=== PATIENT | male | born 1960 | race Caucasian/White ===

== ENCOUNTER → 2020-04-25 17:32 | Outpatient (CLI) | payer BC, SELFPAY | PROVIDERS: Referring Provider Nurse Practitioner Family; Visit Provider Nurse Practitioner Family | DX: Z20.828 Contact with and (suspected) exposure to other viral communicable diseases (principal); R50.9 Fever, unspecified; R09.89 Other specified symptoms and signs involving the circulatory and respiratory systems | CPT/HCPCS: 87635; C9803; U0003 ==

== ENCOUNTER → 2020-10-02 10:42 | Outpatient (CLI) | payer BC, SELFPAY ==
--- NOTE | 2020-10-02 10:47 | RAD_ITS ---
STUDY: X-RAY - THORACIC SPINE REASON FOR EXAM: Male, 60 years old. CHRONIC LOW BACK PAIN TECHNIQUE: 2 view(s) of the thoracic spine were obtained. COMPARISON: None. FINDINGS: Normal kyphosis of the thoracic spine. There is no substantial scoliosis. There is demineralization of the thoracic spine with endplate spondylosis. There is multilevel disc space narrowing of the thoracic spine. The soft tissue structures are unremarkable. RAD/Thoracic Spine 2 Views IMPRESSION: Multilevel disc space narrowing and spondylosis. Electronically Signed: Samy Workman MD at 18:14 EST , Service support ,
--- NOTE | 2020-10-02 10:47 | RAD_ITS ---
STUDY: X-RAY - LUMBAR SPINE REASON FOR EXAM: Male, 60 years old. CHRONIC LOW BACK PAIN TECHNIQUE: 3 view(s) of the lumbar spine were obtained. COMPARISON: None FINDINGS: There is an exaggerated lumbar lordosis. There is no substantial scoliosis. There is a normal alignment of the vertebrae. There is multilevel endplate spondylosis of the lumbar vertebrae. Mild degree of disc space narrowing at the L3-L4, L4-L5 and L5-S1 levels. The soft tissue structures are unremarkable. RAD/Lumbar Spine 2 or 3 Views IMPRESSION: Degenerative changes of the spine, as detailed above. Loss of the normal lumbar lordosis. Electronically Signed: Samy Workman MD at 18:22 EST , Service support ,
== END ==
PROVIDERS: PCP Nurse Practitioner Family; Referring Provider Nurse Practitioner Family; Visit Provider Nurse Practitioner Family
DX: M54.5 Low back pain (principal)
CPT/HCPCS: 72070; 72100

== ENCOUNTER → 2020-11-07 12:32 | Outpatient (CLI) | payer BC, SELFPAY ==
--- NOTE | 2020-11-07 12:49 | RAD_ITS ---
STUDY: X-RAY CHEST REASON FOR EXAM: Male, 60 years old. Chest pain, tachycardia TECHNIQUE: PA and 2 lateral views of the chest. COMPARISON: None. FINDINGS: The lungs are clear and expanded. There is no demonstrated pleural abnormality. Normal size heart. Normal mediastinum and yasir. Normal visualized pulmonary arteries. Normal visualized aortic arch and descending thoracic aorta. Normal visualized thoracic spine. Normal visualized ribs, clavicles, and shoulders. There is no demonstrated abnormality of the visualized soft tissue structures of the upper abdomen. RAD/Chest PA and Lateral IMPRESSION: Normal x-ray examination of the chest. Electronically Signed: Gutierrez Moreira MD at 13:04 EDT , Service support ,
[2020-11-07 14:02] LABS: Erythrocyte Sedimentation Rate 4 mm/hr (0-20)
[2020-11-07 14:04] LABS: Hematocrit 43.5 % (40-54); Hemoglobin 14.7 g/dL (13.0-16.5); Mean Corp Hgb Conc 33.8 g/dL (32-36); Mean Corpuscular Hgb 30.6 pg (27.0-32.0); Mean Corpuscular Volume 90.4 fL (80-94); Mean Platelet Vol. 9.6 fl (6.2-12.0); Platelet Count 267 K/mm3 (150-450); RBC Distribution Width CV 12.3 % (11.6-14.6); RBC Distribution Width SD 40.6 fl (35.1-43.9); Red Blood Count 4.81 M/mm3 (4.6-6.2); White Blood Count 5.7 K/mm3 (4.4-11.0)
[2020-11-07 14:39] LABS: ALB/GLOB Ratio 1.1 RATIO (0.9-2.4); AST(SGOT) 23 U/L (15-37); Alanine Aminotransfer ALT/SGPT 34 U/L (16-61); Albumin, Serum 3.8 g/dL (3.2-5.0); Alkaline Phosphatase 67 U/L (45-117); Anion Gap 5 (5-15); BUN 11 mg/dL (7-18); BUN/Creat Ratio 10.8 RATIO (10-20); CPK Total, Creatine Kinase 106 U/L (39-308); CRP < 2.90 mg/L (0.0-3.0); Calcium,Total 8.9 mg/dL (8.5-10.1); Chloride 103 mmol/L (98-107); Cholesterol 234 mg/dL (200); Creatinine, Serum 1.02 mg/dL (0.70-1.30); EST Glomerular Filtration Rate 79 mL/min (>60); Est Glom Filt Rate - Afr Amer 96 mL/min (>60); Globulin 3.5 g/dL (2.2-4.2); Glucose 95 mg/dL (74-106); High Density Lipoprotein 56 mg/dL; Potassium 3.9 mmol/L (3.5-5.1); Protein, Total 7.3 g/dL (6.4-8.2); Sodium Level 139 mmol/L (136-145); T4 Free Direct 1.16 ng/dL (0.76-1.46); Thyroid Stim Hormone (TSH) 1.61 uIU/mL (0.358-3.74); Triglycerides 147 mg/dL; Very Low Density Lipoprotein 29 mg/dL (5-40)
== END ==
PROVIDERS: PCP Nurse Practitioner Family; Referring Provider Nurse Practitioner Family; Visit Provider Nurse Practitioner Family
DX: Z13.220 Encounter for screening for lipoid disorders (principal); R07.9 Chest pain, unspecified; R94.31 Abnormal electrocardiogram [ECG] [EKG]; R00.2 Palpitations; R00.0 Tachycardia, unspecified
CPT/HCPCS: 36415; 71046; 80053; 80061; 82550; 84439; 84443; 84484; 85027; 85652; 86140

== ENCOUNTER → 2020-11-15 11:42 | Outpatient (CLI) | payer BC, SELFPAY ==
--- NOTE | 2020-11-15 11:49 | ECHOD_ITS ---
Reason For Study: CHEST PAIN Procedure This was a 2D Doppler, Color Flow transthoracic echocardiogram. Exam performed in department. Left Ventricle Normal LV size. Left ventricular systolic function is normal. The estimated ejection fraction is 55 %. No regional wall motion abnormalities noted. Right Ventricle Normal RV size. Normal systolic function. Atria Normal left atrium. Normal right atrium. Mitral Valve Normal mitral valve. Mild (1+) eccentric mitral valve insufficiency. Aortic Valve Normal aortic valve. Trisinus/trileaflet aortic valve. Trivial eccentric aortic valve insufficiency. Pulmonic Valve Normal pulmonic valve. Great Vessels Mild to moderately dilated aortic root. The pulmonary artery is normal size. Normal inferior vena cava. Pericardium/Pleural No pericardial effusion. MMode/2D Measurements & Calculations LVIDd: 5.0 cm IVSd: 1.0 cm Ao root diam: 4.7 cm LVIDs: 3.2 cm LVPWd: 0.90 cm RVDd: 3.3 cm FS: 35.8 % LAV(MOD-bp): 54.6 ml LA A4 area: 17.2 cm2 RA A4 area: 14.2 cm2 LAV(MOD-bp) Indexed: 25.1 ml/m2 LAV(MOD-sp2): 59.4 ml LAV(MOD-sp4): 45.1 ml Time Measurements MV dec time: 0.27 sec Doppler Measurements & Calculations MV E max jos: 46.1 cm/sec Lat Peak E' Jos: 8.0 cm/sec Med Peak E' Jos: 4.8 cm/sec MV A max jos: 53.3 cm/sec E/E' lat: 5.8 E/E' med: 9.5 MV E/A: 0.87 Ao V2 max: 113.3 cm/sec LV V1 max: 98.5 cm/sec PA V2 max: 107.9 cm/sec Ao max P.1 mmHg LV V1 max P.9 mmHg TR max jos: 264.6 cm/sec TR max P.2 mmHg ECHO/Echo Complete Interpretation Summary Normal LV size. Left ventricular systolic function is normal. The estimated ejection fraction is 55 %. Mild (1+) eccentric mitral valve insufficiency. Mild to moderately dilated aortic root. Trivial eccentric aortic valve insufficiency. Ordering Physician: Jorge Alberto Gar Referring Physician: Jorge Alberto Gar Performed By: Olivia Waterman, RODY, RVT
--- NOTE | 2020-11-15 13:00 | STRESSREP ---
Stress Test Report Exercise stress test. 60-year-old man with a history of chest pain. Resting KG demonstrates normal sinus rhythm with a rate of 61 bpm normal intervals are noted resting blood pressure is 1 and 32 over 80 mmHg. The patient exercised according to regular Maikol protocol for a total duration of 9 minutes. Patient completed stage III of the Maikol protocol. The maximum heart rate attained was 157 bpm which was 98% of max impacted heart rate the maximum workload was 10.4 metabolic equivalents. The patient did not experience any chest discomfort the test was terminated due to high blood pressure. The peak blood pressure was 210/70 mmHg. No arrhythmias were noted no chest pain was noted the rate-pressure/32,900. Exercise stress test with no EKG criteria for ischemia at a high workload. Excellent functional capacity. No ischemia noted.
== END ==
PROVIDERS: PCP Nurse Practitioner Family; Referring Provider Nurse Practitioner Family; Visit Provider Nurse Practitioner Family
DX: R00.2 Palpitations (principal); R00.0 Tachycardia, unspecified; R94.31 Abnormal electrocardiogram [ECG] [EKG]; R07.9 Chest pain, unspecified
CPT/HCPCS: 93017; 93225; 93226; 93306

== ENCOUNTER → 2020-12-11 08:30 | Outpatient (CLI) | payer BC, SELFPAY ==
--- NOTE | 2020-12-11 08:36 | CDU_ITS ---
Reason For Study: Syncope, Palpitations Rt. Velocities/BP Lt. Velocities/BP Prox CCA 102/21 cm/sec. Prox CCA 127/32 cm/sec. Mid CCA 111/32 cm/sec. Mid CCA 118/32 cm/sec. Dist CCA 98/28 cm/sec. Dist CCA 91/30 cm/sec. Prox ICA 64/13 cm/sec. Prox ICA 91/27 cm/sec. Mid ICA 71/25 cm/sec. Mid ICA 67/24 cm/sec. Dist ICA 72/30 cm/sec. Dist ICA 96/44 cm/sec. Rt. ICA/CCA = 0.7. Lt. ICA/CCA = 0.8. Prox ECA 114/19 cm/sec. Prox ECA 71/14 cm/sec. Rt. Vert. 46/10 cm/sec. Lt. Vert. 48/15 cm/sec. Right Extracranial There is intimal thickening but no significant atherosclerotic plaque noted in the right common carotid artery. There is intimal thickening but no significant atherosclerotic plaque noted in the right internal carotid artery. There is no significant atherosclerotic plaque noted in the right external carotid artery. Antegrade flow is noted in the right vertebral artery. Left Extracranial There is intimal thickening but no significant atherosclerotic plaque noted in the left common carotid artery. There is no significant atherosclerotic plaque noted in the left internal carotid artery. There is intimal thickening but no significant atherosclerotic plaque noted in the left external carotid artery. Antegrade flow is noted in the left vertebral artery. Procedure Carotid Duplex 29987. This is a Carotid Duplex examination using B-mode, color flow and specral Doppler. Exam performed in department. VL/Carotid Duplex Ultrasound Interpretation Summary Mild (<50%) stenosis right extracranial internal carotid. Mild (<50%) stenosis left extracranial internal carotid. Flow within the vertebral arteries is antegrade bilaterally. Ordering Physician: Jorge Alberto Gar Referring Physician: Jorge Alberto Gar Performed By: Marie Weber, RODY, RVT
== END ==
PROVIDERS: PCP Nurse Practitioner Family; Referring Provider Nurse Practitioner Family; Visit Provider Nurse Practitioner Family
DX: R00.2 Palpitations (principal); R55 Syncope and collapse
CPT/HCPCS: 93880

== ENCOUNTER → 2021-12-05 | Outpatient (CLI) | payer BC, SELFPAY ==
[2021-12-05 17:04] LABS: Hematocrit 42.4 % (40-54); Hemoglobin 14.4 g/dL (13.0-16.5); Mean Corpuscular Hgb 29.3 pg (27.0-32.0); Mean Corpuscular Volume 86.4 fL (80-94); Mean Platelet Vol. 9.2 fl (6.2-12.0); Platelet Count 272 K/mm3 (150-450); RBC Distribution Width CV 12.2 % (11.6-14.6); RBC Distribution Width SD 38.5 fl (35.1-43.9); Red Blood Count 4.91 M/mm3 (4.6-6.2); White Blood Count 5.7 K/mm3 (4.4-11.0)
[2021-12-05 17:54] LABS: AST(SGOT) 17 U/L (15-37); Alanine Aminotransfer ALT/SGPT 32 U/L (16-61); Albumin, Serum 3.6 g/dL (3.2-5.0); Alkaline Phosphatase 56 U/L (45-117); Anion Gap 5 (5-15); BUN 19 mg/dL (7-18); BUN/Creat Ratio 16.7 RATIO (10-20); Calcium,Total 8.7 mg/dL (8.5-10.1); Chloride 106 mmol/L (98-107); Cholesterol 224 mg/dL (200); Creatinine, Serum 1.14 mg/dL (0.70-1.30); EST Glomerular Filtration Rate 69 mL/min (>60); Est Glom Filt Rate - Afr Amer 84 mL/min (>60); Globulin 3.6 g/dL (2.2-4.2); Glucose 106 mg/dL (74-106); High Density Lipoprotein 40 mg/dL; PSA,Total - Annual Screen 1.46 ng/mL (0.00-4.00); Potassium 3.7 mmol/L (3.5-5.1); Protein, Total 7.2 g/dL (6.4-8.2); Sodium Level 140 mmol/L (136-145); Thyroid Stim Hormone (TSH) 2.97 uIU/mL (0.358-3.74); Triglycerides 226 mg/dL; Very Low Density Lipoprotein 45 mg/dL (5-40)
== END | disposition home or self-care (01) ==
LOC: LAB 16:35
PROVIDERS: PCP Nurse Practitioner Family; Referring Provider Nurse Practitioner Family; Visit Provider Nurse Practitioner Family
DX: R53.83 Other fatigue (principal); Z13.1 Encounter for screening for diabetes mellitus; Z13.6 Encounter for screening for cardiovascular disorders; Z12.5 Encounter for screening for malignant neoplasm of prostate
CPT/HCPCS: 36415; 80053; 80061; 84153; 84443; 85027; G0103

== ENCOUNTER → 2022-01-10 | Outpatient (CLI) | payer SELFPAY ==
[2022-01-09 06:00] VITALS: BP 144/85; PULSE 52; RESP 16; O2SAT 97
--- NOTE | 2022-01-10 13:35 | CT_ITS ---
STUDY: CT Chest W/O Contrast Injection 01/10/2022 5:41 PM REASON FOR EXAM: Male, 61 years old. HTN, palpitations, chest pain. Limited Chest OVER READ ONLY. Individualized dose optimization techniques were used for this CT. TECHNIQUE: Transaxial imaging was performed withoutIV contrast material. COMPARISON: None. FINDINGS: There is no pneumothorax. There is no demonstrated pleural abnormality. There are calcifications of the coronary arteries. Normal mediastinum. Normal hilar regions. Normal pulmonary arteries. There is atherosclerotic calcification of the aortic arch with tortuosity and elongation of the aortic arch and descending thoracic aorta. There is aneurysmal dilatation of the ascending aorta. The transverse diameter of the ascending aorta measures (in mm): 44. There are multi-level degenerative changes of the thoracic spine. Partially visualized hepatic hypodensities. ACR White Paper guidelines (C[place], et al. JACR 2017; 14(11):0318-1417.) suggest the following. For patients with low risk of malignancy, no further follow-up is necessary. For patients with high risk of malignancy (known malignancy with a propensity to metastasize to the liver, cirrhosis, and/or other hepatic risk factors), recommend follow-up abdominal CT or MR in [address]/Lim[address] Chest CT Cardiac Only IMPRESSION: There is aneurysmal dilatation of the ascending aorta. The transverse diameter of the ascending aorta measures (in mm): 44. Partially visualized hepatic hypodensities. ACR White Paper guidelines (Cumberland, et al. JACR 2017; 14(11):8696-3482.) suggest the following. For patients with low risk of malignancy, no further follow-up is necessary. For patients with high risk of malignancy (known malignancy with a propensity to metastasize to the liver, cirrhosis, and/or other hepatic risk factors), recommend follow-up abdominal CT or MR in 6 months. Electronically Signed: Stanislaw Garrido MD at 17:44 EDT ,
[2022-01-10 13:53] VITALS: BP 145/94; PULSE 50; RESP 16; O2SAT 100; BMI 25.0
[2022-01-10 14:15] VITALS: PULSE 50
[2022-01-10] MEDS: Nitroglycerin SL (ED/IMG/CATH) 0.4 MG TABLET SL (14:15)
[2022-01-10 14:16] LABS: CREATININE FINGERSTICK < 0.9 mg/dL (0.70-1.30); EGFR FINGERSTICK > 60.0000 mL/min (>60)
[2022-01-10 14:21] VITALS: BP 158/90; PULSE 55; RESP 16; O2SAT 97
--- NOTE | 2022-01-14 09:24 | CCTA.WCONT ---
CCTA w/Cont Coronary Arteries Date of Study:: 01/10/22 Chest pain The patient was brought to the radiology suite in the postabsorptive nonsedated state. Informed consent was obtained. The patient was hooked up to the panel monitor and good EKG assessment was made. The patient was then administered 100 cc of intravenous contrast agent after ascertaining the heart rate was in the appropriate zone. Patient had been on metoprolol. Images were reconstructed and displayed as appropriate. LEFT MAIN CORONARY ARTERY: Arises from the left coronary cusp and noted to be normal bifurcating to left anterior descending artery and left circumflex artery [] LEFT ANTERIOR DESCENDING CORONARY ARTERY: No significant stenosis noted in this vessel: Diagonal vessel was noted with no significant stenosis [] LEFT CIRCUMFLEX CORONARY ARTERY: Gave off a first obtuse marginal branch with no significant stenosis [] RIGHT CORONARY ARTERY: Large dominant vessel with no significant stenosis noted. [] THORACIC AORTA: Normal in size [] PULMONARY ARTERY: Normal in size [] LEFT ATRIUM/APPENDAGE: [] MITRAL VALVE: [] AORTIC VALVE: Trileaflet [] LEFT VENTRICLE: Normal in size [] CORONARY CALCIUM SCORE: Less than 1 [] Conclusion: Coronary calcium score of less than 1 and coronary anatomy defined with no significant atherosclerotic plaquing.
== END | disposition home or self-care (01) ==
LOC: CT 13:32
PROVIDERS: PCP Nurse Practitioner Family; Referring Provider Nurse Practitioner Family; Visit Provider Nurse Practitioner Family
DX: I10 Essential (primary) hypertension (principal); R00.2 Palpitations; R07.9 Chest pain, unspecified
CPT/HCPCS: 75571; 75574; 76380; Q9967

== ENCOUNTER → 2023-09-03 | Outpatient (CLI) | payer OTHER, SELFPAY ==
[2023-09-03 15:10] LABS: Hematocrit 42.8 % (40-54); Hemoglobin 14.4 g/dL (13.0-16.5); Mean Corp Hgb Conc 33.6 g/dL (32-36); Mean Corpuscular Hgb 29.6 pg (27.0-32.0); Mean Corpuscular Volume 88.1 fL (80-94); Mean Platelet Vol. 9.2 fl (6.2-12.0); Platelet Count 236 K/mm3 (150-450); RBC Distribution Width CV 12.4 % (11.6-14.6); RBC Distribution Width SD 40.1 fl (35.1-43.9); Red Blood Count 4.86 M/mm3 (4.6-6.2); White Blood Count 5.9 K/mm3 (4.4-11.0)
[2023-09-03 15:41] LABS: AST(SGOT) 24 U/L (15-37); Alanine Aminotransfer ALT/SGPT 30 U/L (16-61); Albumin, Serum 3.6 g/dL (3.2-5.0); Alkaline Phosphatase 67 U/L (45-117); Anion Gap 2 (5-15); BUN 14 mg/dL (7-18); BUN/Creat Ratio 14.5 RATIO (10-20); Calcium,Total 8.6 mg/dL (8.5-10.1); Chloride 108 mmol/L (98-107); Cholesterol 225 mg/dL (200); Creatinine, Serum 0.97 mg/dL (0.70-1.30); EST Glomerular Filtration Rate 83 mL/min (>60); Est Glom Filt Rate - Afr Amer 101 mL/min (>60); Globulin 3.5 g/dL (2.2-4.2); Glucose 103 mg/dL (74-106); High Density Lipoprotein 51 mg/dL; PSA,Total - Annual Screen 1.06 ng/mL (0.00-4.00); Potassium 3.8 mmol/L (3.5-5.1); Protein, Total 7.1 g/dL (6.4-8.2); Sodium Level 137 mmol/L (136-145); Triglycerides 191 mg/dL; Very Low Density Lipoprotein 38 mg/dL (5-40)
[2023-09-03 15:49] LABS: Microalbumin,Random Urine 12.8 mg/L (NO RANGE EST.); Microalbumin:Creatinine Ratio 6.3 mg/g CRE (<30 mg/g CRE)
== END | disposition home or self-care (01) ==
PROVIDERS: PCP Nurse Practitioner Family; Referring Provider Nurse Practitioner Family; Visit Provider Nurse Practitioner Family
DX: I10 Essential (primary) hypertension (principal); Z13.1 Encounter for screening for diabetes mellitus; Z13.6 Encounter for screening for cardiovascular disorders; Z12.5 Encounter for screening for malignant neoplasm of prostate
CPT/HCPCS: 36415; 80053; 80061; 82043; 82570; 83036; 84153; 85027; G0103

== ENCOUNTER → 2024-04-23 | Outpatient (CLI) | payer OTHER, SELFPAY ==
[2024-04-23 14:39] LABS: Hematocrit 45.3 % (40-54); Hemoglobin 15.4 g/dL (13.0-16.5); Mean Corpuscular Hgb 29.3 pg (27.0-32.0); Mean Corpuscular Volume 86.1 fL (80-94); Mean Platelet Vol. 9.1 fl (6.2-12.0); Platelet Count 263 K/mm3 (150-450); RBC Distribution Width CV 12.1 % (11.6-14.6); RBC Distribution Width SD 38.2 fl (35.1-43.9); Red Blood Count 5.26 M/mm3 (4.6-6.2); White Blood Count 6.4 K/mm3 (4.4-11.0)
[2024-04-23 15:38] LABS: AST(SGOT) 16 U/L (15-37); Alanine Aminotransfer ALT/SGPT 25 U/L (16-61); Albumin, Serum 3.8 g/dL (3.2-5.0); Alkaline Phosphatase 60 U/L (45-117); Anion Gap 6 (5-15); BUN 8 mg/dL (7-18); BUN/Creat Ratio 7.5 RATIO (10-20); Calcium,Total 9.2 mg/dL (8.5-10.1); Chloride 108 mmol/L (98-107); Creatinine, Serum 1.07 mg/dL (0.70-1.30); EST Glomerular Filtration Rate 74 mL/min (>60); Est Glom Filt Rate - Afr Amer 90 mL/min (>60); Globulin 3.9 g/dL (2.2-4.2); Glucose 136 mg/dL (74-106); Potassium 3.6 mmol/L (3.5-5.1); Protein, Total 7.7 g/dL (6.4-8.2); Sodium Level 139 mmol/L (136-145)
[2024-04-26 14:08] LABS: Giardia Lamblia, Stool EIA Negative (Negative)
== END | disposition home or self-care (01) ==
PROVIDERS: PCP Nurse Practitioner Family; Referring Provider Nurse Practitioner Family; Visit Provider Nurse Practitioner Family
DX: K52.9 Noninfective gastroenteritis and colitis, unspecified (principal)
CPT/HCPCS: 36415; 80053; 83630; 85027; 87329

== ENCOUNTER → 2024-09-03 | Outpatient (CLI) | payer OTHER, SELFPAY | END | disposition home or self-care (01) | LOC: LABSPEC 15:17 | PROVIDERS: PCP Nurse Practitioner Family; Referring Provider Nurse Practitioner Family; Visit Provider Nurse Practitioner Family | DX: K52.9 Noninfective gastroenteritis and colitis, unspecified (principal) | CPT/HCPCS: 87493 ==

== ENCOUNTER → 2024-10-07 | Outpatient (CLI) | payer OTHER, SELFPAY ==
[2024-10-09 16:08] LABS: Immunoglobulin A < 5 mg/dL (61-437); t-Transglutaminase IgA <2 U/mL (0-3)
== END | disposition home or self-care (01) ==
LOC: LAB 14:55
PROVIDERS: PCP Nurse Practitioner Family; Referring Provider Nurse Practitioner Acute Care; Visit Provider Nurse Practitioner Acute Care
DX: K58.0 Irritable bowel syndrome with diarrhea (principal)
CPT/HCPCS: 36415; 82784; 83516

== ENCOUNTER → 2024-11-02 | Outpatient (CLI) | payer OTHER, SELFPAY | END | disposition home or self-care (01) | PROVIDERS: PCP Nurse Practitioner Family; Referring Provider Nurse Practitioner Acute Care; Visit Provider Nurse Practitioner Acute Care | DX: R15.2 Fecal urgency (principal); R19.7 Diarrhea, unspecified; R76.8 Other specified abnormal immunological findings in serum | CPT/HCPCS: 36415; 83516 ==

== ENCOUNTER → 2024-11-08 | Outpatient (CLI) | payer OTHER, SELFPAY ==
[2024-11-10 16:09] LABS: Calprotectin, Stool 6 ug/g (0-120)
== END | disposition home or self-care (01) ==
LOC: LABSPEC 14:59
PROVIDERS: PCP Nurse Practitioner Family; Referring Provider Nurse Practitioner Acute Care; Visit Provider Nurse Practitioner Acute Care
DX: K58.0 Irritable bowel syndrome with diarrhea (principal)
CPT/HCPCS: 83993

== ENCOUNTER 2024-12-07 05:11 | Day surgery (SDC) | payer OTHER, SELFPAY ==
--- NOTE | 2024-12-03 14:49 | PAT.ANE_ITS ---
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 When Was Last Pacemaker Check QUESTION #4 FULL TEXT: You/Your Family Experience fever (hyperthermia) with Anesthesia Last Oral Intake Last Oral intake: Last Oral Intake NPO since Meds taken in AM with sips of water? Meds patient instructed to take am of surgery PONV PONV - patent litigation associate: PONV - patent litigation associate Female No 12/03/24 13:58 HX of Motion Sickness No 12/03/24 13:58 HX of N/V After Surgery No 12/03/24 13:58 Non-Smoker Yes 12/03/24 13:58 Duration of Surgery greater No 12/03/24 13:58 than 60 minutes Number of Risk Factors 1 12/03/24 13:58 PONV Score Low Risk 12/03/24 13:58 Height & Weight Height & Weight: Anesthesia: Height & Weight Height 6 ft 2 in 10/07/24 14:09 Respiratory Assessment Respiratory Assessment - patent litigation associate: Respiratory Tract Infection Hx - patent litigation associate Hx Respiratory Tract Infection No 12/03/24 13:58 STOP Sleep Apnea STOP Sleep Apnea - patent litigation associate: STOP Sleep Apnea - patent litigation associate Hx Hypertension Yes 12/03/24 13:58 Hx Sleep Apnea No 12/03/24 13:58 CPAP BIPAP Do you snore loudly (louder No 12/03/24 13:58 than talking or can be heard Do you often feel tired/ No 12/03/24 13:58 fatigued/ sleepy during daytime? Has anyone observed you stop No 12/03/24 13:58 breathing during sleep? STOP Results Negative 12/03/24 13:58 QUESTION #5 FULL TEXT : Do you snore loudly (louder than talking or can be heard through closed doors)? 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 Specify any problems Hx of Preganancy in last 3 N/A 12/03/24 13:58 Months Nurse Filling Out Transfusion VLEHMAN 12/03/24 13:58 & Questions: Date: 12/03/24 12/03/24 13:58 Time: 13:58 12/03/24 13:58 Patient unable to answer at this time (ie. confused, unrespo /Reproduction History /Reproductive History - patent litigation associate: /Reproductive Hx- patent litigation associate Hx Now No 12/03/24 13:58 Gestational Age (in weeks): EDC: Hx Hx Para Hx Section SAB PFSH Medical History Wears glasses Anxiety Marijuana use Alcohol use Arthritis Dietary restriction Gastric reflux Non-smoker History of irregular heartbeat History of echocardiogram History of stress test Cardiology follow-up encounter Dizziness Epigastric pain Osteoarthritis IBS (irritable bowel syndrome) HTN (hypertension) Sciatica Essential (primary) hypertension Insomnia Chronic low back pain Anxiety and depression Hyperlipidemia Dilated aortic root Non-sustained ventricular tachycardia Home Medications ?Medication ?Instructions ?Recorded ?Last Taken ?Type escitalopram oxalate 20 mg tablet 20 mg PO DAILY 12/09 Unknown History multivitamin 1 tab PO DAILY 12/09/20 Unkn own History alprazolam 0.25 mg tablet 0.25 mg PO BID PRN anxiety 0 12/13/20 Unknown History fluticasone propionate 50 1 spray intranasal DAILY PRN 12/13/20 Unknown History mcg/actuation nasal allergy symptoms spray,suspension (Flonase Allergy Relief) colesevelam 625 mg tablet 1,875 mg PO BID 10/07/24 Unk nown History diltiazem HCl 120 mg 60 mg PO BID 10/07/24 Unknow n History capsule,extended release 24 hr meloxicam 15 mg tablet 15 mg PO QDAY 10/07/24 Unkno wn History pantoprazole 20 mg tablet,delayed 20 mg PO QDAY Unknown History release tadalafil 5 mg tablet 5 mg PO QDAY 10/07/24 Unknow n History zolpidem 10 mg tablet 10 mg PO QHS 10/07/24 Unknow n History Allergy/AdvReac Type Severity Reaction Status Date / Time Sulfa (Sulfonamide Allergy hives Verified 12/03/24 13:54 Antibiotics) clarithromycin (From Biaxin) AdvReac diarrhea Verified 12/03/24 13:54 Family History Father Cancer throat Mother Hypertension Arthritis Grandfather Alcoholism Myocardial infarction Surgical History History of discectomy History of vasectomy Social History Smoking Status: Never smoker alcohol intake: current alcohol intake frequency: 3 or more drinks per day Alcohol type: hard liquor substance use type: marijuana Audit: Pertinent Findings Pertinent Findings Stress test pertinent findings: 11/15/2020. 10.4 METS. Negative. Echo (EF%) pertinent findings: 11/15/2020. EF 55% mild to moderate dilated aortic root. Consult pertinent findings: Cardiology 12/13/2020. Hypertension. Continue medication. Dilated aortic root chronic. 4.7 cm per echo 11/15/2020. Stable Recommendation Anesthesia Recommendation Anesthesia recommendation: OPTIMIZED for anesthesia
[2024-12-07] VITALS (8 sets, daily range): BP systolic 123–156; BP diastolic 73–91; PULSE 60–69; RESP 16–18; TEMP 36.5–36.7; O2SAT 95–98; BMI 25.5
--- NOTE | 2024-12-07 03:30 | COLBX_PTH ---
PATIENT: STEFFANIE PACK LOC: EN U#:[id number] AGE/SX: 64/M ROOM: RE12/07/[address]: Dr. Tae Gerber DO : 1960 BED: DIS: 12/07/2024 SPEC #: [id number] RECD: 12/07/24 08:08 STATUS: DYAN RASHIDA #: [id number] TIFFANY: 12/07/24 03:[address]: Tae Gerber DEPT: SURGICAL PATHOLOGY RECD BY: Shen Marquez ENTERED: 12/07/24 09:44 SP TYPE: COLON BX GIOVANNA DR: Jorge Alberto Gar, [employer]-C Tissues: A - Sigmoid colon biopsy Procedures: Surgery Specimen Level IV HEADER OPERATION: Flexible sigmoidoscopy with biopsy PRE-OP DIAGNOSIS: Diarrhea, irritable bowel syndrome with diarrhea, fecal urgency TISSUE SUBMITTED: A- Sigmoid colon biopsy MICROSCOPIC DIAGNOSIS A. Sigmoid colon, biopsy: * Superficial epithelial damage with slightly increased intraepithelial lymphocytes - see note. * Negative for acute inflammation, granulomas, and crypt distortion. * Note: The histologic findings raise consideration of early/evolving lymphocytic (microscopic) colitis vs medication injury or infection. There is no appreciable thickening of the subepithelial collagen table. Recommend correlation with clinical and endoscopic findings. MICROSCOPIC DESCRIPTION Slides are reviewed. GROSS DESCRIPTION A. Received in formalin in a container labeled with the patient's name, date of , and sigmoid colon biopsy are multiple sawant-pink fragments of mucosal tissue measuring 1.0 x 0.6 x 0.3 cm in aggregate. Submitted in toto in A1. [facility] 12-07-2024 CPT:99795
[2024-12-07] MEDS: Lactated Ringers 1,000 ML 15 ML IV (06:02)
--- NOTE | 2024-12-07 06:35 | PRE.ANES_ITS ---
ASA Classification* ASA Classification ASA Classification: 2 Assessment & Plan Anesthesia* Anesthesia Assessment Anesthesia Assessment: Discussed sedation and/or anesthesia options, risks, benefits, and alternatives with patient/parents/legal guardian/POA. Questions invited. The patient/parents/legal guardian/POA seems to understand and agrees to proceed with anesthesia plan. Reviewed the physical assessment, medical history, allergy history and patient home medications list prior to surgery/procedure/anesthetic and documented any changes. Performed airway and anesthesia risk assessments. Anesthesia Type Anesthesia Type: MAC History Source History Obtained from:: Patient and Chart Anesthesia Focused Assessment* Temperature: 98.1 F Pulse Rate: 64 Blood Pressure: 156/78 Respiratory Rate: 16 Pulse Ox: 98 Oxygen Delivery Method: Room Air Airway Assessment Mouth opens: >3 cm Mallampati Score: I Teeth Condition: Caps/Crowns (Patient has a couple of crowns. They are tight.) Neck Range of motion (ROM): Full ROM Focused Labs Anesthesia Preop lab: CBC WBC 6.4 K/mm3 (4.4-11.0) 04/23/24 14:18 04/23/24 RBC 5.26 M/mm3 (4.6-6.2) 04/23/24 14:18 04/23/24 Hgb 15.4 g/dL (13.0-16.5) 04/23/24 14:18 04/23/24 Hct 45.3 % (40-54) 04/23/24 14:18 04/23/24 Plt Count 263 K/mm3 (150-450) 04/23/24 14:18 04/23/24 CHEMISTRY Potassium 3.6 mmol/L (3.5-5.1) 04/23/24 14:18 04/23/24 Sodium 139 mmol/L (136-145) 04/23/24 14:18 04/23/24 BUN 8 mg/dL (7-18) 04/23/24 14:18 04/23/24 Creatinine 1.07 mg/dL (0.70-1.30) 04/23/24 14:18 04/23/24 Glucose 136 mg/dL (74-106) H 04/23/24 14:18 04/23/24 TSH 2.97 uIU/mL (0.358-3.74) 12/05/21 16:37 COAG Pre-Assessment Diagnosis/Proposed Procedure Planned Operative Procedure(s): FLEX SIGMOID Anesthesia History 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 When Was Last Pacemaker Check QUESTION #4 FULL TEXT: You/Your Family Experience fever (hyperthermia) with Anesthesia Last Oral Intake Last Oral intake: Last Oral Intake NPO since 17:00 12/07/24 05:52 Meds taken in AM with sips of No 12/07/24 05:52 water? 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 Female No 12/03/24 13:58 HX of Motion Sickness No 12/03/24 13:58 HX of N/V After Surgery No 12/03/24 13:58 Non-Smoker Yes 12/03/24 13:58 Duration of Surgery greater No 12/03/24 13:58 than 60 minutes Number of Risk Factors 1 12/03/24 13:58 PONV Score Low Risk 12/03/24 13:58 Height & Weight Height & Weight: Anesthesia: Height & Weight Height 6 ft 2 in 12/07/24 05:52 Weight: 90.265 kg 12/07/24 05:52 Body Mass Index (BMI) 25.5 12/07/24 05:52 Respiratory Assessment Respiratory Assessment - 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 Has anyone observed you stop No 12/03/24 13:58 breathing during sleep? STOP Results Negative 12/03/24 13:58 QUESTION #5 FULL TEXT : Do you snore loudly (louder than talking or can be heard through closed doors)? 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 Specify any problems Hx of Preganancy in last 3 N/A 12/03/24 13:58 Months Nurse Filling Out Transfusion [facility] 12/03/24 13:58 & Questions: Date: 12/03/24 12/03/24 13:58 Time: 13:58 12/03/24 13:58 Patient unable to answer at this time (ie. 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: /Reproductive Hx- pottery machine operator Hx Now No 12/03/24 13:58 Gestational Age (in weeks): EDC: Hx Hx Para Hx Section SAB Active Medications Active Medications: Current Medications Generic Name Dose Route Start Last Admin Trade Name Freq PRN Reason Stop Dose Admin Lactated Ringer's 1,000 mls @ 15 mls/hr 12/07/24 05:45 12/07/24 06:02 IV 15 mls/hr .Q48H YOUSUF Administration PFSH Medical History Wears glasses Anxiety Marijuana use Alcohol use Arthritis Dietary restriction Gastric reflux Non-smoker History of irregular heartbeat History of echocardiogram History of stress test Cardiology follow-up encounter Dizziness Epigastric pain Osteoarthritis IBS (irritable bowel syndrome) HTN (hypertension) Sciatica Essential (primary) hypertension Insomnia Chronic low back pain Anxiety and depression Hyperlipidemia Dilated aortic root Non-sustained ventricular tachycardia Home Medications ?Medication ?Instructions ?Recorded ?Last Taken ?Type escitalopram oxalate 20 mg tablet 20 mg PO DAILY 12/0912/06/24 07:00 History multivitamin 1 tab PO DAILY 12/09/20 05/11/26 History alprazolam 0.25 mg tablet 0.25 mg PO BID PRN anxiety 0 12/13/20 Unknown History fluticasone propionate 50 1 spray intranasal DAILY PRN 12/13/20 Unknown History mcg/actuation nasal allergy symptoms spray,suspension (Flonase Allergy Relief) colesevelam 625 mg tablet 1,875 mg PO BID 10/07/2412/26 07:00 History diltiazem HCl 120 mg 60 mg PO BID 10/07/24 07:00 History capsule,extended release 24 hr meloxicam 15 mg tablet 15 mg PO QDAY 10/07/24 Unkno wn History pantoprazole 20 mg tablet,delayed 20 mg PO QDAY 12/05/24 History release tadalafil 5 mg tablet 5 mg PO QDAY 10/07/24 Unknow n History zolpidem 10 mg tablet 10 mg PO QHS 10/07/24 History Allergy/AdvReac Type Severity Reaction Status Date / Time Sulfa (Sulfonamide Allergy hives Verified 12/07/24 05:48 Antibiotics) clarithromycin (From Biaxin) AdvReac diarrhea Verified 12/07/24 05:48 Family History Father Cancer throat Mother Hypertension Arthritis Grandfather Alcoholism Myocardial infarction Surgical History History of discectomy History of vasectomy Social History Smoking Status: Never smoker alcohol intake: current alcohol intake frequency: 3 or more drinks per day Alcohol type: hard liquor substance use type: marijuana Review of Systems (Anesthesia) ROS Narrative System reviewed and no additional complaints, except as documented.
--- NOTE | 2024-12-07 06:49 | PCM.HP.STD ---
HPI - General General Date of Admission: 12/07/24 Date of Service: 12/07/24 Chief Complaint: fecal incontence HPI Narrative STEFFANIE PACK, is a 64 M who - reports symptoms began February 2024 after eating out at night - fecal continence - ever since then he has had diarrhea - he typically has 3 BM every morning and then 20 minutes after every meal, snack or even a drink he has to have a BM - first BM of day is usually half baked then followed by loose/watery stools - denies any bleeding - denies any pain - denies any fevers or night sweats - reports he lost 25lbs towards the end of 2023 but has regained this weight - Colesevelam 3 tabs BID - 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 20mg daily - without Colesevelam - total blow out and explosive - denies any family h/o colon CA, crohns or colitis - denies any family h/o celiac disease - Meloxicam 15mg QD PRN PFSH Medical History Wears glasses Anxiety Marijuana use Alcohol use Arthritis Dietary restriction Gastric reflux Non-smoker History of irregular heartbeat History of echocardiogram History of stress test Cardiology follow-up encounter Dizziness Epigastric pain Osteoarthritis IBS (irritable bowel syndrome) HTN (hypertension) Sciatica Essential (primary) hypertension Insomnia Chronic low back pain Anxiety and depression Hyperlipidemia Dilated aortic root Non-sustained ventricular tachycardia Home Medications ?Medication ?Instructions ?Recorded ?Last Taken ?Type escitalopram oxalate 20 mg tablet 20 mg PO DAILY 12/09/20 12/06/24 07:00 History multivitamin 1 tab PO DAILY 12/09/20 12/05/24 History alprazolam 0.25 mg tablet 0.25 mg PO BID PRN anxiety 12/13/20 Unknown History fluticasone propionate 50 1 spray intranasal DAILY PRN 12/13/20 Unknown History mcg/actuation nasal allergy symptoms spray,suspension (Flonase Allergy Relief) colesevelam 625 mg tablet 1,875 mg PO BID 10/07/24 12/06/24 07:00 History diltiazem HCl 120 mg 60 mg PO BID 10/07/24 12/06/24 07:00 History capsule,extended release 24 hr meloxicam 15 mg tablet 15 mg PO QDAY 10/07/24 Unknown History pantoprazole 20 mg tablet,delayed 20 mg PO QDAY 10/07/24 12/05/24 History release tadalafil 5 mg tablet 5 mg PO QDAY 10/07/24 Unknown History zolpidem 10 mg tablet 10 mg PO QHS 10/07/24 12/06/24 History Allergy/AdvReac Type Severity Reaction Status Date / Time Sulfa (Sulfonamide Allergy hives Verified 12/07/24 05:48 Antibiotics) clarithromycin (From Biaxin) AdvReac diarrhea Verified 12/07/24 05:48 Family History Father Cancer throat Mother Hypertension Arthritis Grandfather Alcoholism Myocardial infarction Surgical History History of discectomy History of vasectomy Social History Smoking Status: Never smoker alcohol intake: current alcohol intake frequency: 3 or more drinks per day Alcohol type: hard liquor substance use type: marijuana ROS Constitutional Constitutional: Denies fatigue, fever(s), poor appetite, weight gain or weight loss Gastrointestinal Gastrointestinal: Denies belching, bloating, change in bowel habits, change in stool character, chewing difficulty, coffee ground emesis, constipation, cramping, diarrhea, dyspepsia, dysphagia, early satiety, excessive flatus, fecal incontinence, heartburn, hematemesis, hematochezia, hemorrhoids, loose stools, melena, nausea, odynophagia, rectal bleeding, tenesmus, vomiting or weight changes Vital Signs Vital Signs Vital Signs: 12/07/24 05:51 12/07/24 05:52 12/07/24 06:39 Temperature 98.1 F 98.1 F Temperature Source Temporal Pulse Rate 64 64 Respiratory Rate 16 16 Respiratory Pattern Normal Blood Pressure 156/78 H 156/78 H Blood Pressure Mean 104 Blood Pressure Source Monitor Blood Pressure Position Semi-Fowlers Blood Pressure Location Left Arm Pulse Ox 98 98 Oxygen Delivery Method Room Air Room Air Weight Weight: 199 lb Body Mass Index (BMI) 25.5 Physical Exam Const alert, oriented x3, no apparent distress and healthy appearing General Appearance: cooperative GI normal to inspection, nondistended, normoactive bowel sounds, soft to palpation, non-tender and non-distended Percussion: normal to percussion Rectal Exam: deferred Assessment & Plan Assessment/Plan (1) Diarrhea: (2) Fecal urgency: PLAN: Assessment and Plan Assessment and Plan (1) Diarrhea: Qualifiers: Diarrhea type: due to malabsorption Qualified Code(s): K90.9 - Intestinal malabsorption, unspecified; R19.7 - Diarrhea, unspecified (2) Irritable bowel syndrome with diarrhea: Status: Acute (3) Fecal urgency: Status: Acute Orders: Orders Calprotectin, Stool Today K58.0 - Irritable bowel syndrome with diarrhea Immunoglobulin A Today K58.0 - Irritable bowel syndrome with diarrhea t-Transglutaminase IgA Today K58.0 - Irritable bowel syndrome with diarrhea Plan 64y/o male presents for consultation with complaints of diarrhea. He complains of sudden onset diarrhea which began February 2024 after dining out at [place]. Diarrhea was explosive and experiencing episodes of fecal incontinence. Stool negative for C. Diff 09/03/2024. Giardia, stool culture, lactoferrin negative April 2024. Screening colonoscopy was unremarkable June 2024 ([facility]). Despite starting Colesevelam 3 tabs BID he is continuing to experience frequent stools every morning and after meals and drinks. His weight is stable and denies any bleeding or pain. He denies any new medications or dietary changes. I have ordered calprotectin, celiac serologies and scheduled him for a Sigmoidoscopy to r/o microscopic colitis. In the interim I will treat him with Xifaxan TID for IBS-D. Patient Instructions: Sigmoidoscopy to r/o microscopic colitis Celiac serologies Calprotectin Xifaxan to [facility]
--- NOTE | 2024-12-07 07:09 | OP.FLEXSIG_ITS ---
Patient Name: Dilshad Pena Procedure Date: 12/07/2024 6:11 AM Date of : 1960 Age: 64 Procedure: Flexible Sigmoidoscopy Indications: Clinically significant diarrhea of unexplained origin, Functional diarrhea Providers: Tae Gerber DO Referring MD: Jorge Alberto Gar Medicines: Monitored Anesthesia Care Patient Profile: This is a 64 year old male. Refer to note in patient chart for documentation of history and physical. Last Colonoscopy: within the past year. Complications: No immediate complications. Procedure: Pre-Anesthesia Assessment: - Prior to the procedure, a History and Physical was performed, and patient medications and allergies were reviewed. The patient is competent. The risks and benefits of the procedure and the sedation options and risks were discussed with the patient. All questions were answered and informed consent was obtained. Patient identification and proposed procedure were verified by the physician in the pre-procedure area. Mental Status Examination: alert and oriented. Airway Examination: normal oropharyngeal airway and neck mobility. Respiratory Examination: clear to auscultation. CV Examination: normal. Prophylactic Antibiotics: The patient does not require prophylactic antibiotics. Prior Anticoagulants: The patient has taken no anticoagulant or antiplatelet agents. ASA Grade Assessment: II - A patient with mild systemic disease. After reviewing the risks and benefits, the patient was deemed in satisfactory condition to undergo the procedure. The anesthesia plan was to use monitored anesthesia care (MAC). Immediately prior to administration of medications, the patient was re-assessed for adequacy to receive sedatives. The heart rate, respiratory rate, oxygen saturations, blood pressure, adequacy of pulmonary ventilation, and response to care were monitored throughout the procedure. The physical status of the patient was re-assessed after the procedure. After obtaining informed consent, the endoscope was passed under direct vision. Throughout the procedure, the patient's blood pressure, pulse, and oxygen saturations were monitored continuously. The Colonoscope was introduced through the anus and advanced to the sigmoid colon. The flexible sigmoidoscopy was accomplished without difficulty. The patient tolerated the procedure well. The quality of the bowel preparation was adequate. Scope In: 6:57:41 AM Scope Out: 7:01:32 AM Total Procedure Duration Time 0 hours 3 minutes 51 seconds Findings: The perianal and digital rectal examinations were normal. An area of mildly congested mucosa was found in the recto-sigmoid colon and in the sigmoid colon. Biopsies were taken with a cold forceps for histology. Verification of patient identification for the specimen was done. Estimated blood loss was minimal. Impression: - Congested mucosa in the recto-sigmoid colon and in the sigmoid colon. Biopsied. Recommendation: - Continue present medications. Procedure Code(s): --- Professional --- 11279, Sigmoidoscopy, flexible; with biopsy, single or multiple CPT copyright 2021 [employer]. All rights reserved. The codes documented in this report are preliminary and upon food services manager review may be revised to meet current compliance requirements. Tae Gerber DO 12/07/2024 7:08:13 AM This report has been signed electronically. Number of Addenda: 0 Note Initiated On: 12/07/2024 6:11 AM
--- NOTE | 2024-12-07 07:09 | OP.CCLET_ITS ---
12/07/2024 Jorge Alberto Gar Re : Flexible Sigmoidoscopy procedure for Dilshad Pena Ruthr Cong This procedure was performed on Saturday, December 07, 2024. My impressions and recommendations are as follows: Impressions : - Congested mucosa in the recto-sigmoid colon and in the sigmoid colon. Biopsied. Recommendations : - Continue present medications. My findings are described in the full procedure note, which is enclosed. If I can be of further assistance, please feel free to contact me at . Sincerely, Tae Gerber, 12/07/2024 7:08:13 AM This report has been signed electronically.
--- NOTE | 2024-12-07 07:13 | PCM.POST.ANE ---
Anesthesia: Postop Eval I Current Vital Signs Temperature: 97.7 F Pulse Rate: 61 Blood Pressure: 123/76 Respiratory Rate: 16 Pulse Ox: 97 Oxygen Delivery Method: Room Air Assessment Airway patent: Yes Spontaneous unlabored respirations: Yes Mental status: Asleep nausea: No Vomiting: No Anesthesia Complication: No Fluid Hydration Crystalloid volume administer (ml): 400 Total IV fluid infused: 400 Progress Note Anesthesia document: Postop Eval 1 completed: Yes
--- NOTE | 2024-12-07 07:39 | PCM.POSTANE2 ---
Anesthesia Postop Eval I Sum Postop Eval Completion status Anesthesia document: Postop Eval 1 completed: Yes Anesthesia Postop Eval I Summary Anesthesia Postop Eval I Summary: Anesthesia Postop Eval I: Assessment Summary Airway patent Yes 12/07/24 07:14 [email or web address] Spontaneous unlabored Yes 12/07/24 07:14 [email or web address] respirations Mental status Asleep 12/07/24 07:14 [email or web address] nausea No 12/07/24 07:14 [email or web address] Vomiting No 12/07/24 07:14 [email or web address] Anesthesia Postop Eval I: Fluid Summary Crystalloid volume administer 400 12/07/24 07:14 [email or web address] (ml) Colloids volume administered ( ml) Blood Product volume administered (ml) Total IV fluid infused 400 12/07/24 07:14 [email or web address] Anesthesia Postop Eval I: Summary Notes Anesthesia Complication No 12/07/24 07:14 [email or web address] Anesthesia Complication Comment: Post-operative progress note Anesthesia: Postop Eval II Evaluation Mental status: Awake and Calm Pain Level: 0 nausea: No Vomiting: No Complications Anesthesia Complication: No
== END 2024-12-07 07:45 | disposition home or self-care (01) ==
LOC: EN 05:37 → AC 05:55
PROVIDERS: PCP Nurse Practitioner Family; Referring Provider Nurse Practitioner Family; Visit Provider Internal Medicine Gastroenterology
PROC: 0DJD8ZZ Inspection of Lower Intestinal Tract, Via Natural or Artificial Opening Endoscopic (ICD-10-PCS; CPT 45330; principal; 2024-12-07 06:25)
DX: K31.89 Other diseases of stomach and duodenum (principal); K58.0 Irritable bowel syndrome with diarrhea; I10 Essential (primary) hypertension; K21.9 Gastro-esophageal reflux disease without esophagitis; F41.9 Anxiety disorder, unspecified; F32.A Depression, unspecified; Z79.899 Other long term (current) drug therapy
CPT/HCPCS: 45331; 88305; J2405

== ENCOUNTER → 2025-05-23 | Outpatient (CLI) | payer OTHER, SELFPAY ==
[2025-05-23 16:03] LABS: Vitamin B12 476 pg/mL (180-914)
[2025-05-26 13:08] LABS: Vitamin D 1,25-Dihydroxy 51.3 pg/mL (24.8-81.5)
== END | disposition home or self-care (01) ==
LOC: LAB 14:48
PROVIDERS: PCP Nurse Practitioner Family; Referring Provider Nurse Practitioner Acute Care; Visit Provider Nurse Practitioner Acute Care
DX: K52.832 Lymphocytic colitis (principal); K90.0 Celiac disease; R19.7 Diarrhea, unspecified
CPT/HCPCS: 36415; 82607; 82652; 83516; 84590

== ENCOUNTER 2025-07-31 14:42 | Observation (INO) | payer OTHER, MEDICARE, SELFPAY ==
[2025-07-31 14:43] VITALS: BP 141/85; PULSE 87; RESP 14; TEMP 36.6; O2SAT 98; BMI 26.5
[2025-07-31 14:55] LABS: Hematocrit 44.3 % (40-54); Hemoglobin 15.4 g/dL (13.0-16.5); Immature Granulocytes Count 0.010 X10^3/uL (0.0-0.0); Mean Corp Hgb Conc 34.8 g/dL (32-36); Mean Corpuscular Volume 84.9 fL (80-94); Mean Platelet Vol. 9.3 fl (6.2-12.0); NRBC Flagged by Analyzer 0 % (0-5); Platelet Count 219 K/mm3 (150-450); RBC Distribution Width CV 12.9 % (11.6-14.6); RBC Distribution Width SD 39.8 fl (35.1-43.9); Red Blood Count 5.22 M/mm3 (4.6-6.2); White Blood Count 5.9 K/mm3 (4.4-11.0)
[2025-07-31 15:16] LABS: AST(SGOT) 23 U/L (<=37); Alanine Aminotransfer ALT/SGPT 32 U/L (<=46); Albumin, Serum 3.9 g/dL (3.4-4.8); Alkaline Phosphatase 54 U/L (40-129); Anion Gap 8 (7-18); BUN 15 mg/dL (4-19); BUN/Creat Ratio 11.4 RATIO (10-20); Calcium,Total 9.6 mg/dL (7.6-11.0); Carbon Dioxide 29.2 mmol/L (20.0-29.0); Chloride 103 mmol/L (96-106); Estimated Creatinine Clearance 66.89 ml/min (50-250); Globulin 3.1 g/dL (2.2-4.2); Glucose 111 mg/dL (70-99); Lipase 44 U/L (13-75); Potassium 3.8 mmol/L (3.5-5.1)
--- NOTE | 2025-07-31 15:35 | ED.VIS.GI ---
HPI HPI - GI History of Present Illness Chief Complaint: Diarrhea Informant: patient Abdominal Pain/Flank Pain Onset: Days (3) Context: Gradual Onset Timing: Intermittent Quality: Dull and Sharp Location: Diffuse Worsened by: Movement Relieved by: Remaining Still (Laying flat) Nausea/Vomiting/Emesis GI Symptom: Positive for Nausea and Vomiting Onset: Days (3) Diarrhea/Melena/Hematochezia GI Symptom: Positive for Diarrhea; Negative for Melena or Hematochezia Onset: Days (3) Stool Quality: Positive for Watery Associated Symptoms Associated Symptoms: Negative for Dysuria, Frequency or Hematuria Narrative Narrative: Patient presents with diarrhea and abdominal pain that has been getting worse over the past 3 days. Patient states his pain is diffuse across his entire abdomen. Patient describes it as dull but sharp at times. Patient states it is worse with movement. Patient states it is better when he is able to lay flat. Patient states he has had watery diarrhea for the past 3 days. Patient denies any melena or hematochezia. Patient states he did have some nausea and vomiting when it first started. Patient states this has resolved. Patient denies any hematemesis or coffee-ground emesis. Patient denies any dysuria, frequency, or hematuria. [facility] Medical History Hx of sigmoidoscopy Wears glasses Anxiety Marijuana use Alcohol use Arthritis Dietary restriction Gastric reflux Non-smoker History of irregular heartbeat History of echocardiogram History of stress test Cardiology follow-up encounter Dizziness Epigastric pain Osteoarthritis IBS (irritable bowel syndrome) HTN (hypertension) Sciatica Essential (primary) hypertension Insomnia Chronic low back pain Anxiety and depression Hyperlipidemia Dilated aortic root Non-sustained ventricular tachycardia Home Medications ?Medication ?Instructions ?Recorded ?Last Taken ?Type multivitamin 1 tab PO DAILY 12/09/20 12/05/24 History alprazolam 0.25 mg tablet 0.25 mg PO BID PRN anxiety 12/13/20 Unknown History fluticasone propionate 50 1 spray intranasal DAILY PRN 12/13/20 Unknown History mcg/actuation nasal allergy symptoms spray,suspension (Flonase Allergy Relief) diltiazem HCl 120 mg 60 mg PO BID 10/07/24 12/06/24 07:00 History capsule,extended release 24 hr pantoprazole 20 mg tablet,delayed 20 mg PO QDAY 10/07/24 12/05/24 History release tadalafil 5 mg tablet 5 mg PO QDAY 10/07/24 Unknown History zolpidem 10 mg tablet 10 mg PO QHS 10/07/24 12/06/24 History Allergy/AdvReac Type Severity Reaction Status Date / Time Sulfa (Sulfonamide Allergy hives Verified 07/31/25 14:43 Antibiotics) clarithromycin (From Biaxin) AdvReac diarrhea Verified 07/31/25 14:43 Family History Father Cancer throat Mother Hypertension Arthritis Grandfather Alcoholism Myocardial infarction Surgical History History of discectomy History of vasectomy Social History Smoking Status: Never smoker alcohol intake: current alcohol intake frequency: 3 or more drinks per day Alcohol type: hard liquor substance use type: marijuana ROS ROS ED Constitutional Constitutional ED: Reports fever(s); Denies chills Eyes Eyes: Denies blurry vision or change in vision ENT ENT ED: Denies rhinorrhea or sore throat Cardiovascular Cardiovascular: Denies chest pain or palpitations Respiratory/Chest Respiratory/Chest: Denies cough or dyspnea Gastrointestinal Gastrointestinal: Reports abdominal pain, diarrhea, nausea and vomiting; Denies melena Genitourinary Genitourinary ED: Denies dysuria or hematuria Musculoskeletal Musculoskeletal: Denies back pain or neck pain Integumentary Denies abscess or rash Neurologic Neurologic: Denies headache(s) or weakness Allergic/Immunologic Allergic/Immunologic ED: Denies mouth swelling or urticaria EXAM Physical Exam Const Vital Signs: 07/31/25 14:43 07/31/25 16:43 07/31/25 18:00 Temperature 98 F Temperature Source Oral Pulse Rate 87 77 70 Respiratory Rate 14 16 18 Blood Pressure 141/85 H 141/77 H 154/76 H Blood Pressure Mean 103 98 102 Pulse Ox 98 100 97 Oxygen Delivery Method Room Air Room Air Positive well nourished and well developed General Appearance ED: well developed and NAD HEENT Reports moist mucous membranes normocephalic and atraumatic Neck supple and no JVD Resp normal respiratory effort and clear to auscultation bilaterally Cardio regular rate and regular rhythm GI non-distended Palpation: soft and tender epigastric, RLQ and RUQ; Negative for guarding or rebound tenderness present Neuro CN's II-XII intact bilaterally, moves all extremities and no sensory deficits noted Sensorium / Orientation: alert Motor Exam: strength 5/5 throughout Psych mental status grossly normal and thought process normal MDM MDM MDM Narrative Medical decision making narrative: Differential diagnosis includes bowel obstruction, perforation, pancreatitis, colitis, diverticulitis, electrolyte abnormality, dehydration, viral illness, and anxiety. CBC will be obtained to assess for leukocytosis or anemia. Comprehensive metabolic profile will be obtained to assess for hepatic function, renal function, and electrolyte abnormality. Lipase will be obtained to assess for pancreatitis. Urinalysis will be obtained to assess for urinary tract infection and hematuria. CT scan of the abdomen pelvis will be obtained to assess for bowel obstruction, perforation, diverticulitis, colitis, pancreatitis. Stool specimen was ordered for enteric pathogens and C. difficile. History & Record Review Additional record(s) reviewed:: Prior outpatient record and Prior labs Lab Data Attestation: I reviewed the patient's lab results. Lab results narrative: CBC was reviewed and was within normal limits. Comprehensive metabolic profile was reviewed. Creatinine was slightly elevated at 1.28. The remainder is within normal limits. Lipase was reviewed and was normal at 44. Urinalysis was reviewed. There is no evidence of urinary tract infection or hematuria. Labs: Laboratory Results - last 24 hr 07/31/25 07/31/25 14:50 16:06 WBC 5.9 RBC 5.22 Hgb 15.4 Hct 44.3 MCV 84.9 MCH 29.5 MCHC 34.8 RDW Std Deviation 39.8 RDW Coeff of Yariel 12.9 Plt Count 219 MPV 9.3 Immature Gran % (Auto) 0.200 Neut % (Auto) 69.8 Lymph % (Auto) 17.5 L [place] % (Auto) 11.2 H Eos % (Auto) 1.0 Baso % (Auto) 0.3 Absolute Neuts (auto) 4.1 Absolute Lymphs (auto) 1.03 Nucleated RBC % 0 Sodium 140 Potassium 3.8 Chloride 103 Carbon Dioxide 29.2 H Anion Gap 8 BUN 15 Creatinine 1.28 H Estim Creat Clear Calc 66.89 Est GFR (MDRD) Non-Af 62 BUN/Creatinine Ratio 11.4 Glucose 111 H Calcium 9.6 Total Bilirubin 0.59 AST 23 ALT 32 Alkaline Phosphatase 54 Total Protein 7.0 Albumin 3.9 Globulin 3.1 Albumin/Globulin Ratio 1.3 Lipase 44 Urine Color Straw Urine Clarity Clear Urine pH 6.0 Ur Specific [place] 1.010 Urine Protein Negative Urine Glucose (UA) Normal Urine Ketones Negative Urine Occult Blood 50 H Urine Nitrite Negative Urine Bilirubin Negative Urine Urobilinogen Normal Ur Leukocyte Esterase Negative Urine RBC 0-5 SEEN Urine WBC 0-5 SEEN Ur Squamous Epith Cells 0 SEEN Urine Bacteria 0 SEEN Urine Mucus 0 SEEN Radiography Diagnostic Testing: Clinical Impression(s) from Imaging Studies Abdomen/Pelvis CT 07/31/25 15:56 IMPRESSION: No bowel obstruction. No obstructive uropathy or urolithiasis. Although the appendix appears unremarkable in size, there are mild periappendiceal inflammatory changes, which may represent early or mild diverticulitis. Reading Location: [facility] CT scan of the abdomen and pelvis was obtained. There is no evidence of bowel obstruction. There is no free air or free fluid. The appendix is normal in size but there is some mild periappendiceal inflammatory changes which may represent early or mild appendicitis. This was interpreted by the radiologist. I also independently reviewed the images and did not see any evidence of bowel obstruction or perforation. There is no free air or free fluid. Management Discussion w/another healthcare provider: [employer] Treatment and Re-Evaluation :: Patient was given IV fluids, morphine, and Zofran. Patient was feeling somewhat better on reevaluation. Patient was foundry tender in the right lower abdomen on reevaluation. Patient admits to decreased appetite on reevaluation. Patient was given a dose of Zosyn. Case was discussed with Dr. Escamilla. He will admit the patient for observation. Patient understood and was agreeable with the plan. All questions were answered. Discharge Plan Dx/Rx/DC Orders Clinical Impression: Abdominal pain, Diarrhea, Essential (primary) hypertension Disposition Disposition: Acute Care Hospital [facility]
--- NOTE | 2025-07-31 15:56 | CT_ITS ---
PROCEDURE: ABDOMEN/PELVIS W IV CONT ONLY 07/31/2025 REASON FOR EXAM: ABDOMINAL PAIN TECHNIQUE: Procedure Code: [id number] Modality: CT Procedure: ABDOMEN/PELVIS W IV CONT ONLY Coronal and Sagittal reconstruction series were provided. One or more dose reduction techniques were used (e.g., Automated exposure control, adjustment of the mA and/or kV according to patient size, use of iterative reconstruction technique. RADIATION DOSE SUMMARY: DLP: 1106.01 mGycm FINDINGS: The lung bases are unremarkable. The heart size is unremarkable. There are multiple cysts in the liver. The liver contour is unremarkable. The gallbladder, pancreas, and spleen are unremarkable. Both adrenal glands are unremarkable. There are cysts in the right kidney. There is no hydronephrosis. No stones are identified. The bladder is unremarkable. The prostate is unremarkable. There is no bowel obstruction. The appendix contains air and fluid. There are mild periappendiceal inflammatory changes. There is no hiatal hernia. There is aortic atherosclerosis. There is no lymphadenopathy, or pneumoperitoneum. The osseous structures are intact. CT/Abdomen/Pelvis W IV Cont ONLY IMPRESSION: No bowel obstruction. No obstructive uropathy or urolithiasis. Although the appendix appears unremarkable in size, there are mild periappendic eal inflammatory changes, which may represent early or mild diverticulitis. Reading Location: [id number]
--- OUTSIDE RECORDS SUMMARY | 2025-07-31 16:02 | XMS RPT_ITS | CCD ---
Author Organization [facility] Inform ion Partnership [facility] Care Team Providers Care Display And Banner Designer Name Role Phone PROVIDER, UNKNOWN Unavailable Unavailable Mercedes Gold Unavailable Unavailable Cong DIAMOND SORTER, DIAMOND SORTER-C Jorge Alberto Arauz Primary Care Pr ovider Fish DIAMOND SORTER, DIAMOND SORTER-C Jessica Referring Provider Fish DIAMOND SORTER, DIAMOND SORTER-C Jessica Other Provider Dr. Ran Boss Attending Provider Cong DIAMOND SORTER-CJorge Alberto Primary Care Provi denise Cong [place]-CJorge Alberto Attending Provider Cong [place]-CJorge Alberto Referring Provider Sammy [place]-CKirsten Attending Provider Sammy [place]-CKirsten Referring Provider Friend Dr. Tae ACKERMAN Attending Provider Friend Dr. Tae ACKERMAN Other Provider [phone] JORGE ALBERTO SELF APRN, CNP Primary Care Phys ician JORGE ALBERTO SELF APRN, CNP Attending U JORGE ALBERTO Otoole APRN, CNP Primary Care U tom Gar DIAMOND SORTER-CJorge Alberto Primary Care Physi neeta Cong DIAMOND SORTER-CJorge Alberto Referring Provider Sammy [place]-CKirsten Attending Physician Sammy [place]-CKirsten Referring Provider aSmmy, Kirsten Attending Unavailable Cong DIAMOND SORTER, Jorge Alberto Davonte Primary Care Unav ailable Sammy, Kirsten Referring Unavailable Cong DIAMOND SORTER, Jorge Alberto Arauz Primary Care Unav ailable Cong DIAMOND SORTER, Jorge Alberto Arauz Attending Unav ailable Cong DIAMOND SORTER, Jorge Alberto Arauz Referring Unav ailable Sammy, Kirsten Referring Unavailable [place] DIAMOND SORTER, Jorge Alberto Arauz Primary Care Unav ailable Sammy, Kirsten Attending Unavailable Sammy, Kirsten Attending Unavailable [place] DIAMOND SORTER, Jorge Alberto Pritchardnis Primary Care Unav ailable Sammy, Kirsten Referring Unavailable Sammy, Kirsten Attending Unavailable [place] DIAMOND SORTER, Jorge Alberto Arauz Primary Care Unav ailable Sammy, Kirsten Referring Unavailable [place] DIAMOND SORTER, Jorge Alberto Arauz Primary Care Unav ailable Friend, Tae Attending Unavailable [place] DIAMOND SORTER, Jorge Alberto Arauz Referring Unav ailable [place] DIAMOND SORTER, Jorge Alberto Arauz Primary Care Unav ailable Friend, Tae Consulting Unavailable Friend, Tae Attending Unavailable Cong DIAMOND SORTER, Jorge Alberto Arauz Referring Unav ailable Cong DIAMOND SORTER, Jorge Alberto Arauz Primary Care Unav ailable Sammy, Kirsten Attending Unavailable [place] DIAMOND SORTER, Jorge Alberto Arauz Referring Unav ailable [place] DIAMOND SORTER, Jorge Alberto Arauz Primary Care Unav ailable Sammy, Kirsten Attending Unavailable Cong DIAMOND SORTER, Jorge Alberto Arauz Referring Unav ailable [place] DIAMOND SORTER, Jorge Alberto Arauz Primary Care Unav ailable Sammy, Kirsten Attending Unavailable Cong DIAMOND SORTER, Jorge Alberto Arauz Referring Unav ailable Allergies Allergy Classification Reported Allergen(s) Allergy Type Date of Onset Reaction(s) Facility (9 sources) Clarithromycin; Translations: [clarithromycin] Drug Allergy 1 Diarrhea (finding) [facility] (9 sources) Sulfonamides (Antibiotic); Translations: [Sulfa (Sulfonamide Antibiotics)] Allergy to substance 1 hives [facility] (1 source) Sulfonamide; Translations: [sulfa drugs] Drug allergy Weal (disorder) [facility] (1 source) Clarithromycin Drug Allergy 5 [facility] Repository Medications Current Medications Medication Drug Class(es) Dates Sig (Normalized) Sig (Original) Tylenol (1 source) Start: 06-28-2024 Tylenol Oral, 0 Refill(s) Start Date: 06/28/24 Status: Ordered Repeat number: 1 ALPRAZolam 0.25 mg oral tablet (17 sources) Benzodiazepine Start: 12-09-2020 End: 05-25-2025 ALPRAZolam 0.25 mg oral tablet Dose : 0.25 mg = 1 tab(s), Oral, BID, Fill Date: 02/24/2025, # 60 tab(s), 2 Refill(s), Pharmacy: [id number], Anxiety and depression Medication management contract signed (02/2021), 185, cm, 02/24/25 14:58:00 EDT, Height, 93.1, kg, 02/24/25 14:58:00 EDT, Dosing Weight Start Date: 02/24/25 Stop Date: 05/25/25 Status: Ordered Quantity: 60.0 Unit: tab(s) Repeat number: 3 Indications: Anxiety disorder, unspecified; Encounter for other administrative examinations; 24 hr dilTIAZem hydrochloride 120 mg extended release oral capsule (14 sources) Calcium Channel Wyatt Start: 10-07-2024 take 1 capsule by mouth twice daily Start: 08-11-2024 Cardizem 60 mg oral tablet Dose : 60 mg = 1 tab(s), Oral, BID, # 180 tab(s), 3 Refill(s), Pharmacy: [facility], 175.3, cm, 08/11/24 15:47:00 EST, Height, kg, 08/11/24 15:47:00 EST, Dosing Weight Start Date: 08/11/24 Status: Ordered Quantity: 180.0 Unit: tab(s) Repeat number: 4 Start: 12-13-2020 End: 10-07-2024 take 1 capsule by mouth every twenty-four hours at bedtime Diltiazem Hcl 120 mg capsule,extended release 24hr Discontinued 120 mg PO AT BEDTIME December 13, 2020 12:00am October 07, 2024 12:55pm Start: 12-13-2020 take 120 mg by mouth at bedtim e Diltiazem Hcl Active 120 MG PO AT BEDTIME December 13, 2020 2:36pm escitalopram 20 mg oral tablet (9 sources) Serotonin Reuptake Inhibitor Start: 12-09-2020 End: 05-25-2025 Lexapro 20 mg oral tablet Dose : 20 mg = 1 tab(s), Oral, qDay, # 30 tab(s), 2 Refill(s), Pharmacy: [facility], CAPRI, 185, cm, 02/24/25 14:58:00 EDT, Height, kg, 02/24/25 14:58:00 EDT, Dosing Weight Start Date: 02/24/25 Stop Date: 05/25/25 Status: Ordered Quantity: 30.0 Unit: tab(s) Repeat number: 3 Indications: Anxiety disorder, unspecified; fluticasone propionate 0.05 mg/actuat metered dose nasal spray (17 sources) Corticosteroid Start: 12-09-2020 End: 12-13-2020 take 50 ug nasal route once daily as needed Start: 12-09-2020 End: 12-13-2020 take 1 spray(s) nasal route once daily Fluticasone Propionate (Flonase Allergy Relief) 50 mcg/actuation spray,suspension Active 1 SPRAY INTRANASAL DAILY December 13, 2020 1:35pm administer into each nostril Start: 03-11-2019 take 1 dose nasal ro patricia once daily in the morning Flonase 50 mcg/inh nasal spray Dose = 1 spray(s), Nostril, each, qAM, 0 Refill(s) Start Date: 03/11/19 Status: Ordered Repeat number: 1 meloxicam 15 mg oral tablet (6 sources) Nonsteroidal Anti-inflammatory Drug Start: 10-07-2024 End: 05-25-2025 Mobic 15 mg oral tablet Dose : 15 mg = 1 tab(s), Oral, qDay, # 30 tab(s), 2 Refill(s), Pharmacy: [id number], OA (osteoarthritis), 185, cm, 02/24/25 14:58:00 EDT, Height, kg, 02/24/25 14:58:00 EDT, Dosing Weight Start Date: 02/24/25 Stop Date: 05/25/25 Status: Ordered Quantity: 30.0 Unit: tab(s) Repeat number: 3 Indications: Unspecified osteoarthritis, unspecified site; Multivitamin preparation (4 sources) Start: 12-09-2020 take 1 tablet by mouth once daily Multivitamin Active 1 TABLET PO DAILY December 09, 2020 2:00pm Start: 12-09-2020 take 1 tablet by khadijah th once daily Multivitamin Active 1 TABLET PO DAILY December 08, 2020 11:00pm Start: 03-11-2019 take 1 tablet by khadijah th once daily Multivitamin Dose = 1 tab(s), Oral, Daily, 0 Refill(s) Start Date: 03/11/19 Status: Ordered Repeat number: 1 Multivitamin tablet (5 sources) Start: 12-09-2020 Start: 12-09-2020 Multivitamin t ablet Active 1 {tbl} PO DAILY December 09, 2020 12:00am pantoprazole 20 mg delayed release oral tablet (6 sources) Proton Pump Inhibitor Start: 10-07-2024 End: 05-25-2025 pantoprazole 20 mg oral enteric coated tablet Dose : 20 mg = 1 tab(s), Oral, qDay, # 30 tab(s), 2 Refill(s), Pharmacy: [facility], GERD (gastroesophageal reflux disease), 185, cm, 02/24/25 14:58:00 EDT, Height, kg, 02/24/25 14:58:00 EDT, Dosing Weight Start Date: 02/24/25 Stop Date: 05/25/25 Status: Ordered Quantity: 30.0 Unit: tab(s) Repeat number: 3 Indications: Gastro-esophageal reflux disease without esophagitis; tadalafil 5 mg oral tablet (6 sources) Phosphodiesterase 5 Inhibitor Start: 10-07-2024 tadalafil 5 mg oral tablet Dose : 5 mg = 1 tab(s), Oral, qDay, # 30 tab(s), 2 Refill(s), Pharmacy: [id number], ED (erectile dysfunction), 185, cm, 02/24/25 14:58:00 EDT, Height, kg, 02/24/25 14:58:00 EDT, Dosing Weight Start Date: 02/24/25 Status: Ordered Quantity: 30.0 Unit: tab(s) Repeat number: 3 Indications: Male erectile dysfunction, unspecified; zolpidem tartrate 10 mg oral tablet (14 sources) gamma-Aminobutyric Acid-ergic Agonist Start: 12-09-2020 End: 05-25-2025 zolpidem 10 mg oral tablet Dose : 10 mg = 1 tab(s), Oral, qHS, Fill Date: 02/24/2025, # 30 tab(s), 2 Refill(s), Pharmacy: [facility], Insomnia Medication management contract signed (02/2021), 185, cm, 02/24/25 14:58:00 EDT, Height, 93.1, kg, 02/24/25 14:58:00 EDT, Dosing Weight Start Date: 02/24/25 Stop Date: 05/25/25 Status: Ordered Quantity: 30.0 Unit: tab(s) Repeat number: 3 Indications: Encounter for other administrative examinations; Insomnia, unspecified; Completed/Discontinued Medications Medication Drug Class(es) Dates Sig (Normalized) Sig (Original) Albuterol 90 mcg/actuation aerosol (5 sources) Start: 10-07-2024 End: 10-07-2024 Albuterol 90 mcg/actuation aerosol Discontinued ug INHALATION as needed October 07, 2024 1:00am October 07, 2024 3:07pm budesonide 3 mg delayed release oral capsule (2 sources) Corticosteroid Start: 12-30-2024 End: 05-16-2025 Budesonide 3 mg capsule,delayed,e xtend.release Discontinued 3 mg PO EVERY MORNING 0 December 30, 2024 12:00am May 16, 2025 2:57pm Take 9mg PO every am x8 weeks, then 6mg every am x2 weeks, then 3mg every am x2 weeks and then discontinue colesevelam hydrochloride 625 mg oral tablet (6 sources) Bile Acid Sequestrant Start: 10-07-2024 End: 12-30-2024 take 3 tablets by mouth twice daily Colesevelam 625 mg tablet Discontinued 1875 mg PO TWICE A DAY October 07, 2024 1:00am December 30, 2024 8:29am Start: 08-26-2024 End: 11-24-2024 diclofenac sodium 75 mg delayed release oral tablet (8 sources) Nonsteroidal Anti-inflammatory Drug Start: 12-09-2020 End: 12-13-2020 take 1 tablet by mouth twice daily Diclofenac Sodium 75 mg tablet,delayed release (DR/EC) Discontinued 75 mg PO TWICE A DAY December 09, 2020 12:00am December 13, 2020 2:35pm hydroCHLOROthiazide 12.5 mg / losartan potassium 100 mg oral tablet (8 sources) Thiazide Diuretic, Angiotensin 2 Receptor Wyatt Start: 12-09-2020 End: 10-07-2024 Losartan-Hydrochl orothiazide 100-12.5 mg tablet Discontinued 1 {tbl} PO DAILY December 09, 2020 12:00am October 07, 2024 12:55pm Start: 12-09-2020 take 1 tablet by khadijah th once daily Losartan-Hydrochlorothiazide Active 1 TA BLET PO DAILY December 09, 2020 2:00pm 24 hr metoprolol succinate 25 mg extended release oral tablet (8 sources) beta-Adrenergic Wyatt Start: 12-09-2020 End: 12-13-2020 take 1 tablet by mouth once daily Metoprolol Succinate 25 mg tablet extended release 24 hr Discontinued 25 mg PO DAILY December 09, 2020 12:00am December 13, 2020 2:36pm Problems Active Problems Problem Classification Problem Date Documented Da te Episodic/Chronic Anxiety disorders (1 source) Mixed anxiety and depressive disorder 05-31-2021 Chronic Aortic; peripheral; and visceral artery aneurysms (9 sources) Aortic root dilatation; Translations: [Thoracic aortic ectasia] 11-20-2020 Chronic Comment on above: 4.7 cm per echo 11/15 ECHOCARDIOGRAM [facility] R[facility] (11/2020): 1. Left ventricular systolic function is considered normal. 2. Ejection fraction is 55% 3. Mild (1+) eccentric mitral valve insufficiency 4. Mild to moderately dilated aortic root 5. Trivial eccentric aortic valve insufficiency Cardiac dysrhythmias (8 sources) Nonsustained ventricular tachycardia ; Translations: [Ventricular tachycardia] 11-20-2020 Chronic Comment on above: per holter monitor 6 beats 11/15/2020 Disorders of lipid metabolism (8 sources) Hyperlipidemia; Translations: [Hyperlipidemia, unspecified] 11-20-2020 Chronic Esophageal disorders (1 source) Gastroesophageal reflux disease 04-22-2024 Chronic Essential hypertension (9 sources) Essential hypertension; Translations: [Essential (primary) hypertension] 12-09-2020 Chronic Comment on above: 11/15/2020 Echocardi ogram : SUMMARY: 1. Left ventricular systolic function is considered normal. 2. Ejection fraction is 55% 3. Mild (1+) eccentric mitral valve insufficiency 4. Mild to moderately dilated aortic root 5. Trivial eccentric aortic valve insufficiency 01/10/2022 CT Coronary Angiography: IMPRESSION: 1. Coronary calcium score of less than 1. 2. Coronary anatomy defined with no significant arthrosclerotic plaquing. HTN (Hypertension) Heart valve disorders (1 source) Aortic valve regurgitation 11-17-2020 Chronic Immunizations and screening for infectious disease (6 sources) Decreased immunoglobulin; Translations: [Other specified abnormal immunological findings in serum] 10-13-2024 Episodic Noninfectious gastroenteritis (4 sources) Lymphocytic colitis; Translations: [Lymphocytic colitis] Onset: 5 12-30-2024 Chronic Nonspecific chest pain (8 sources) Chest pain; Translations: [Chest pain, unspecified] 11-20-2020 Episodic Osteoarthritis (1 source) Osteoarthritis 02-27-2023 Chronic Other circulatory disease (1 source) H/O: heart disorder 11-17-2020 Episodic Other gastrointestinal disorders (9 sources) Irritable bowel syndrome with diarrhea; Translations: [Irritable bowel syndrome with diarrhea] 10-07-2024 Chronic Other gastrointestinal disorders (6 sources) Irritable bowel syndrome; Translations: [Irritable bowel syndrome without diarrhea] 10-07-2024 Chronic Other gastrointestinal disorders (3 sources) Celiac disease; Translations: [Celiac disease] 12-30-2024 Chronic Other gastrointestinal disorders (1 source) Celiac disease; Translations: [Celiac disease] Onset: Chronic Other gastrointestinal disorders (1 source) Irritable bowel syndrome with diarrhea; Translations: [Irritable bowel syndrome with diarrhea] Onset: Chronic Other gastrointestinal disorders (11 sources) Diarrhea; Translations: [Diarrhea, unspecified] 10-13-2024 Episodic Other gastrointestinal disorders (10 sources) Urgent desire for stool; Translations: [Fecal urgency] 10-07-2024 Episodic Other gastrointestinal disorders (2 sources) Diarrhea, unspecified; Translations: [Diarrhea, unspecified] Onset: Episodic Other male genital disorders (1 source) Impotence 11-27-2023 Chronic Other nervous system disorders (1 source) 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 Left ventricular systolic function is considered normal. 2. Ejection fraction is 55% 3. Mild (1+) eccentric mitral valve insufficiency 4. Mild to moderately dilated aortic root 5. Trivial eccentric aortic valve insufficiency Residual codes; unclassified (1 source) Hypersomnia 12-18-2021 Chronic Residual codes; unclassified (1 source) H/O Spinal surgery 10-02-2020 Episodic Residual codes; unclassified (1 source) Insomnia 05-30-2023 Episodic Residual codes; unclassified (2 sources) Insomnia, unspecified; Translations: [Insomnia, unspecified] Onset: Episodic Spondylosis; intervertebral disc disorders; other back problems (1 source) Chronic low back pain 10-02-2020 Episodic Unclassified (1 source) Body mass index 20-24 - normal 11-06-2022 Unclassified (1 source) Drug therapy finding 05-30-2023 Comment on above: Medication managemen t contract current Unclassified (1 source) Never used tobacco 11-06-2022 Unclassified (4 sources) Patient encounter status 12-04-2021 Viral infection (8 sources) COVID-19; Translations: [Severe acute respiratory syndrome coronavirus 2 (SARS-CoV-2) detected] 12-09-2020 Episodic Past or Other Problems Problem Classification Problem Date Documented Da te Episodic/Chronic Allergic reactions (2 sources) Dermatitis, unspecified; Translations: [Dermatitis, unspecified] Onset: 07-21-2017 Episodic Noninfectious gastroenteritis (2 sources) Chronic diarrhea of unknown origin ; Translations: [Noninfective gastroenteritis and colitis, unspecified] Onset: 09-20-2024 04-22-2024 Episodic Other gastrointestinal disorders (2 sources) Fecal urgency; Translations: [Fecal urgency] Onset: 11-08-2024 Episodic Results Test Name Value Interpretation Reference Range Facility Vitamin A, Retinolon 025 VIT A, RETINOL 61.5 ug/dL Normal 22.0-69.5 [facility] Comment on above: Result Comment: Refe rence intervals for vitamin A determined from [facility] internal studies. Individuals with vitamin A less than 20 ug/dL are considered vitamin A deficient and those with serum concentrations less than 10 ug/dL are considered severely deficient. This test was developed and its performance characteristics determined by [employer]. It has not been cleared or approved by the Food and Drug Administration. Performed By: #### L 3300.0960, L3400.0920, L3410.2970, L503.0106 #### [facility] [address] [place], [place], [id number] t-Transglutaminase IgGon tTG IGG 13 U/mL Abnormal 0-5 [facility] Comment on above: Result Comment: Nega tive 0 - 5 Weak Positive 6 - 9 Positive >9 Performed at: [address] [id number] Reordering Clerk: Gina Vivar MD, Phone: [phone] Performed at: [address] [id number] Reordering Clerk: Alexys Romo PhD, Phone: [phone] Performed By: #### L 3300.0960, L3400.0920, L3410.2970, L503.0106 #### [facility] [address] [place], [place], [id number] Vitamin D 1,25-Dihydroxyon 1 VIT D 1,25 DIHY 51.3 pg/mL Normal 24.8-81.5 [facility] Comment on above: Result Comment: Perf ormed at: [address] [id number] Reordering Clerk: Gina Vivar MD, Phone: [phone] Performed By: #### L 3300.0960, L3400.0920, L3410.2970, L503.0106 #### [facility] [address] [place], [address] Serum or plasma calcitriol m easurement (mass/volume)Ordered By: Kirsten Christianson on 05-23-2025 1,25-dihydroxyvitamin D3 [Mass/Vol] 51.3 pg/mL 24.8-81.5 [facility] Comment on above: Performed at: [address], [place] [id number] Director: Gina Vivar MD, Phone: [phone] Vitamin B12on 05-23-2025 Cobalamin (Vitamin B12) [Mass/Vol] 476 pg/mL Normal 180-914 [facility] Comment on above: Performed By: #### L 3300.8758, L3400.0556, Z9413.5213, L503.4067 #### [facility] [address] [place], [address] Vitamin B12 ser/plasOrdered By: Kirsten Christianson on 05-23-2025 Cobalamin (Vitamin B12) [Mass/Vol] 476 pg/mL 180-914 [facility] Gastroenterology Visit Repor ton 05-16-2025 Gastroenterology Visit Report [facility] [address] [place] [address] OFFICE VISIT Date of Service: 05/16/25 MR#: [id number] Acct: [id number] Name: DILSHAD PACK Rep #: [id number] : 1960 Provider: GONZALO oates Age/Sex: 65/M Location: [facility] Status: Signed Intake Vital Signs 12/30/24 08:04 05/16/25 15:00 Height 6 ft 2 in 6 ft 2 in Weight: 201 lb 6 oz 208 lb BMI 25.8 26.6 BP 157/71 H 136/72 H Blood Pressure Location Lt brachial Position Sitting Respiration 17 18 Pulse 64 80 Pulse Source Monitor Temp 97.8 F Temp Source Temporal Pulse Oximetry (%) 92 94 Oxygen Delivery Method room air room air Intake Visit Reasons: 4 M FU Chief Complaint: follow-up Radiology Clerk Required: No Accompanied by: Self Is patient in pain?: No Allergies Sulfa (Sulfonamide Antibiotics) Allergy (Verified 12/30/24 07:57) hives clarithromycin (From Biaxin) Adverse Reaction (Verified 12/30/24 07:57) diarrhea Medications ???Medication ???Instructions ???Recorded ???Confirmed ???Type multivitamin 1 tab PO DAILY 12/09/20 05/16/25 H istory alprazolam 0.25 mg tablet 0.25 mg PO BID PRN anxiety 2 1 05/16/25 History fluticasone propionate 50 1 spray intranasal DAILY PRN 12/1305/16/25 History mcg/actuation nasal allergy symptoms spray,suspension (Flonase Allergy Relief) diltiazem HCl 120 mg 60 mg PO BID 10/07/24 05/16/25 His tory capsule,extended release 24 hr pantoprazole 20 mg tablet,delayed 20 mg PO QDAY 10/07/24 05/16/25 H istory release tadalafil 5 mg tablet 5 mg PO QDAY 10/07/24 05/16/25 His tory zolpidem 10 mg tablet 10 mg PO QHS 10/07/24 05/16/25 His tory Have you fallen in the past year?: No PFSH Medical History Hx of sigmoidoscopy Wears glasses Anxiety Marijuana use Alcohol use Arthritis Dietary restriction Gastric reflux Non-smoker History of irregular heartbeat History of echocardiogram History of stress test Cardiology follow-up encounter Dizziness Epigastric pain Osteoarthritis IBS (irritable bowel syndrome) HTN (hypertension) Sciatica Essential (primary) hypertension Insomnia Chronic low back pain Anxiety and depression Hyperlipidemia Dilated aortic root Non-sustained ventricular tachycardia Surgical History History of discectomy History of vasectomy Family History Father Cancer throat Mother Hypertension Arthritis Grandfather Alcoholism Myocardial infarction Social History Smoking Status: Never smoker alcohol intake: current alcohol intake frequency: 3 or more drinks per day Alcohol type: hard liquor substance use type: marijuana HPI HPI Chief Complaint: follow-up Details: OV 01/03/2025 64-year-old male presents for follow-up of diarrhea. Labs revealed a low total IgA and negative TTG IgA. TTG IgG was performed due to his low total IgA, possibly rendering TTG IgA falsely normal. The results of his TTG IgG are elevated to 21 which suggests his diarrhea is possibly a component of celiac disease. He noted an improvement in diarrhea with a GFD. Sigmoidoscopy was performed 12/07/2024 and revealed slightly increased intraepithelial lymphocytes, suggesting a low-grade lymphocytic colitis. The patient's positive TTG IgG, in conjunction with increased intraepithelial lymphocytes in the colon on sigmoidoscopy, suggest a potential immune mediated process, possibly gluten sensitivity, contributing to his diarrhea. Ball colonic intraepithelial lymphocytes are not specific for celiac disease, there presents, when paired with positive TTG IgG raises the possibility of a gluten related or autoimmune driven colitis. We have discussed EGD as gold standard diagnostic for celiac disease. However, he has noted a significant improvement in stools with GFD. We discussed he would need to resume gluten daily for 4-6 weeks and then proceed with duodenal biopsy, being that these findings would not change the course of treatment we have elected to defer diagnostic EGD at this time. However, he will taper pantoprazole and if he has recurrent HB symptoms we will proceed with EGD per ACG guidelines. Although these findings are non-specific individually, their co-occurrence suggests an underlying immune activation, possibly triggered by gluten. The TTG IgG reflects a systemic immune response, while the increased colonic IELs point to local mucosal immune activation. Together, these findings support a shared pathophysiologic process that may explain the patient???s diarrhea. The patient will initiate a 12-week tapering course of (more content not included)... Normal [facility] LABORATORYOrdered By: Brittany Coto on 02-24-2025 Amphetamines Screen Ql (U) Negative *NA* (02/24/25 4:15 PM) Invalid Interpretation Code Negative AO ADM SS Barbiturates Screen Ql (U) Negative *NA* (02/24/25 4:15 PM) Invalid Interpretation Code Negative AO ADM SS Benzodiazepines Ql (U) Positive *ABN* (02/24/25 4:15 PM) Invalid Interpretation Code Negative AO ADM SS Benzoylecgonine Screen Ql (U) Negative *NA* (02/24/25 4:15 PM) Invalid Interpretation Code Negative AO ADM SS Cannabinoids Screen Ql (U) Negative *NA* (02/24/25 4:15 PM) Invalid Interpretation Code Negative AO ADM SS Methadone Screen Ql (U) Negative *NA* (02/24/25 4:15 PM) Invalid Interpretation Code Negative AO ADM SS Opiates Screen Ql (U) Negative *NA* (02/24/25 4:15 PM) Invalid Interpretation Code Negative AO ADM SS Phencyclidine Ql (U) Negative *NA* (02/24/25 4:15 PM) Invalid Interpretation Code Negative AO ADM SS Urine Drugs screened: See Below 1 (02/24/25 4:15 PM) Normal AO Chemistry S Comment on above: Interpretive Data: T his drug screen is a presumptive screening only. No confirmation will be performed unless requested. Drugs screened include: Threshold Amphetamines/Methamphetamines 1,000 ng/mL Barbiturates 200 ng/mL Benzodiazepine metabolites 200 ng/mL Cannabinoids (THC metabolites) 50 ng/mL Cocaine 300 ng/mL Opiates 300 ng/mL Methadone 300 ng/mL Phencyclidine (PCP) 25 ng/mL Testing has been performed FOR MEDICAL PURPOSES ONLY. Glenda 02-24-2025 Amphetamine (u) Negative Normal Negative [facility] Comment on above: Performed By: #### U DRUG #### [address] [address] Barbiturate (u) Negative Normal Negative [facility] Comment on above: Performed By: #### U DRUG #### [address] [address] Benzodiazepine (u) Positive Abnormal Negative [facility] Comment on above: Performed By: #### U DRUG #### [address] [address] Cannabinoid (u) Negative Normal Negative [facility] Comment on above: Performed By: #### U DRUG #### [address] [address] Cocaine Ql (U) Negative Normal Negative [facility] Comment on above: Performed By: #### U DRUG #### [address] [address] Methadone Ql (U) Negative Normal Negative [facility] Comment on above: Performed By: #### U DRUG #### [address] [address] Opiate (u) Negative Normal Negative [facility] Comment on above: Performed By: #### U DRUG #### [address] [place] [address] PCP (u) Negative Normal Negative [facility] Comment on above: Performed By: #### U DRUG #### [address] [address] Urine Drugs screened: See Below Normal [facility] Comment on above: Result Comment: This drug screen is a presumptive screening only. No confirmation will be performed unless requested. Drugs screened include: Threshold Amphetamines/Methamphetamines 1,000 ng/mL Barbiturates 200 ng/mL Benzodiazepine metabolites 200 ng/mL Cannabinoids (THC metabolites) 50 ng/mL Cocaine 300 ng/mL Opiates 300 ng/mL Methadone 300 ng/mL Phencyclidine (PCP) 25 ng/mL Testing has been performed FOR MEDICAL PURPOSES ONLY. Performed By: #### U DRUG #### [address] [address] Gastroenterology Visit Repor ton 12-30-2024 Gastroenterology Visit Report [facility] Gastroenterology [address] [place] [address] OFFICE VISIT Date of Service: 12/30/24 MR#: [id number] Acct: [id number] Name: DILSHAD PACK Rep #: [id number] : 1960 Provider: GONZALO oates Age/Sex: 64/M [place] [facility] [place]: Signed Intake Vital Signs 10/07/24 14:09 12/07/24 05:52 12/30/24 08:04 Height 6 ft 2 in 6 ft 2 in 6 ft 2 in Weight: 201 lb 6 oz BMI 25.8 BP 157/71 H Blood Pressure Location Lt brachial Position Sitting Respiration 17 Pulse 64 Pulse Source Monitor Pulse Oximetry (%) 92 Oxygen Delivery Method room air Intake Visit Reasons: Test Result Chief Complaint: follow-up Allergies Sulfa (Sulfonamide Antibiotics) Allergy (Verified 12/30/24 07:57) hives clarithromycin (From Biaxin) Adverse Reaction (Verified 12/30/24 07:57) diarrhea Medications ???Medication ???Instructions ???Recorded ???Confirmed ???Type escitalopram oxalate 20 mg tablet 20 mg PO DAILY 12/09/20 12/30/24 History multivitamin 1 tab PO DAILY 12/09/20 12/30/24 H istory alprazolam 0.25 mg tablet 0.25 mg PO BID PRN anxiety 2 1 12/30/24 History fluticasone propionate 50 1 spray intranasal DAILY PRN 12/1312/30/24 History mcg/actuation nasal allergy symptoms spray,suspension (Flonase Allergy Relief) diltiazem HCl 120 mg 60 mg PO BID 10/07/24 12/30/24 His tory capsule,extended release 24 hr meloxicam 15 mg tablet 15 mg PO QDAY 10/07/24 12/30/24 Hi story pantoprazole 20 mg tablet,delayed 20 mg PO QDAY 10/07/24 12/30/24 H istory release tadalafil 5 mg tablet 5 mg PO QDAY 10/07/24 12/30/24 His tory zolpidem 10 mg tablet 10 mg PO QHS 10/07/24 12/30/24 His tory budesonide 3 mg 3 mg PO QAM #210 ea 12/30/2412/30 Rx capsule,delayed,extended release Nurse's Note: Patient stated everything has been going well, he has had some gluten this past week and it didn't seem to bother him. Test results. [facility] Medical History (Updated 12/30/24 @ 08:30 by Kirsten Christianson NP-C) Hx of sigmoidoscopy Wears glasses Anxiety Marijuana use Alcohol use Arthritis Dietary restriction Gastric reflux Non-smoker History of irregular heartbeat History of echocardiogram History of stress test Cardiology follow-up encounter Dizziness Epigastric pain Osteoarthritis IBS (irritable bowel syndrome) HTN (hypertension) Sciatica Essential (primary) hypertension Insomnia Chronic low back pain Anxiety and depression Hyperlipidemia Dilated aortic root Non-sustained ventricular tachycardia Surgical History History of discectomy History of vasectomy Family History Father Cancer throat Mother Hypertension Arthritis Grandfather Alcoholism Myocardial infarction Social History Smoking Status: Never smoker alcohol intake: current alcohol intake frequency: 3 or more drinks per day Alcohol type: hard liquor substance use type: marijuana HPI HPI Chief Complaint: follow-up Details: DILSHAD SIRENA, is a 64 M who presents to the office today for OV 10/07/2024 64y/o male presents for consultation with complaints of diarrhea. He complains of sudden onset diarrhea which began February 2024 after dining out at [employer]. Diarrhea was explosive and experiencing episodes of fecal incontinence. Stool negative for C. Diff 09/03/2024. Giardia, stool culture, lactoferrin negative April 2024. Screening colonoscopy was unremarkable June 2024 ([facility]). Despite starting Colesevelam 3 tabs BID he is continuing to experience frequent stools every morning and after meals and drinks. His weight is stable and denies any bleeding or pain. He denies any new medications or dietary changes. I have ordered calprotectin, celiac serologies and scheduled him for a Sigmoidoscopy to r/o microscopic colitis. In the interim I will treat him with Xifaxan TID for IBS-D. Patient Instructions: Sigmoidoscopy to r/o microscopic colitis Celiac serologies Calprotectin Xifaxan to [facility] Sigmoidoscopy 12/07/2024 - slightly increased intraepithelial lymphocytes, Negative for acute inflammation, granulomas, and crypt distortion. - Congested mucosa in the recto-sigmoid colon and in the sigmoid colon. Biopsied. TTG IgA 10/07/2024 negative Total IgA 10/07/2024 LOW TTG IgG ELEVATED 21 - TTG IgG was performed due to his total IgA being low, possibly rendering TTG IgA falsely normal. The results of his TTG IgG are elevated to 21 which suggests his diarrhea is likely secondary to celiac disease. I recommend he start a gluten-free diet. If diarrhea resolves on a gluten-free diet he can cancel colonoscopy which is schedule (more content not included)... Normal [facility] Flex Sigmoidoscopy Reporton 12-07-2024 Flex Sigmoidoscopy Report [facility] Medical Records Department [address] [place] [address] Flex Sigmoidoscopy Report MR#: [id number] Acct: [id number] Name: DILSHAD PACK Rep #: [id number] : 1960 64 From: Tae Friend DO PCP: Jorge Alberto Gar NP-C Status:REG [facility] Patient Name: Dilshad Pack Procedure Date: 12/07/2024 6:11 AM Date of : 1960 Age: 64 Procedure: Flexible Sigmoidoscopy Indications: Clinically significant diarrhea of unexplained origin, Functional diarrhea Providers: DO Tesfaye Chen MD: Jorge Alberto Gar Medicines: Monitored Anesthesia Care Patient Profile: This is a 64 year old male. Refer to note in patient chart for documentation of history and physical. Last Colonoscopy: within the past year. Complications: No immediate complications. Procedure: Pre-Anesthesia Assessment: - Prior to the procedure, a History and Physical was performed, and patient medications and allergies were reviewed. The patient is competent. The risks and benefits of the procedure and the sedation options and risks were discussed with the patient. All questions were answered and informed consent was obtained. Patient identification and proposed procedure were verified by the physician in the pre-procedure area. Mental Status Examination: alert and oriented. Airway Examination: normal oropharyngeal airway and neck mobility. Respiratory Examination: clear to auscultation. CV Examination: normal. Prophylactic Antibiotics: The patient does not require prophylactic antibiotics. Prior Anticoagulants: The patient has taken no anticoagulant or antiplatelet agents. ASA Grade Assessment: II - A patient with mild systemic disease. After reviewing the risks and benefits, the patient was deemed in satisfactory condition to undergo the procedure. The anesthesia plan was to use monitored anesthesia care (MAC). Immediately prior to administration of medications, the patient was re-assessed for adequacy to receive sedatives. The heart rate, respiratory rate, oxygen saturations, blood pressure, adequacy of pulmonary ventilation, and response to care were monitored throughout the procedure. The physical status of the patient was re-assessed after the procedure. After obtaining informed consent, the endoscope was passed under direct vision. Throughout the procedure, the patient's blood pressure, pulse, and oxygen saturations were monitored continuously. The Colonoscope was introduced through the anus and advanced to the sigmoid colon. The flexible sigmoidoscopy was accomplished without difficulty. The patient tolerated the procedure well. The quality of the bowel preparation was adequate. Scope In: 6:57:41 AM Scope Out: 7:01:32 AM Total Procedure Duration Time 0 hours 3 minutes 51 seconds Findings: The perianal and digital rectal examinations were normal. An area of mildly congested mucosa was found in the recto-sigmoid colon and in the sigmoid colon. Biopsies were taken with a cold forceps for histology. Verification of patient identification for the specimen was done. Estimated blood loss was minimal. Impression: - Congested mucosa in the recto-sigmoid colon and in the sigmoid colon. Biopsied. Recommendation: - Continue present medications. Procedure Code(s): --- Professional --- 22720, Sigmoidoscopy, flexible; with biopsy, single or multiple CPT copyright 2021 [employer] [place] [employer]. All rights reserved. The codes documented in this report are preliminary and upon battery vent plug inserter review may be revised to meet current compliance requirements. Tae Gerber DO 12/07/2024 7:08:13 AM This report has been signed electronically. Number of Addenda: 0 Note Initiated On: 12/07/2024 6:11 AM 12/07/24707 Date Tae Gerber DO Cosigner Signature: Date (if indicated) CC: DIAMOND SORTER-C Jorge Alberto Gar; Tae Gerber DO Date Dictated: 12/07/24610 Date Transcribed: Cube Machine Tender: LISA Signed [facility] MR/POSTOP.[facility] 12-07-2024 MR/POSTOP.[facility] Medical Records Department [address] [place] [address] Anesthesia Postop Eval I 12/07/24712 MR#: [id number] Acct: [id number] Name: DILSHAD PACK Rep #: [id number] : 1960 64 From: Anish Clay PCP: GONZALO Coyle Status:REG SDC Y Race: C Location: [place] [address] Anesthesia: Postop Eval I Current Vital Signs Temperature: 97.7 F Pulse Rate: 61 Blood Pressure: 123/76 Respiratory Rate: 16 Pulse Ox: 97 Oxygen Delivery Method: Room Air Assessment Airway patent: Yes Spontaneous unlabored respirations: Yes Mental status: Asleep nausea: No Vomiting: No Anesthesia Complication: No Fluid Hydration Crystalloid volume administer (ml): 400 Total IV fluid infused: 400 Progress Note Anesthesia document: Postop Eval 1 completed: Yes 12/07/24713 Date Anish Yuenigner Signature: Date CC: Signed Normal [facility] MR/[id number] 12-07-2024 [facility] Medical Records Department [address] [facility] [place] [address] Anesthesia Postop Eval II 12/07/2439 MR#: [id number] Acct: [id number] Name: SIRENADILSHAD Rep #: [id number] : 1960 64 From: Isaac Nesbitt MD PCP: Jorge Alberto Gar, DIAMOND SORTER-C Status:REG [facility] Y Race: C Location: [place] [address] Anesthesia Postop Eval I Sum Postop Eval Completion status Anesthesia document: Postop Eval 1 completed: Yes Anesthesia Postop Eval I Summary Anesthesia Postop Eval I Summary: Anesthesia Postop Eval I: Assessment Summary Airway patent Yes 12/07/24 07:14 [email or web address] Spontaneous unlabored Yes 12/07/24 07:14 [email or web address] respirations Mental status Asleep 12/07/24 07:14 [email or web address] nausea No 12/07/24 07:14 [email or web address] Vomiting No 12/07/24 07:14 [email or web address] Anesthesia Postop Eval I: Fluid Summary Crystalloid volume administer 400 12/07/24 07:14 [email or web address] (ml) Colloids volume administered ( ml) Blood Product volume administered (ml) Total IV fluid infused 400 12/07/24 07:14 [email or web address] Anesthesia Postop Eval I: Summary Notes Anesthesia Complication No 12/07/24 07:14 [email or web address] Anesthesia Complication Comment: Post-operative progress note Anesthesia: Postop Eval II Evaluation Mental status: Awake and Calm Pain Level: 0 nausea: No Vomiting: No Complications Anesthesia Complication: No 12/07/24 0702 Date Isaac Holly Signature: CC: Signed Normal [facility] Surgery Specimen Level Santi 12-07-2024 Surgery Specimen Level IV Patient Age/Sex Location Account Attending Physician DILSHAD PACK 64/M EN [id number] Tae Gerber, DO Specimen: [id number] Received: 12/07/24 Status: DYAN Reddy Num: [id number] Spec Type: COLON BX Subm Dr: Tae Gerber DO HEADER OPERATION: Flexible sigmoidoscopy with biopsy PRE-OP DIAGNOSIS: Diarrhea, irritable bowel syndrome with diarrhea, fecal urgency TISSUE SUBMITTED: A- Sigmoid colon biopsy MICROSCOPIC DIAGNOSIS A. Sigmoid colon, biopsy: * Superficial epithelial damage with slightly increased intraepithelial lymphocytes - see note. * Negative for acute inflammation, granulomas, and crypt distortion. * Note: The histologic findings raise consideration of early/evolving lymphocytic (microscopic) colitis vs medication injury or infection. There is no appreciable thickening of the subepithelial collagen table. Recommend correlation with clinical and endoscopic findings. MICROSCOPIC DESCRIPTION Slides are reviewed. GROSS DESCRIPTION A. Received in formalin in a container labeled with the patient's name, date of , and sigmoid colon biopsy are multiple sawant-pink fragments of mucosal tissue measuring 1.0 x 0.6 x 0.3 cm in aggregate. Submitted in toto in A1. [facility] 12-07-2024 [facility]:[address] Patient Age/Sex Location Account Attending Physician DILSHAD PACK/Gael EN [id number] Tae Friend, DO Signed (signature on file) Dr. Emma Goodman MD 12/14/24 1025 Normal [facility] Comment on above: Performed By: #### L 3410.2920, L3200.1400 #### [facility] [address] [place], [place], [address] MR/[place] 12-03-2024 /SARY.[facility] Medical Records Department [address] [place] [address] PAT - Anesthesia 12/03/24 1449 MR#: [id number] Acct: [id number] Name: SIRENADILSHAD Rep #: [id number] : 1960 64 From: Harsha Vila MD PCP: Jorge Alberto Gar DIAMOND SORTERCarson Status:PRE [facility] Y Race: C Location: EN Pre-Assessment Diagnosis/Proposed Procedure Planned Operative Procedure(s): FLEX SIGMOID Anesthesia History Anesthesia History - senior oracle soa developer: Anesthesia History - senior oracle soa developer Hx Hospitalization No 12/03/24 13:58 Any Problems With Anesthesia No 12/03/24 13:58 Cholinesterase deficiency No 12/03/24 13:58 You/Your Family Experience No 12/03/24 13:58 fever (hyperthermia) with Relationship Recent Exposure to Contagious Disease Does patient have nerve No 12/03/24 13:58 stimulator Patient instructed to have device shut off --Does patient have Pacemaker or ICD? When Was Last Pacemaker Check QUESTION #4 FULL TEXT: You/Your Family Experience fever (hyperthermia) with Anesthesia Last Oral Intake Last Oral intake: Last Oral Intake NPO since Meds taken in AM with sips of water? Meds patient instructed to take am of surgery PONV PONV - senior oracle soa developer: PONV - senior oracle soa developer Female No 12/03/24 13:58 HX of Motion Sickness No 12/03/24 13:58 HX of N/V After Surgery No 12/03/24 13:58 Non-Smoker Yes 12/03/24 13:58 Duration of Surgery greater No 12/03/24 13:58 than 60 minutes Number of Risk Factors 1 12/03/24 13:58 PONV Score Low Risk 12/03/24 13:58 Height Weight Height Weight: Anesthesia: Height Weight Height 6 ft 2 in 10/07/24 14:09 Respiratory Assessment Respiratory Assessment - senior oracle soa developer: Respiratory Tract Infection Hx - senior oracle soa developer Hx Respiratory Tract Infection No 12/03/24 13:58 STOP Sleep Apnea STOP Sleep Apnea - senior oracle soa developer: STOP Sleep Apnea - senior oracle soa developer Hx Hypertension Yes 12/03/24 13:58 Hx Sleep Apnea No 12/03/24 13:58 CPAP BIPAP Do you snore loudly (louder No 12/03/24 13:58 than talking or can be heard Do you often feel tired/ No 12/03/24 13:58 fatigued/ sleepy during daytime? Has anyone observed you stop No 12/03/24 13:58 breathing during sleep? STOP Results Negative 12/03/24 13:58 QUESTION #5 FULL TEXT : Do you snore loudly (louder than talking or can be heard through closed doors)? Tobacco Use History Tobacco Use History - senior oracle soa developer: Tobacco Use History - senior oracle soa developer Tobacco Use Smoking Status Never smoker 12/03/24 13:58 Hx Tobacco Use No 12/03/24 13:58 Years Smoking Packs Smoked per Day Smoking Cessation Date was within the last 15 years Hx Smoking Cessation Date Hx Smoking Cessation Counseling Hematologic Medial History Hematologic Hx - senior oracle soa developer: Hematologic Medical Hx - sharepoint specialist Hx of Blood Transfusion No 12/03/24 13:58 Hx of Transfusion in last 3 No 12/03/24 13:58 Months Date of Last Transfusion (if within last 3 months) Ever experience any problems No 12/03/24 13:58 with transfusion(s)? Specify any problems Hx of Preganancy in last 3 N/A 12/03/24 13:58 Months Nurse Filling Out Transfusion [facility] 12/03/24 13:58 Questions: Date: 12/03/24 12/03/24 13:58 Time: 13:58 12/03/24 13:58 Patient unable to answer at this time (ie. confused, unrespo /Reproduction History /Reproductive History - senior oracle soa developer: /Reproductive Hx- senior oracle soa developer Hx Now No 12/03/24 13:58 Gestational Age (in weeks): EDC: Hx Hx Para Hx Section SAB [facility] Medical History Wears glasses Anxiety Marijuana use Alcohol use Arthritis Dietary restriction Gastric reflux Non-smoker History of irregular heartbeat History of echocardiogram History of stress test Cardiology follow-up encounter Dizziness Epigastric pain Osteoarthritis IBS (irritable bowel syndrome) HTN (hypertension) Sciatica Essential (primary) hypertension Insomnia Chronic low back pain Anxiety and depression Hyperlipidemia Dilated aortic root Non-sustained ventricular tachycardia Home Medications ???Medication ???Instructions ???Recorded ???Last Taken ???Type escitalopram oxalate 20 mg tablet 20 mg PO DAILY 12/09/20 Unknown H istory multivitamin 1 tab PO DAILY 12/09/20 Unknown Hi story alprazolam 0.25 mg tablet 0.25 mg PO BID PRN anxiety 1 Unknown History fluticasone propionate 50 1 spray intranasal DAILY PRN 12/13 Unknown History mcg/actuation nasal allergy symptoms spray,suspensi (more content not included)... Normal [facility] Calprotectin, Stoolon [address] 6 ug/g Normal 0-120 [facility] Comment on above: Result Comment: Conc entration Interpretation Follow-Up < 5 - 50 ug/g Normal None >50 -120 ug/g Borderline Re-evaluate in 4-6 weeks >120 ug/g Abnormal Repeat as clinically indicated Performed at: - [facility] [id number] Reordering Clerk: Gina Vivar MD, Phone: [phone] Performed By: #### L 7000.0700 #### [facility] [address] [place], [address] Calprotectin stoolOrdered By : Kirsten Christianson on 11-08-2024 Calprotectin stool 6 ug/g 0-120 [facility] Comment on above: Concentration Interp retation Follow-Up< 5 - 50 ug/g Normal None>50 -120 ug/g Borderline Re-evaluate in 4-6 weeks >120 ug/g Abnormal Repeat as clinically indicatedPerformed at: [facility] [address] [id number] Director: Gina Vivar MD, Phone: [phone] Stool Calprotectin 6 ug/g 0-120 [facility] Comment on above: Concentration Interp retation Follow-Up< 5 - 50 ug/g Normal None>50 -120 ug/g Borderline Re-evaluate in 4-6 weeks >120 ug/g Abnormal Repeat as clinically indicatedPerformed at: [facility] [employer] [id number] Director: Gina Vivar MD, Phone: [phone] t-Transglutaminase IgGon tTG IGG 21 U/mL Abnormal 0-5 [facility] Comment on above: Result Comment: Nega tive 0 - 5 Weak Positive 6 - 9 Positive >9 Performed at: - [address] [id number] Reordering Clerk: Alexys Romo PhD, Phone: [phone] Performed By: #### L 3410.2970, L3410.9998 #### [facility] [address] [place], [address] [facility] Misc.on 11-04-2024 [facility] Misc. COMMENT Normal . [facility] Comment on above: Order Comment: [id number] RED RT Result Comment: Test Ordered: [id number] Antigliadin Abs, IgG Deamidated Gliadin Abs, IgG 8 units Reference Range: 0-19 Negative 0 - 19 Weak Positive 20 - 30 Moderate to Strong Positive >30 Performed at: [facility] [id number] Reordering Clerk: Alexys Romo PhD, Phone: [phone] Performed By: #### L 3410.2970, L3410.9998 #### [facility] [address] [place], [place], [id number] No Panel InformationOrdered By: Kirsten Christianson on 11-02-2024 Tissue Transglutaminase IgG Ab 21 U/mL High 0-5 [facility] Comment on above: Negative 0 - 5 Weak Positive 6 - 9 Positive >9Performed at: [address] [id number] Director: Alexys Romo PhD, Phone: [phone] Immunoglobulin Aon 5 IMMUNOGLOB A QN < 5 Low 61-437 [facility] Comment on above: Order Comment: N Result Comment: Resu lt confirmed on concentration. Performed at: [address] [id number] Reordering Clerk: Alexys Romo PhD, Phone: [phone] Performed By: #### L 3410.2920, L3200.1400 #### [facility] [address] [place], [place], [id number] t-Transglutaminase IgAon tTG IGA <2 Normal 0-3 [facility] Comment on above: Result Comment: Nega tive 0 - 3 Weak Positive 4 - 10 Positive >10 Tissue Transglutaminase (tTG) has been identified as the endomysial antigen. Studies have demonstr- ated that endomysial IgA antibodies have over 99% specificity for gluten sensitive enteropathy. Performed By: #### L 3410.2920, L3200.1400 #### [facility] [address] [place], [place], [id number] Gastroenterology Visit Repor ton 10-07-2024 Gastroenterology Visit Report [facility] Gastroenterology [address] [place] [address] OFFICE VISIT Date of Service: 10/07/24 MR#: [id number] Acct: [id number] Name: DILSHAD PACK Rep #: [id number] : 1960 Provider: GONZALO oates Age/Sex: 64/M [place] [facility] [place]: Signed Intake Vital Signs 01/10/22 13:53 10/07/24 14:09 Height 6 ft 2 in 6 ft 2 in Weight: 198 lb BMI 25.4 BP 139/85 H Respiration 16 Pulse 63 Pulse Oximetry (%) 95 Oxygen Delivery Method room air Intake Visit Reasons: Diarrhea Radiology Clerk Required: No Is patient in pain?: No Allergies Sulfa (Sulfonamide Antibiotics) Allergy (Verified 10/07/24 14:05) hives clarithromycin (From Biaxin) Adverse Reaction (Verified 10/07/24 14:05) diarrhea Medications ???Medication ???Instructions ???Recorded ???Confirmed ???Type escitalopram oxalate 20 mg tablet 20 mg PO DAILY 12/09/20 10/07/24 History multivitamin 1 tab PO DAILY 12/09/20 10/07/24 H istory alprazolam 0.25 mg tablet 0.25 mg PO BID PRN 12/13/20 History fluticasone propionate 50 1 spray intranasal DAILY PRN 12/1310/07/24 History mcg/actuation nasal spray,suspension (Flonase Allergy Relief) colesevelam 625 mg tablet 1,875 mg PO BID 10/07/24 10/07/24 History diltiazem HCl 120 mg 60 mg PO BID 10/07/24 10/07/24 His tory capsule,extended release 24 hr meloxicam 15 mg tablet 15 mg PO QDAY 10/07/24 10/07/24 Hi story pantoprazole 20 mg tablet,delayed 20 mg PO QDAY 10/07/24 10/07/24 H istory release tadalafil 5 mg tablet 5 mg PO QDAY 10/07/24 10/07/24 His tory zolpidem 10 mg tablet 10 mg PO QHS 10/07/24 10/07/24 His tory Nurse's Note: Has been having diarrhea since last February has had blood in his stool in the past. [facility] Medical History Dizziness Epigastric pain Osteoarthritis IBS (irritable bowel syndrome) HTN (hypertension) Sciatica Essential (primary) hypertension Insomnia Chronic low back pain Anxiety and depression Hyperlipidemia Dilated aortic root Non-sustained ventricular tachycardia Surgical History History of discectomy History of vasectomy Family History Father Cancer throat Mother Hypertension Arthritis Grandfather Alcoholism Myocardial infarction Social History alcohol intake: current alcohol intake frequency: 3 or more drinks per day Alcohol type: hard liquor substance use type: marijuana HPI HPI Details: DILSHAD PACK, is a 64 M who presents to the office today for - reports symptoms began February 2024 after eating out at night - fecal continence - ever since then he has had diarrhea - he typically has 3 BM every morning and then 20 minutes after every meal, snack or even a drink he has to have a BM - first BM of day is usually half baked then followed by loose/watery stools - denies any bleeding - denies any pain - denies any fevers or night sweats - reports he lost 25lbs towards the end of 2023 but has regained this weight - Colesevelam 3 tabs BID - 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 20mg daily - without Colesevelam - total blow out and explosive - denies any family h/o colon CA, crohns or colitis - denies any family h/o celiac disease - Meloxicam 15mg QD PRN ROS Const Constitutional: Positive for fatigue and weight change (gain); No fever(s) ENT ENT: No difficulty swallowing Gastro GI: Positive for bloating, change in bowel habits, diarrhea, heartburn and Blood in stool; No abdominal pain, belching, change in stool character, coffee ground emesis, constipation, cramping, difficulty swallowing, feeling full early, excessive flatus, incontinent of stools, Vomiting blood/hematemesis, loose stools, Black,tarry stools, nausea/dyspepsia, pain with swallowing, vomiting or other Musc Musculoskeletal: Positive for joint pain Skin Skin: Positive for dry skin, itchy eyes and rash; No yellowing of the eye Psych Psychiatric: No anxiety and No depression Endo Endocrine: Positive for fatigue and weight change (gain) Aller/Imm Allergy/Immunologic: Positive for itchy eyes Bernabe/Lymp Hematologic/Lymphatic: Positive for easy bruising; No easy bleeding Exam Const General: cooperative, healthy appearing, no acute distress and well developed Nutritional Appearance: average body habitus and well nourished Orientation: alert and oriented x3 HENMT Head: normocephalic Ears: hearing grossly normal bilaterally Mouth: moist mucous membranes Teeth and gingiva: dentition normal Eyes Conjunctivae: conjunctivae normal Sclera: scler (more content not included)... Normal [facility] IgA [Mass/Vol]Ordered By: Adán Christianson on 10-07-2024 Immunoglobulin A < 5 mg/dL Low [address] [place] [address] Comment on above: Result confirmed on concentration.Performed at: [facility] [address] Director: Alexys Romo PhD, Phone: [phone] Serum or plasma IgA measurem ent (mass/volume)Ordered By: Kirsten Christianson on 10-07-2024 IgA [Mass/Vol] mg/dL Low [address] [place] [address] Comment on above: Result confirmed on concentration.Performed at: [facility] [address] [id number] Director: Alexys Romo PhD, Phone: [phone] Serum tissue transglutaminas e (tTG) IgA antibody assay (units/volume)Ordered By: Kirsten Christianson on 10-07-2024 tTG IgA Qn (S) <2 U/mL 0-3 [facility] Comment on above: Negative 0 - 3 Weak Positive 4 - 10 Positive >10 Tissue Transglutaminase (tTG) has been identified as the endomysial antigen. Studies have demonstr- ated that endomysial IgA antibodies have over 99% specificity for gluten sensitive enteropathy. tTG IgA Qn (S)Ordered By: Adán Christianson on 10-07-2024 Tissue Transglutaminase IgA Ab <2 U/mL 0-3 [facility] Comment on above: Negative 0 - 3 Weak Positive 4 - 10 Positive >10 Tissue Transglutaminase (tTG) has been identified as the endomysial antigen. Studies have demonstr- ated that endomysial IgA antibodies have over 99% specificity for gluten sensitive enteropathy. CDIFF (PCR)on 09-06-2024 CDIFF SPECIMEN IN LAB Pending [phone] [id number] Presumptive Negative *for epidemiolologic???use C. Diff PCR Negative- No toxigenic C. Diff Detected Normal [facility] Comment on above: Performed By: #### M [id number] #### [facility] [address] [place], [address] C. difficile DNA TOMAS+probe Q l (Unsp spec)Ordered By: Jorge Alberto Gar on 09-03-2024 Clostridioides difficile (PCR) [facility] Clostridium difficile detect ion by polymerase chain reactionOrdered By: Jorge Alberto Gar on 09-03-2024 C. difficile DNA TOMAS+probe Ql (Unsp spec) [facility] Basophil percentageOrdered B y: Jorge Alberto Gar on 09-03-2023 Bilirubin [Mass/Vol] 1.10 mg/dL 0.20-1.[address] [facility] Comment on above: For patients on eltr ombopag therapy, use of Dimension Steger TBIL is not recommended. Chloride [Moles/Vol] 108 mmol/L 98-[address] [facility] Cholesterol [Mass/Vol] 225 mg/dL <200 [facility] Comment on above: <200 mg/dL Desirable 200-240 mg/dL Borderline >240 mg/dL High Risk Glucose [Mass/Vol] 103 mg/dL 74-106 [facility] Comment on above: Fasting Glucose resu lt from 100 to 125 mg/dL suggests IMPAIRED HOMEOSTASIS per A.D.A. criteria. Hemoglobin (Bld) [Mass/Vol] 14.4 g/dL 13.0-16.5 [facility] Potassium [Moles/Vol] 3.8 mmol/L 3.5-5.1 [facility] Protein [Mass/Vol] 7.1 g/dL 6.4-8.2 [facility] Sodium [Moles/Vol] 137 mmol/L 136-145 [facility] Triglyceride [Mass/Vol] 191 mg/dL <199 [facility] Comment on above: The drugs N-Acetylcy steine and Metamizole may falsely depress this assay.Serum Triglycerides Reference Interval Normal <150 mg/dL Borderline high 150 - 199 mg/dL High 200 - 499 mg/dL Very High > or = 500 mg/dL WBC (Bld) [#/Vol] 5.9 10*3/uL 4.4-11.0 [facility] Determination of erythrocyte mean corpuscular volume (MCV)Ordered By: Jorge Alberto Gar on 09-03-2023 MCV (RBC) [Entitic vol] 88.1 fL 80-94 [facility] Erythrocyte distribution wid th ratioOrdered By: Jorge Alberto Gar on 09-03-2023 Erythrocyte distribution width (RBC) [Ratio] 12.4 % 11.6-14.6 [facility] Erythrocyte distribution wid th standard deviationOrdered By: Jorge Alberto Gar on 09-03-2023 Erythrocyte distribution width (RBC) [Entitic vol] 40.1 fL 35.1-43.9 [facility] Hematocrit Auto (Bld) [Volum e fraction]Ordered By: Jorge Alberto Gar on 09-03-2023 Hematocrit (Bld) [Volume fraction] 42.8 % 40-54 [facility] - Chemistry and C hemistry - challengeOrdered By: Jorge Alberto Gar on 09-03-2023 Albumin/Globulin [Mass ratio] 1.0 {ratio} 0.9-2.4 [facility] ALP [Catalytic activity/Vol] 67 U/L 45-117 [facility] ALT [Catalytic activity/Vol] 30 U/L 16-61 [facility] Cholesterol in HDL (Body fld) [Mass/Vol] 51 mg/dL >40 [facility] Comment on above: The drugs N-Acetylcy steine and Metamizole may falsely depress this assay. Reference Range HDL <40 mg/dL Low HDL Cholesterol HDL >or= 60 mg/dL High HDL Cholesterol Cholesterol in LDL (Body fld) [Moles/Vol] 136 mg/dL 0-130 [facility] Cholesterol in VLDL Calc [Moles/Vol] 38 mg/dL 5-40 [facility] CO2 [Moles/Vol] 27.0 mmol/L 21.0-32.0 [facility] Globulin (S) [Mass/Vol] 3.5 g/dL 2.2-4.2 [facility] Urea nitrogen/Creatinine [Mass ratio] 14.5 mg/mg 10-20 [facility] - Hematology and Cell countsOrdered By: Jorge Alberto Gar on 09-03-2023 MCH (RBC) [Entitic mass] 29.6 pg 27.0-32.0 [facility] MCHC (RBC) [Mass/Vol] 33.6 g/dL 32-36 [facility] Platelets (Bld) [#/Vol] 236 10*3/uL 150-450 [facility] No Panel InformationOrdered By: Jorge Alberto Gar on 09-03-2023 Estimated GFR (MDRD) Amer 101 mL/min >60 [facility] Comment on above: GFR Calc Estimated GFR (MDRD) Non-Af Amer 83 mL/min >60 [facility] Comment on above: Non- GFR Calc Platelet mean volume Sukhjinder-Ec ker (Bld) [Entitic vol]Ordered By: Jorge Alberto Gar on 09-03-2023 Platelet mean volume (Bld) [Entitic vol] 9.2 fL 6.2-12.0 [facility] RBC Auto (Bld) [#/Vol]Ordere d By: Jorge Alberto Gar on 09-03-2023 RBC (Bld) [#/Vol] 4.86 10*6/uL 4.6-6.2 [facility] Screening prostate specific antigen (PSA) measurementOrdered By: Jorge Alberto Gar on 09-03-2023 Prostate specific Ag IA [Mass/Vol] 1.06 ng/mL 0.00-4.00 [facility] Comment on above: This test was perfor med using the TPSA assay method [facility]. Values obtained with differentassay methods cannot be used interchangably.When changing PSA assays in the course of monitoring apatient, additional sequential testing should be carriedout to confirm baseline values. Serum or plasma calcium marco urement (mass/volume)Ordered By: Jorge Alberto Gar on 09-03-2023 Calcium [Mass/Vol] 8.6 mg/dL 8.5-10.1 [facility] Serum or plasma creatinine m easurement (mass/volume)Ordered By: Jorge Alberto Gar on 09-03-2023 Creatinine [Mass/Vol] 0.97 mg/dL 0.70-1.30 [facility] Comment on above: The validity of the calculated GFR & GFRAA in patients over 70 years has not been determined. Clinical correlation is essential. Serum or plasma urea nitroge n measurement (mass/volume)Ordered By: Jorge Alberto Gar on 09-03-2023 Urea nitrogen [Mass/Vol] 14 mg/dL 7-18 [facility] Thin prep Papanicolaou smear with manual screeningOrdered By: Jorge Alberto Gar on 09-03-2023 Thin prep Papanicolaou smear with manual screening 3.6 g/dL 3.2-5.0 [facility] Thin prep Papanicolaou smear with manual screening 24 U/L 15-37 [facility] Thin prep Papanicolaou smear with manual screening 2 5-15 [facility] Thin prep Papanicolaou smear with manual screening 12.8 mg/L NO RANGE EST. [facility] Urine albumin/creatinine rat io for detection of microalbuminuriaOrdered By: Jorge Alberto Gar on 09-03-2023 Albumin/Creatinine DL <= 1.0 mg/L (24H U) [Ratio] 6.3 mg/g CRE <30 [facility] Urine creatinine measurement (mass/volume)Ordered By: Jorge Alberto Gar on 09-03-2023 Creatinine (U) [Mass/Vol] 204.00 mg/dL NO RANGE EST. [facility] Whole blood hemoglobin A1c/t otal hemoglobin ratio (mass fraction)Ordered By: Jorge Alberto Gar on 09-03-2023 HbA1c (Bld) [Mass fraction] 5.0 % 3.8-5.6 [facility] Comment on above: Normal < 5.7 % Predi abetic 5.7 - 6.4 % Diabetic >or= 6.5 % Please note range changes. Basophil percentageon 2021 Basophil percentage < 0.9 mg/dL 0.70-1.[address] [facility] Work Phone: No Panel Informationon 01-10 Bedside Estimated GFR (eGFR) > 60.0000 mL/min >60 [facility] Work Phone: Basophil percentageon 2021 Bilirubin [Mass/Vol] 0.70 mg/dL 0.20-1.[address] [facility] Work Phone: Comment on above: For patients on eltr ombopag therapy, use of Dimension Steger TBIL is not recommended. Chloride [Moles/Vol] 106 mmol/L 98-[address] [facility] Work Phone: Cholesterol [Mass/Vol] 224 mg/dL <200 [facility] Work Phone: Comment on above: <200 mg/dL Desirable 200-240 mg/dL Borderline >240 mg/dL High Risk Glucose [Mass/Vol] 106 mg/dL 74-106 [facility] Work Phone: Comment on above: Fasting Glucose resu lt from 100 to 125 mg/dL suggests IMPAIRED HOMEOSTASIS per A.D.A. criteria. Potassium [Moles/Vol] 3.7 mmol/L 3.5-5.1 [facility] Work Phone: Protein [Mass/Vol] 7.2 g/dL 6.4-8.2 [facility] Work Phone: Sodium [Moles/Vol] 140 mmol/L 136-145 [facility] Work Phone: Triglyceride [Mass/Vol] 226 mg/dL [facility] Work Phone: Comment on above: The drugs N-Acetylcy steine and Metamizole may falsely depress this assay.Serum Triglycerides Reference Interval Normal <150 mg/dL Borderline high 150 - 199 mg/dL High 200 - 499 mg/dL Very High > or = 500 mg/dL WBC (Bld) [#/Vol] 5.7 10*3/uL 4.4-11.0 [facility] Work Phone: Blood erythrocytes count (nu mber/volume)on 12-05-2021 RBC (Bld) [#/Vol] 4.91 10*6/uL 4.6-6.2 [facility] Work Phone: Blood hemoglobin measurement (mass/volume)on 12-05-2021 Hemoglobin (Bld) [Mass/Vol] 14.4 g/dL 13.0-16.5 [facility] Work Phone: [phone] Blood platelet mean volumeon 12-05-2021 Platelet mean volume (Bld) [Entitic vol] 9.2 fL 6.2-12.0 [facility] Work Phone: [phone] Determination of erythrocyte mean corpuscular volume (MCV)on 12-05-2021 MCV (RBC) [Entitic vol] 86.4 fL 80-94 [facility] Work Phone: [phone] Hematocrit Auto (Bld) [Volum e fraction]on 12-05-2021 Hematocrit (Bld) [Volume fraction] 42.4 % 40-54 [facility] Work Phone: [phone] Laboratory - Chemistry and C hemistry - challengeon 12-05-2021 ALP [Catalytic activity/Vol] 56 U/L 45-117 [facility] Work Phone: ALT [Catalytic activity/Vol] 32 U/L 16-61 [facility] Work Phone: [phone] CO2 [Moles/Vol] 29.0 mmol/L 21.0-32.0 [facility] Work Phone: [phone] Globulin (S) [Mass/Vol] 3.6 g/dL 2.2-4.2 [facility] Work Phone: [phone] Urea nitrogen/Creatinine [Mass ratio] 16.7 mg/mg 10-20 [facility] Work Phone: [phone] Laboratory - Hematology and Cell countson 12-05-2021 Erythrocyte distribution width (RBC) [Entitic vol] 38.5 fL 35.1-43.9 [facility] Work Phone: [phone] Erythrocyte distribution width (RBC) [Ratio] 12.2 % 11.6-14.6 [facility] Work Phone: [phone] MCH (RBC) [Entitic mass] 29.3 pg 27.0-32.0 [facility] Work Phone: MCHC Auto (RBC) [Mass/Vol]on 12-05-2021 MCHC (RBC) [Mass/Vol] 34.0 g/dL 32-36 [facility] Work Phone: No Panel Informationon 12-05 Estimated GFR (MDRD) Amer 84 mL/min >60 [facility] Work Phone: Comment on above: GFR Calc Estimated GFR (MDRD) Non-Af Amer 69 mL/min >60 [facility] Work Phone: Comment on above: Non- GFR Calc Prostate Specific Antigen Screen 1.46 ng/mL 0.00-4.00 [facility] Work Phone: Comment on above: This test was perfor med using the TPSA assay method for [employer] chemistry system. Values obtained with differentassay methods cannot be used interchangably.When changing PSA assays in the course of monitoring apatient, additional sequential testing should be carriedout to confirm baseline values. Thyroid Stimulating Hormone (TSH) 2.97 uIU/mL 0.358-3.74 [facility] Work Phone: Platelets bldon 12-05-2021 Platelets (Bld) [#/Vol] 272 10*3/uL 150-450 [facility] Work Phone: Serum or plasma albumin marco urement (mass/volume)on 12-05-2021 Albumin [Mass/Vol] 3.6 g/dL 3.2-5.0 [facility] Work Phone: Serum or plasma albumin/glob ulin mass ratioon 12-05-2021 Albumin/Globulin [Mass ratio] 1.0 {ratio} 0.9-2.4 [facility] Work Phone: Serum or plasma calcium marco urement (mass/volume)on 12-05-2021 Calcium [Mass/Vol] 8.7 mg/dL 8.5-10.1 [facility] Work Phone: Serum or plasma cholesterol in HDL measurement (mass/volume)on 12-05-2021 Cholesterol in HDL [Mass/Vol] 40 mg/dL [facility] Work Phone: Comment on above: The drugs N-Acetylcy steine and Metamizole may falsely depress this assay. Reference Range HDL <40 mg/dL Low HDL Cholesterol HDL >or= 60 mg/dL High HDL Cholesterol Serum or plasma cholesterol in VLDL measurement (mass/volume)on 12-05-2021 Cholesterol in VLDL [Mass/Vol] 45 mg/dL 5-40 [facility] Work Phone: Serum or plasma creatinine m easurement (mass/volume)on 12-05-2021 Creatinine [Mass/Vol] 1.14 mg/dL 0.70-1.30 [facility] Work Phone: Comment on above: The validity of the calculated GFR & GFRAA in patients over 70 years has not been determined. Clinical correlation is essential. Serum or plasma low density lipoprotein (LDL) cholesterol measurement (mass/volume)on 12-05-2021 Cholesterol in LDL [Mass/Vol] 139 mg/dL 0-130 [facility] Work Phone: Serum or plasma urea nitroge n measurement (mass/volume)on 12-05-2021 Urea nitrogen [Mass/Vol] 19 mg/dL 7-18 [facility] Work Phone: Thin prep Papanicolaou smear with manual screeningon 12-05-2021 Thin prep Papanicolaou smear with manual screening 17 U/L 15-37 [facility] Work Phone: Thin prep Papanicolaou smear with manual screening 5 5-15 [facility] Work Phone: Surgical Pathologyon 017 Surgical Pathology [id number] [facility] PATHOLOGY AND LABORATORY MEDICINE [address] [place] [id number] FINAL SURGICAL PATHOLOGY REPORT ___NAME: DILSHAD PACK .O.B.: 1960 57 Y M ELEANOR NO.: [id number]: [id number] PROCEDURE 07/21/2017 DATE:SURGEON: GABRIELA SHELTON RECEIVED 07/23/2017 DATE:ATTENDING: ART NON-CREDENTIALED REPORT DATE: 07/25/2017 COPIES TO: DIAGNOSIS:SKIN, LEFT SUPERIOR MEDIAL LOWER BACK, PUNCH (DIF) - NEGATIVE DIRECTIMMUNOFLUORESCENCE. Comment: Direct antibody localization demonstrates no evidence ofimmunoreactivity for immunoglobulins IgG, IgM, IgA, complement C3, orfibrinogen on sections of frozen skin.JAW/ADEEL HICKMAN M.D. _CLINICAL INFORMATION: Dermatitis unspecified versus dermatitisherpetiformis versus drug reactionSPECIMEN: SKIN _GROSS DESCRIPTION:Left superior medial lower backReceived in Fred's fixative is a 0.3 cm punch biopsy of sawant skin.The specimen is submitted entirely for direct immunofluorescence. (1ns, 1) MLC1/0RWDisclaimer: The following statement applies to allimmunohistochemistry, in situ hybridization, molecular studies, andimmunofluorescence testing.The use of one or more reagents in the above tests is regulated as ananalyte specific reagent (ASR). These tests were developed and theirperformance characteristics determined by the clinical laboratories [facility]. They have not been cleared by the US Food and DrugAdministration (FDA). The FDA has determined that such clearance orapproval is not necessary.All the above immunostains were performed on paraffin embedded tissue.Appropriate positive and negative controls (where applicable) were runin parallel with the patient's specimen; these controls showed expectedstaining pattern, with acceptable intensity of staining.Immunohistochemi leida assays have not been validated on decalcifiedtissues. Results should be interpreted with caution given the raisedpossibility of false negativity on decalcified specimens.Professional Performing Location: [place] [address]. DEPARTMENT OF PATHOLOGY AND LABORATORY MEDICINE [place], [place] [address] [facility] Comment on above: Performed By: #### S UR ####Performing Lab is in report Vital Signs Date Time Vital Sign Value Performing Clinician Faci daniel 05-16-2025 15:00-0400 Body height 187.96 cm Jorge Alberto Gongpkins [facility] Work Phone: [facility] 05-16-2025 15:00-0400 Body mass index (BMI) [Ratio] 26.6 kg/m2 Jorge Alberto Cong [facility] Work Phone: [facility] 05-16-2025 15:00-0400 Body temperature 97.8 [degF] Jorge Alberto Moscosokins [facility] Work Phone: [facility] 05-16-2025 15:00-0400 Body weight 94.34 kg Jorge Alberto [place] [facility] Work Phone: [facility] 05-16-2025 15:00-0400 Diastolic blood pressure 72 mm[Hg] Jorge Alberto [place] [facility] Work Phone: [facility] 05-16-2025 15:00-0400 Heart rate 80 /min Jorge Alberto Moscosokins [facility] Work Phone: [facility] 05-16-2025 15:00-0400 Respiratory rate 18 /min Jorge Alberto Gongpkins [facility] Work Phone: [facility] 05-16-2025 15:00-0400 SaO2% (BldA) [Mass fraction] 94 % Jorge Alberto Gongpkins [facility] Work Phone: [facility] 05-16-2025 15:00-0400 Systolic blood pressure 136 mm[Hg] Jorge Alberto Gongpkins [facility] Work Phone: [facility] 12-30-2024 08:04-0400 Body height 187.96 cm Jorge Alberto Gongpkins [facility] Work Phone: [facility] 12-30-2024 08:04-0400 Body mass index (BMI) [Ratio] 25.8 kg/m2 Jorge Alberto Gongpkins [facility] Work Phone: [facility] 12-30-2024 08:04-0400 Body weight 91.34 kg Jorge Alberto Gongpkins [facility] Work Phone: [facility] 12-30-2024 08:04-0400 Diastolic blood pressure 71 mm[Hg] Jorge Alberto Gongpkins [facility] Work Phone: [facility] 12-30-2024 08:04-0400 Heart rate 64 /min Jorge Alberto Gongpkins [facility] Work Phone: [facility] 12-30-2024 08:04-0400 Respiratory rate 17 /min Jorge Alberto Gongpkins [facility] Work Phone: [facility] 12-30-2024 08:04-0400 SaO2% (BldA) [Mass fraction] 92 % Jorge Alberto [place] [facility] Work Phone: [facility] 12-30-2024 08:04-0400 Systolic blood pressure 157 mm[Hg] Jorge Alberto [place] [facility] Work Phone: [facility] 12-07-2024 07:20-0400 Body temperature 97.7 [degF] Jorge Alberto Gar [facility] Work Phone: [facility] 12-07-2024 07:20-0400 Diastolic blood pressure 91 mm[Hg] Jorge Alberto Gar [facility] Work Phone: [facility] 12-07-2024 07:20-0400 Heart rate 60 /min Jorge Alberto Gar [facility] Work Phone: [facility] 12-07-2024 07:20-0400 Respiratory rate 16 /min Jorge Alberto Gar [facility] Work Phone: [facility] 12-07-2024 07:20-0400 SaO2% (BldA) [Mass fraction] 95 % Jorge Alberto Gar [facility] Work Phone: [facility] 12-07-2024 07:20-0400 Systolic blood pressure 140 mm[Hg] Jorge Alberto Gar [facility] Work Phone: [facility] 12-07-2024 05:52-0400 Body mass index (BMI) [Ratio] 25.5 kg/m2 Jorge Alberto Gar [facility] Work Phone: [facility] 12-07-2024 05:52-0400 Body weight 90.26 kg Jorge Alberto Gar [facility] Work Phone: [facility] 10-07-2024 14:09-0500 Body height 187.96 cm Jorge Alberto Gar [facility] Work Phone: [facility] 10-07-2024 14:09-0500 Body mass index (BMI) [Ratio] 25.4 kg/m2 Jorge Alberto Gar [facility] Work Phone: [facility] 10-07-2024 14:09-0500 Body weight 89.81 kg Jorge Alberto Gar [facility] Work Phone: [facility] 10-07-2024 14:09-0500 Diastolic blood pressure 85 mm[Hg] Jorge Alberto Gongpkins [facility] Work Phone: [facility] 10-07-2024 14:09-0500 Heart rate 63 /min Jorge Alberto Gar [facility] Work Phone: [facility] 10-07-2024 14:09-0500 Respiratory rate 16 /min Jorge Alberto Gar [facility] Work Phone: [facility] 10-07-2024 14:09-0500 SaO2% (BldA) [Mass fraction] 95 % Jorge Alberto Gar [facility] Work Phone: [facility] 10-07-2024 14:09-0500 Systolic blood pressure 139 mm[Hg] Jorge Alberto Gongpkins [facility] Work Phone: [facility] 01-10-2022 14:21-0400 Diastolic blood pressure 90 mm[Hg] [facility] Jorge Alberto Gongpkins [facility] Work Phone: [facility] Work Phone: 01-10-2022 14:21-0400 Heart rate 55 /min [facility] Jorge Alberto Gar [facility] Work Phone: [facility] Work Phone: 01-10-2022 14:21-0400 Respiratory rate 16 /min [facility] Jorge Alberto Gar [facility] Work Phone: [facility] Work Phone: 01-10-2022 14:21-0400 SaO2% (BldA) [Mass fraction] 97 % DIAMOND SORTER-C Jorge Alberto Gongpkins DIAMOND SORTER Work Phone: [facility] Work Phone: 01-10-2022 14:21-0400 Systolic blood pressure 158 mm[Hg] DIAMOND SORTER-C Jorge Alberto Gongpkins DIAMOND SORTER Work Phone: [facility] Work Phone: 01-10-2022 13:53-0400 Body height 187.96 cm DIAMOND SORTER-C Jorge Alberto Gongpkins DIAMOND SORTER Work Phone: [facility] Work Phone: 01-10-2022 13:53-0400 Body mass index (BMI) [Ratio] 25 kg/m2 DIAMOND SORTER-Kristina Gar DIAMOND SORTER Work Phone: [facility] Work Phone: 01-10-2022 13:53-0400 Body weight 88.45 kg DIAMOND SORTER-C Jorge Alberto Gar DIAMOND SORTER Work Phone: [facility] Work Phone: Encounters Encounter Date Encounter Type Care Provider Facility Start: 05-23-2025 End: 05-23-2025 ambulatory Kirsten Christianson Facility:[facility] Start: 05-16-2025 End: 05-16-2025 Patient encounter procedure Kirsten CAMACHOC -[facility] Work Phone: Start: 05-16-2025 End: 05-16-2025 ambulatory Jorge Alberto Gar NP-C Work Phone: -[facility] Start: 02-24-2025 End: 02-28-2025 ambulatory JORGE ALBERTO GAR TRANSFER SPECIALIST - BOX INSPECTOR Facility:[facility] Start: 02-24-2025 End: 02-28-2025 Outreach Lab JORGE ALBERTO GAR TRANSFER SPECIALIST - BOX INSPECTOR [facility] Start: 12-30-2024 End: 12-30-2024 Patient encounter procedure Kirsten CAMACHOC -[facility] Work Phone: Start: 12-30-2024 End: 12-30-2024 ambulatory Jorge Alberto Gar DIAMOND SORTER-C Work Phone: [facility] Work Phone: Start: 12-07-2024 ambulatory Jorge Alberto Gar DIAMOND SORTER Facility:[facility] Start: 12-07-2024 Non-patient / Non-visit Tae Gerber DO -[facility] Start: 12-07-2024 End: 12-07-2024 Admission to same day surgery center Tae Gerber DO -Endoscopy Work Phone: Start: 12-07-2024 End: 12-07-2024 ambulatory Jorge Alberto Gar NP Facility:[facility] Start: 11-08-2024 End: 11-08-2024 ambulatory Jorge Alberto Gar DIAMOND SORTER-C Work Phone: [facility] Work Phone: Start: 11-08-2024 End: 11-08-2024 Patient encounter procedure Kirsten Christianson NP-C -Laboratory, Specimen Work Phone: Start: 11-08-2024 End: 11-08-2024 ambulatory Kirsten Christianson Facility:[facility] Start: 11-02-2024 End: 11-02-2024 ambulatory Jorge Alberto Gar DIAMOND SORTER-C Work Phone: [facility] Work Phone: Start: 11-02-2024 End: 11-02-2024 Patient encounter procedure Kirsten CAMACHOC -Laboratory Work Phone: Start: 11-02-2024 End: 11-02-2024 ambulatory Kirsten Christianson Facility:[facility] Start: 10-07-2024 End: 10-07-2024 ambulatory Jorge Alberto Gar DIAMOND SORTER-C Work Phone: [facility] Work Phone: Start: 10-07-2024 End: 10-07-2024 Patient encounter procedure Kirsten Christianson NP-C -Laboratory Work Phone: Start: 10-07-2024 End: 10-07-2024 Patient encounter procedure Kirsten Christianson NP-C -[facility] Work Phone: Start: 10-07-2024 End: 10-07-2024 ambulatory Jorge Alberto Gar DIAMOND SORTER Facility:[facility] Start: 10-07-2024 End: 10-07-2024 ambulatory Kirsten Christianson Facility:[facility] Start: 09-03-2024 End: 09-03-2024 Patient encounter procedure Jorge Alberto Gar DIAMOND SORTER-C -Laboratory, Specimen Work Phone: Start: 09-03-2024 End: 09-03-2024 ambulatory Jorge Alberto Gar DIAMOND SORTER Facility:[facility] Start: 09-03-2023 End: 09-03-2023 ambulatory [facility] Work Phone: Start: 09-03-2023 End: 09-03-2023 Patient encounter procedure [facility] Work Phone: Start: 01-14-2022 Non-patient / Non-visit DIAMOND SORTER-C Jorge Alberto Gar DIAMOND SORTER Work Phone: [facility] Start: 01-10-2022 End: 01-10-2022 Patient encounter procedure DIAMOND SORTER-C Jorge Alberto Gar DIAMOND SORTER Work Phone: [facility] Start: 12-05-2021 End: 12-05-2021 Patient encounter procedure [facility]-Laboratory Start: 07-21-2017 Ambulatory UNKNOWN PROVIDER [facility] Procedures Date Procedure Procedure Detail Performing Clinician Start: 09-03-2024 Clostridium difficil e detection Jorge Alberto Gar DIAMOND SORTER-C Work Phone: Start: 01-10-2022 CT angiography of co ronary arteries DIAMOND SORTER-C Jorge Alberto Gar DIAMOND SORTER Work Phone: Start: 08-04-2000 Vasectomy JORGE ALBERTO CERVANTES TRANSFER SPECIALIST - BOX INSPECTOR Plan of Treatment Date Care Activity Detail Author Start: 05-23-2025 Retinol [Mass/volume] in Serum or Plasma [facility] Start: 05-23-2025 Tissue transglutaminase IgG Ab [Units/volume] in Serum [facility] Start: 05-23-2025 Patient encounter procedure Registered Clinical -Laboratory Work Phone: Start: 12-07-2024 Sigmoidoscopy flx w/biopsy single/multiple SIGMOIDOSCOPY AND BIOPSY [facility] Start: 12-07-2024 Patient discharge [facility] Patient Education Understanding Coronary Calcium Scan [facility] Work Phone: Patient referral [facility] Work Phone: Protein measurement [facility] Immunizations Immunization Date Immunization Notes Care Provider Fa cility 04-25-2021 SARS-CoV-2 (COVID-19 ) mRNA-1273 vaccine JORGE ALBERTO GAR TRANSFER SPECIALIST - BOX INSPECTOR [facility] Comment on above: Result Comment: 2021: [id number] 03-26-2021 SARS-CoV-2 (COVID-19 ) mRNA-1273 vaccine JORGE ALBERTO GAR TRANSFER SPECIALIST - BOX INSPECTOR [facility] Comment on above: Result Comment: 2020: [id number] 05-04-2017 influenza virus vaccine, unspecified formulation JORGE ALBERTO GAR TRANSFER SPECIALIST - BOX INSPECTOR [facility] 05-04-2015 influenza virus vaccine, unspecified formulation JORGE ALBERTO GAR TRANSFER SPECIALIST - BOX INSPECTOR [facility] 03-24-2015 tetanus toxoid, redu jerry diphtheria toxoid, and acellular pertussis vaccine, adsorbed JORGE ALBERTO GAR TRANSFER SPECIALIST - BOX INSPECTOR [facility] 06-04-2014 influenza virus vaccine, unspecified formulation JORGE ALBERTO GAR TRANSFER SPECIALIST - BOX INSPECTOR [facility] Payers Date Payer Category Payer Private Health Insurance [id number] 2024 Private Health Insurance [id number] 2024 Self-pay [id number] 1960 Unknown [id number] [id number]. [id number] Unknown Unknown [id number] Unknown [id number] Unknown . [id number] Unknown [id number] 2.16.8 [id number] Unknown [id number] 2.16.8 [id number] Unknown [id number] 2.16.8 [id number] Unknown [id number] 2.16.8 [id number] Unknown [id number] 2.16.8 [id number] Unknown [id number] 2.16.8 [id number] Unknown [id number] 2.16.8 [id number] Unknown [id number] 2.16.8 [id number] Unknown [id number] 2.16.8 [id number] Unknown [id number] 2.16.8 [id number] Social History Date Type Detail Facility Tobacco smoking stat us ARIS Unknown if ever smoked [facility] Work Phone: Start: 1960 Sex Assigned At Male [facility] Start: 10-07-2024 End: 05-16-2025 Tobacco smoking status ARIS Never smoked tobacco (finding) [facility] Comment on above: No smoke exposure Start: 01-27-2019 End: 10-20-2024 Sex Male (finding) [facility] Sexual Orientation Ella Jaramillo Atalissa Sex Male [facility] Goals Date Patient Goal Desired Activity /State Mental Status Date Assessment Result Facility 12-07-2024 Cognitive function Level Of Cons ciousness Sedated [facility] Work Phone: 12-07-2024 Cognitive function Patient Bala farnsworth Person;Place;Time [facility] Work Phone: 01-10-2022 Cognitive function Level Of Cons ciousness Awake;Alert [facility] Work Phone: Clinical Notes 10-07-2024 to 05-16-2025 Note Date & Type Note Facility 05-16-2025 Progress note [facility] 05-16-2025 Progress note Note Date/Time May 16, 2025 3:29pm [facility] [address] [place] [address] OFFICE VISIT Date of Service: 05/16/25 MR#: [id number] Acct: [id number] Name: DILSHAD PACK Rep #: [id number] : 1960 Provider: GONZALO Christianson Age/Sex: 65/M [place] [facility]: Signed Intake Vital Signs 12/30/24 08:04 05/16/25 15:00 Height 6 ft 2 in 6 ft 2 in Weight: 201 lb 6 oz 208 lb BMI 25.8 26.6 BP 157/71 H 136/72 H Blood Pressure Location Lt brachial Position Sitting Respiration 17 18 Pulse 64 80 Pulse Source Monitor Temp 97.8 F Temp Source Temporal Pulse Oximetry (%) 92 94 Oxygen Delivery Method room air room air Intake Visit Reasons: 4 M FU Chief Complaint: follow-up Radiology Clerk Required: No Accompanied by: Self Is patient in pain?: No Allergies Sulfa (Sulfonamide Antibiotics) Allergy (Verified 12/30/24 07:57) hives clarithromycin (From Biaxin) Adverse Reaction (Verified 12/30/24 07:57) diarrhea Medications ?Medication ?Instructions ?Recorded ?Confirmed ?Type multivitamin 1 tab PO DAILY 12/09/2005/04 History alprazolam 0.25 mg tablet 0.25 mg PO BID PRN anxiety 0 12/13/20 05/16/25 History fluticasone propionate 50 1 spray intranasal DAILY PRN 12/13/20 05/16/25 History mcg/actuation nasal allergy symptoms spray,suspension (Flonase Allergy Relief) diltiazem HCl 120 mg 60 mg PO BID 10/07/24 History capsule,extended release 24 hr pantoprazole 20 mg tablet,delayed 20 mg PO QDAY 05/16/25 History release tadalafil 5 mg tablet 5 mg PO QDAY 10/07/24 History zolpidem 10 mg tablet 10 mg PO QHS 10/07/24 History Have you fallen in the past year?: No PFSH Medical History Hx of sigmoidoscopy Wears glasses Anxiety Marijuana use Alcohol use Arthritis Dietary restriction Gastric reflux Non-smoker History of irregular heartbeat History of echocardiogram History of stress test Cardiology follow-up encounter Dizziness Epigastric pain Osteoarthritis IBS (irritable bowel syndrome) HTN (hypertension) Sciatica Essential (primary) hypertension Insomnia Chronic low back pain Anxiety and depression Hyperlipidemia Dilated aortic root Non-sustained ventricular tachycardia Surgical History History of discectomy History of vasectomy Family History Father Cancer throat Mother Hypertension Arthritis Grandfather Alcoholism Myocardial infarction Social History Smoking Status: Never smoker alcohol intake: current alcohol intake frequency: 3 or more drinks per day Alcohol type: hard liquor substance use type: marijuana HPI HPI Chief Complaint: follow-up Details: OV 01/03/2025 64-year-old male presents for follow-up of diarrhea. Labs revealed a low total IgA and negative TTG IgA. TTG IgG was performed due to his low total IgA, possibly rendering TTG IgA falsely normal. The results of his TTG IgG are elevated to 21 which suggests his diarrhea is possibly a component of celiac disease. He noted an improvement in diarrhea with a GFD. Sigmoidoscopy was performed 12/07/2024 and revealed slightly increased intraepithelial lymphocytes, suggesting a low-grade lymphocytic colitis. The patient's positive TTG IgG, in conjunction with increased intraepithelial lymphocytes in the colon on sigmoidoscopy, suggest a potential immune mediated process, possibly gluten sensitivity, contributing to his diarrhea. Ball colonic intraepithelial lymphocytes are not specific for celiac disease, there presents, when paired with positive TTG IgG raises the possibility of a gluten related or autoimmune driven colitis. We have discussed EGD as gold standard diagnostic for celiac disease. However, he has noted a significant improvement in stools with GFD. We discussed he would need to resume gluten daily for 4-6 weeks and then proceed with duodenal biopsy, being that these findings would not change the course of treatment we have elected to defer diagnostic EGD at this time. However, he willtaper pantoprazole and if he has recurrent HB symptoms we will proceed with EGD per ACG guidelines. Although these findings are non-specific individually, theirco-occurrence suggests an underlying immune activation, possibly triggered by gluten. The TTG IgG reflects a systemic immune response, while the increased colonic IELs point to local mucosal immune activation. Together, these findings support a shared pathophysiologic process that may explain the patient?s diarrhea. The patient will initiate a 12-week tapering course of Budesonide to address presumed immune-mediated colitis. He will also continue adherence to a strict gluten-free diet, given the positive TTG IgG and colonic intraepithelial lymphocytosis, which together suggest a gluten-sensitive enterocolitis as the likely contributor to his chronic diarrhea. Note: Mersive speech recognition industrial automation engineer software was used to create portions of this document. Sound-alike and misspelled words, as well as other industrial automation engineer errors may be contained in the documentation. Patient Instructions: Discontinue Colesevelam Start Budesonide 12 week taper Continue GFD After 6 weeks of Budesonide, if you remain asymptomatic in terms of diarrhea start Pantoprazole taper 20mg QOD x2 weeks and then discontinue Continue to use Pepcid Complete for breakthrough HB symptoms If you have increase in HB symptoms with discontinuing pantoprazole, resume 20mgdaily and will schedule EGD - Budesonide caused crazy dreams and loss of sleep at 9mg - he decreased to 6mg daily for a couple weeks and then was able to increase back to 9mg daily and complete taper as prescribed - c/o significantly increased appetite while on budesonide - c/o bloating, gas - c/o HB, indigestion worse with large meals, alcohol intake and red sauces - he does try to eat gluten free - reports if he eats out a few days in a row and eats gluten he will have increased frequency of stools - he if feeling much better overall - reporting he no longer fears running or taking the stairs due to fecal urgency ROS Const Constitutional: Positive for headache(s); No fatigue, fever(s) or weight change ENT ENT: Positive for headache(s); No difficulty swallowing Gastro GI: Positive for abdominal pain, bloating, change in bowel habits, diarrhea and heartburn; No belching, change in stool character, coffee ground emesis, constipation, cramping, difficulty swallowing, feeling full early, excessive flatus, incontinent of stools, Vomiting blood/hematemesis, Blood in stool, loose stools,Black,tarry stools, nausea/dyspepsia, pain with swallowing, vomiting or other Musc Musculoskeletal: Positive for joint pain, muscle cramps and restless legs Skin Skin: No yellowing of the eye or itchy eyes Neuro Neurology: Positive for headache(s) and restless legs Psych Psychiatric: No anxiety and No depression Endo Endocrine: No fatigue or weight change Aller/Imm Allergy/Immunologic: No itchy eyes Bernabe/Lymp Hematologic/Lymphatic: Positive for easy bruising; No easy bleeding Exam Const General: cooperative, healthy appearing, no acute distress and well developed Nutritional Appearance: average body habitus and well nourished Orientation: alert and oriented x3 [facility] Head: normocephalic Ears: hearing grossly normal bilaterally Mouth: moist mucous membranes Teeth and gingiva: dentition normal Eyes Conjunctivae: conjunctivae normal Sclera: sclerae normal Neck Neck: normal visual inspection, full ROM and trachea midline Resp Effort & Inspection: normal respiratory effort, able to speak in complete sentences and symmetric chest movement Neuro General: patient alert and patient oriented x3 Cranial Nerves: other (CN's grossly intact, non-focal exam) Cognition: normal cognition Speech: speech normal Gait: normal gait Psych Appearance: grossly normal and well kempt Affect: normal affect Attitude: cooperative Thought Process: normal Assessment and Plan Assessment and Plan (1) Diarrhea: Status: Acute Qualifiers: Diarrhea type: due to malabsorption Qualified Code(s): K90.9 - Intestinal malabsorption, unspecified; R19.7 - Diarrhea, unspecified (2) Celiac disease: Status: Acute (3) Lymphocytic colitis: Status: Acute Orders: Orders Vitamin D 1,25-Dihydroxy Today K52.832 - Lymphocytic colitis, K90.0 - Celiac disease, R19.7 - Diarrhea, unspecified Vitamin A, Retinol Today K52.832 - Lymphocytic colitis, K90.0 - Celiac disease,R19.7 - Diarrhea, unspecified t-Transglutaminase IgG Today K52.832 - Lymphocytic colitis, K90.0 - Celiac disease, R19.7 - Diarrhea, unspecified Vitamin B12 Today K52.832 - Lymphocytic colitis, K90.0 - Celiac disease, R19.7 - Diarrhea, unspecified Plan 65-year-old male presents for follow-up of diarrhea with elevated TTG IgG and colonic intraepithelial lymphocytosis. He was last seen in the office January it was recommended he follow a gluten-free diet and complete a 12-week budesonide taper. He reports resolution of diarrhea, and fecal urgency. He reported an increase in heartburn symptoms with discontinuing pantoprazole and has since resumed 20 mg daily. He continues to experience breakthrough symptomswith trigger foods (red sauces, pizza, large meals) and will trial Pepcid Complete as needed. He also complains of bloating and flatulence. He will resume probiotic daily and complete labs at his convenience. If symptoms are persisting I will increase pantoprazole to 40 mg daily for 8 to 12 weeks and monitor symptoms. Patient Instructions: Resume Align daily for gas/bloating Continue pantoprazole 20mg daily Pepcid complete for breakthrough symptoms If bloating/gas are persisting despite addition of probiotic, will increase pantoprazole to 40mg daily for 8-12 weeks and monitor symptoms Follow- GFD Complete labs Coding Level of Care Code Off vis,est,level 3 Diagnoses Diarrhea due to malabsorption K90.9; R19.7 Diarrhea type: due to malabsorption Celiac disease K90.0 Lymphocytic colitis K52.832 Clinical Quality Measures Falls Risk Screening/Assistive Devices Have you fallen in the past year?: No Smoking Screening Smoking Status: Never smoker 05/16/25 1536 <Electronically signed by Kirsten SÁNCHEZ> Date _ Kirtsen Christianson NP-C Sofi Signature: Date (if applicable) CC: ~ [facility] Work Phone: 1(208) 613-647305-06-2025 [facility] Medical Records Department [address] [place] [address] History Physical Exam 12/07/2449 MR#: [id number] Acct: [id number] Name: DILSHAD PACK Rep #: [id number] : 1960 64 From: Tae Gerber DO PCP: GONZALO Coyle Status:REG [facility] Location: [place] [address] HPI - General General Date of Admission: 12/07/24 Date of Service: 12/07/24 Chief Complaint: fecal incontence HPI Narrative DILSHAD PACK, is a 64 M who - reports symptoms began February 2024 after eating out at night - fecal continence - ever since then he has had diarrhea - he typically has 3 BM every morning and then 20 minutes after every meal, snack or even a drink he has to have a BM - first BM of day is usually half baked then followed by loose/watery stools - denies any bleeding - denies any pain - denies any fevers or night sweats - reports he lost 25lbs towards the end of 2023 but has regained this weight - Colesevelam 3 tabs BID - 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 20mg daily - without Colesevelam - total blow out and explosive - denies any family h/o colon CA, crohns or colitis - denies any family h/o celiac disease - Meloxicam 15mg QD [facility]N [facility] Medical History Wears glasses Anxiety Marijuana use Alcohol use Arthritis Dietary restriction Gastric reflux Non-smoker History of irregular heartbeat History of echocardiogram History of stress test Cardiology follow-up encounter Dizziness Epigastric pain Osteoarthritis IBS (irritable bowel syndrome) HTN (hypertension) Sciatica Essential (primary) hypertension Insomnia Chronic low back pain Anxiety and depression Hyperlipidemia Dilated aortic root Non-sustained ventricular tachycardia Home Medications ???Medication ???Instructions ???Recorded ???Last Taken ???Type escitalopram oxalate 20 mg tablet 20 mg PO DAILY 12/09/20 12/06/24 07:00 History multivitamin 1 tab PO DAILY 12/09/20 12/05/24 H istory alprazolam 0.25 mg tablet 0.25 mg PO BID PRN anxiety 1 Unknown History fluticasone propionate 50 1 spray intranasal DAILY PRN 12/13 Unknown History mcg/actuation nasal allergy symptoms spray,suspension (Flonase Allergy Relief) colesevelam 625 mg tablet 1,875 mg PO BID 10/07/24 12/06/24 07:00 History diltiazem HCl 120 mg 60 mg PO BID 10/07/24 12/06/24 07: 00 History capsule,extended release 24 hr meloxicam 15 mg tablet 15 mg PO QDAY 10/07/24 Unknown His tory pantoprazole 20 mg tablet,delayed 20 mg PO QDAY 10/07/24 12/05/24 H istory release tadalafil 5 mg tablet 5 mg PO QDAY 10/07/24 Unknown Hist ory zolpidem 10 mg tablet 10 mg PO QHS 10/07/24 12/06/24 His tory Allergy/AdvReac Type Severity Reaction Status Date / Time Sulfa (Sulfonamide Allergy hives Verified 12/07/24 05:48 Antibiotics) clarithromycin (From Biaxin) AdvReac diarrhea Verified 12/07/24 05:48 Family History Father Cancer throat Mother Hypertension Arthritis Grandfather Alcoholism Myocardial infarction Surgical History History of discectomy History of vasectomy Social History Smoking Status: Never smoker alcohol intake: current alcohol intake frequency: 3 or more drinks per day Alcohol type: hard liquor substance use type: marijuana ROS Constitutional Constitutional: Denies fatigue, fever(s), poor appetite, weight gain or weight loss Gastrointestinal Gastrointestinal: Denies belching, bloating, change in bowel habits, change in stool character, chewing difficulty, coffee ground emesis, constipation, cramping, diarrhea, dyspepsia, dysphagia, early satiety, excessive flatus, fecal incontinence, heartburn, hematemesis, hematochezia, hemorrhoids, loose stools, melena, nausea, odynophagia, rectal bleeding, tenesmus, vomiting or weight changes Vital Signs Vital Signs Vital Signs: 12/07/24 05:51 12/07/24 05:52 12/07/24 06:39 Temperature 98.1 F 98.1 F Temperature Source Temporal Pulse Rate 64 64 Respiratory Rate 16 16 Respiratory Pattern Normal Blood Pressure 156/78 H 156/78 H Blood Pressure Mean 104 Blood Pressure Source Monitor Blood Pressure Position Semi-Fowlers Blood Pressure Location Left Arm Pulse Ox 98 98 Oxygen Delivery Method Room Air Room Air Weight Weight: 199 lb Body Mass Index (BMI) 25.5 Physical Exam Const alert, oriented x3, no apparent distress and healthy appearing General Appearance: cooperative GI normal to inspection, nondistended, normoactive bowel sounds, soft to palpation, non-tende (more content not included)...[facility]03-06-2025 Evaluation note* Diagnosis Onset Date Resolution Status Admit Date Fecal urgency acute October 07, 2024 1:45pm Irritable bowel syndrome wit h diarrhea acute October 07, 2024 1:45pm Diarrhea noneactive October 07 1:45pm [facility] Work Phone: 1(574) 387-562203-06-2025 Evaluation note* Diagnosis Onset Date Resolution Status Admit Date Fecal urgency acute October 07, 2024 1:45pm Irritable bowel syndrome wit h diarrhea acute October 07, 2024 1:45pm Diarrhea noneactive October 07 1:45pm Diarrhea acute December 07, 2024 5:11am Fecal urgency acute December 07 5:11am [facility] Work Phone: Evaluation + Plan note Future Appointments Appointment Date:05/26/2025 01:00:00 PM Scheduled Provider:JORGE ALBERTO GAR APRN, CNP Location:[facility] Appointment Type:PC OV Controlled Medication Future Scheduled Tests Laboratory* Clostridium difficile (PCR) 08/26/24 * Giardia Antigen 04/22/24 * C-Reactive Protein 07/11/24 * Prostate Specific Antigen 02/26/24 * Stool Culture 04/22/24 * Urine Drug Screen (AO/AM/AAH Only) 11/25/24 * A1C Hemoglobin 02/26/24 * Complete Blood Count 07/11/24 * Complete Blood Count 04/22/24 * Lipid Profile 02/26/24 * Albumin/Creatinine Ratio, Random Urine 02/26/24 * Fecal Leukocytes 04/22/24 * Complete Metabolic Panel 07/11/24 * Complete Metabolic Panel 02/26/24 * Complete Metabolic Panel 04/22/24 Radiology* XR Chest 2 Views (PA & Lateral) 07/11/24 [facility] Evaluation noteNo assessment information available [facility] Work Phone: Evaluation note* Diagnosis Onset Date Resolution Status Admit Date Celiac disease acute May 162024 2:48pm Diarrhea acute May 16, 2025 2:48pm Lymphocytic colitis acute Octob er 2024 2:48pm [facility] Work Phone: Hospital course Narrative No data available for this section [facility] Hospital Discharge instructions No data available for this section [facility] Progress note No data available for this section [facility] Reason for referral (narrative)No reason for referral information [facility] Work Phone: Summary Purpose Family History No Family History Records Found Relationship Condition Age at Onset Recorded Date/T julio c father Malignant neoplasm Unknown Relationship Condition Age at Onset Recorded Date/T julio c father Malignant neoplasm Unknown mother Hypertension Unknown Arthritis Unknown grandfather Alcoholism Unknown Myocardial infarction Unknown Advance Directives No Advanced Directives Records Found Advance Directive Response Recorded Date/ Time Do you have a Healthcare Power of Hospital Ward Clerk? No December 03, 2024 1:58pm Chief Complaint and Reason for Visit Chief Complaint HYPERTENSION, PALPIT ATIONS, CHEST PAIN HYPERTENSION, PALPITATIONS, CHEST PAIN Chief Complaint Admit Date Diarrhea October 07, 2024 1:45 pm E ORDER October 07, 2024 2:53 pm Reason for Visit Admit Date Fecal urgency October 07, 2024 1:45 pm Irritable bowel syndrome with diarrhea M arch 2024 1:45pm Diarrhea October 07, 2024 1:45 pm Chief Complaint Admit Date Diarrhea October 07, 2024 1:45 pm E ORDER October 07, 2024 2:53 pm Test Result December 30, 2024 7:47a m Reason for Visit Admit Date Fecal urgency October 07, 2024 1:45 pm Irritable bowel syndrome with diarrhea M arch 2024 1:45pm Diarrhea October 07, 2024 1:45 pm Diarrhea December 07, 2024 5:11am Fecal urgency December 07, 2024 5:11am Chief Complaint Admit Date 4 M FU May 16, 2025 2 :48pm INT LAB ORDERS May 23, 2025 2 :47pm Reason for Visit Admit Date Celiac disease May 16, 2025 2 :48pm Diarrhea May 16, 2025 2 :48pm Lymphocytic colitis May 16, 2025 2 :48pm Additional Source Comments (unrecognized sect ion and content) No Status Records FoundNo Status Records FoundNo Status Records Found INFORMATION SOURCE (unrecogn ized section and content) DATE CREATED AUTHOR 01/27/2018 [facility] DATE CREATED AUTHOR AUTHOR'S ORGANIZ ATION 03/02/2025 [facility] DATE CREATED AUTHOR AUTHOR'S ORGANIZ ATION 06/05/2025 [facility] Goals (unrecognized section and content) Goals may be documented in a n alternate sectionGoals may be documented in an alternate sectionGoals may be documented in an alternate sectionGoals may be documented in an alternate sectionGoals may be documented in an alternate sectionGoals may be documented in an alternate section No data available for this sectionGoals may be documented in an alternate section Care Teams (unrecognized sec tion and content) Team Status: Active Member Role Status Dates Dr. Sergei Sanchez MD Family Provider Active Jorge Alberto Gar DI[employer]OND SORTER, DIAM[employer] S[employer]TER-C Primary Care Provider Active Team Status: Inactive Member Role Status Dates Jorge Alberto Gar DIAMOND SORTER, DI[employer] S[employer]TER-C Primary Care Provider, Attending Provider, Referring Provider Active Team Status: Inactive Member Role Status Dates Jorge Alberto Gar DIAMOND SORTER, DIAMOND SORTER-C Primary Care Provider Active Start: August End: September 03, 2024 Jorge Alberto Gar DIAMOND SORTER, DI[employer]OND SORTER-C Attending Provider Active Start: September 03, 2024 End: September 03, 2024 Jorge Alberto Gar DIAMOND SORTER, DIAMOND SORTER-C Referring Provider Active Start: September 03, 2024 End: September 03, 2024 Team Status: Inactive Member Role Status Dates Jorge Alberto Gar DIAMOND SORTER, DIAMOND SORTER-C Primary Care Provider Active Start: October 07, 2024 End: October 07, 2024 Jorge Alberto Gar DIAMOND SORTER, DIAMOND SORTER-C Referring Provider Ac tive Start: October 07, 2024 End: October 07, 2024 Kirsten Christianson DI[employer] S[employer]TER-C Attending Provider Active Start: October 07, 2024 End: October 07, 2024 Team Status: Inactive Member Role Status Dates Jorge Alberto Gar DIAMOND SORTER, DIAMOND SORTER-C Primary Care Provider Active Start: October 07, 2024 End: October 07, 2024 Kirsten Christianson DI[employer] SORTER-C Attending Provider Active Start: October 07, 2024 End: October 07, 2024 Kirsten Christianson DI[employer] SORTER-C Referring Provider Active Start: October 07, 2024 End: October 07, 2024 Team Status: Inactive Member Role Status Dates Jorge Alberto Gar DIAMOND SORTER, DIAMOND SORTER-C Primary Care Provider Active Start: November 02, 2024 End: November 02, 2024 Kirsten Christianson DI[employer] SORTER-C Attending Provider Active Start: November 02, 2024 End: November 02, 2024 Kirsten Christianson DI[employer] S[employer]TER-C Referring Provider Active Start: November 02, 2024 End: November 02, 2024 Team Status: Inactive Member Role Status Dates Jorge Alberto Gar DIAMOND SORTER, DIAMOND SORTER-C Primary Care Provider Active Start: November 08, 2024 End: November 08, 2024 Kirsten Christianson DI[employer] S[employer]TER-C Attending Provider Active Start: November 08, 2024 End: November 08, 2024 Kirsten Christianson DI[employer] S[employer]TER-C Referring Provider Active Start: November 08, 2024 End: November 08, 2024 Team Status: Active Member Role Status Dates Jorge Alberto Gar DIAMOND SORTER, DIAMOND SORTER-C Primary Care Provider Active Team Status: Inactive Member Role Status Dates Jorge Alberto Gar DIAMOND SORTER, DIAMOND SORTER-C Primary Care Provider Active Start: December 07, 2024 End: December 07, 2024 Jorge Alberto Gar NP, [employer]TER-C Referring Provider Ac tive Start: December 07, 2024 End: December 07, 2024 Dr. Tae Gerber DO Attending Provider Active Start: December 07, 2024 End: December 07, 2024 Team Status: Active Member Role Status Dates Jorge Alberto Gar DIAMOND SORTER, DIAMOND SORTER-C Primary Care Provider Active Start: December 07, 2024 Jorge Alberto Gar NP, [employer] S[employer]TER-C Referring Provider Ac tive Start: December 07, 2024 Dr. Tae Gerber DO Attending Provider Active Start: December 07, 2024 Dr. Tae Gerber DO Other Provider Active St art: December 07, 2024 Team Status: Inactive Member Role Status Dates Jorge Alberto Gar DIAMOND SORTER, DIAMOND SORTER-C Primary Care Provider Active Start: December 30, 2024 End: December 30, 2024 Jorge Alberto Gar DIAMOND SORTER, DIAMOND SORTER-C Referring Provider Ac tive Start: December 30, 2024 End: December 30, 2024 GONZALO Wing Attending Provider Active Start: December 30, 2024 End: December 30, 2024 Team Status: Active Member Role/Relationship Status Dates Jorge Alberto Gar DIAMOND SORTER, DIAMOND SORTER-C Primary care physicia n Active Team Status: Inactive Member Role/Relationship Status Dates Jorge Alberto Gar NP, [employer] [employer]-C Primary care physician Active Start: May 162024 End: May 16, 2025 Jorge Alberto Gar NP, [employer]-C Referring Provider Active Start: May 16, 2025 End: May 16, 2025 GONZALO Wing Attending physician Active Start: May 16, 2025 End: May 16, 2025 Team Status: Active Member Role/Relationship Status Dates Jorge Alberto Gar NP, [employer]TER-C Primary care physician Active Start: May 232024 GONZALO Wing Attending physician Active Start: May 23, 2025 GONZALO Wing Referring Provider Active Start: May 23, 2025 FOR RECORDS PERTAINING TO PATIENTS WHO ARE OR HAVE BEEN ENROLLED IN A CHEMICAL DEPENDENCY/SUBSTANCEABUSE PROGRAM, SOME INFORMATION MAY BE OMITTED. This clinical summary was aggregated from multiple sources. Caution should be exercised in using it in the provision of clinical care. This summary normalizes information from multiple sources, and as a consequence, information in this document may materially change the coding, format and clinical context of patient data. In addition, data may be omitted in some cases. CLINICAL DECISIONS SHOULD BE BASED ON THE PRIMARY CLINICAL RECORDS. [email or web address] [facility]. provides no warranty or guarantee of the accuracy or completeness of information in this document.
[2025-07-31 16:13] LABS: Mucous, Urine 0 SEEN /hpf (<or=2+); Squamous Epithelial Cells - UA 0 SEEN /hpf (0-5)
[2025-07-31 16:17] LABS: Color, Urine Straw (Yellow); Glucose, Dipstick Normal (Normal); Ketone-Dipstick Negative (Negative); Leukocyte Esterase-Dipstick Negative /ul (Negative); Nitrite-Dipstick Negative (Negative); Occult Blood-Urine 50 /ul (Negative); Protein-Dipstick Negative (Negative); Specific Gravity, Urine 1.010 (1.002-1.030); Urine Bilirubin Dipstick Negative (Negative)
[2025-07-31 16:28] LABS: Red Blood Cells-Urine 0-5 SEEN /hpf (0-5)
[2025-07-31 16:43] VITALS: BP 141/77; PULSE 77; RESP 16; O2SAT 100
[2025-07-31] MEDS: 0.9% Normal Saline (1000mL) 1,000 ML 999 ML IV (16:49)
[2025-07-31 18:00] VITALS: BP 154/76; PULSE 70; RESP 18; O2SAT 97
[2025-07-31] MEDS: Piperacil/Tazobactam 4.5 GM in 0.9% Normal Saline (100mL MB+) 100 ML IV (18:46)
[2025-07-31 18:49] VITALS: BP 168/90; PULSE 64; RESP 18; TEMP 36.4; O2SAT 94
--- OUTSIDE RECORDS SUMMARY | 2025-07-31 18:50 | XMS RPT_ITS | CCD ---
Author Organization [facility] Inform ion Partnership [facility] Care Team Providers Care Browning Processor Name Role Phone PROVIDER, UNKNOWN Unavailable Unavailable Mercedes Gold Unavailable Unavailable Cong MARKET DEVELOPMENT SPECIALIST, MARKET DEVELOPMENT SPECIALIST-C Jorge Alberto Arauz Primary Care Pr ovider Fish MARKET DEVELOPMENT SPECIALIST, MARKET DEVELOPMENT SPECIALIST-C Jessica Referring Provider Fish MARKET DEVELOPMENT SPECIALIST, MARKET DEVELOPMENT SPECIALIST-C Jessica Other Provider Dr. Ran Boss Attending Provider Cong MARKET DEVELOPMENT SPECIALIST-CJorge Alberto Primary Care Provi denise Cong [place]-CJorge Alberto Attending Provider Cong [place]-CJorge Alberto Referring Provider Sammy [place]-CKirsten Attending Provider Sammy [place]-CKirsten Referring Provider Friend Dr. Tae ACKERMAN Attending Provider Friend Dr. Tae ACKERMAN Other Provider JORGE ALBERTO SELF APRN, CNP Primary Care Phys ician JORGE ALBERTO SELF APRN, CNP Attending U JORGE ALBERTO Otoole APRN, CNP Primary Care U tom Gar MARKET DEVELOPMENT SPECIALIST-CJorge Alberto Primary Care Physi neeta Cong MARKET DEVELOPMENT SPECIALIST-CJorge Alberto Referring Provider Sammy [place]-CKirsten Attending Physician [phone] Sammy [place]-CKirsten Referring Provider Sammy, Kirsten Attending Unavailable Cong MARKET DEVELOPMENT SPECIALIST, Jorge Alberto Davonte Primary Care Unav ailable Sammy, Kirsten Referring Unavailable Cong MARKET DEVELOPMENT SPECIALIST, Jorge Alberto Arauz Primary Care Unav ailable Cong MARKET DEVELOPMENT SPECIALIST, Jorge Alberto Arauz Attending Unav ailable Cong MARKET DEVELOPMENT SPECIALIST, Jorge Alberto Arauz Referring Unav ailable Sammy, Kirsten Referring Unavailable Willacy MARKET DEVELOPMENT SPECIALIST, Jorge Alberto Arauz Primary Care Unav ailable Sammy, Kirsten Attending Unavailable Sammy, Kirsten Attending Unavailable Willacy MARKET DEVELOPMENT SPECIALIST, Jorge Alberto Pritchardnis Primary Care Unav ailable Sammy, Kirsten Referring Unavailable Sammy, Kirsten Attending Unavailable Willacy MARKET DEVELOPMENT SPECIALIST, Jorge Alberto Arauz Primary Care Unav ailable Sammy, Kirsten Referring Unavailable Willacy MARKET DEVELOPMENT SPECIALIST, Jorge Alberto Arauz Primary Care Unav ailable Friend, Tae Attending Unavailable Willacy MARKET DEVELOPMENT SPECIALIST, Jorge Alberto Arauz Referring Unav ailable Willacy MARKET DEVELOPMENT SPECIALIST, Jorge Alberto Arauz Primary Care Unav ailable Friend, Tae Consulting Unavailable Friend, Tae Attending Unavailable Cong MARKET DEVELOPMENT SPECIALIST, Jorge Alberto Arauz Referring Unav ailable Cong MARKET DEVELOPMENT SPECIALIST, Jorge Alberto Arauz Primary Care Unav ailable Sammy, Kirsten Attending Unavailable Willacy MARKET DEVELOPMENT SPECIALIST, Jorge Alberto Arauz Referring Unav ailable Willacy MARKET DEVELOPMENT SPECIALIST, Jorge Alberto Arauz Primary Care Unav ailable Sammy, Kirsten Attending Unavailable Cong MARKET DEVELOPMENT SPECIALIST, Jorge Alberto Arauz Referring Unav ailable Willacy MARKET DEVELOPMENT SPECIALIST, Jorge Alberto Arauz Primary Care Unav ailable Sammy, Kirsten Attending Unavailable Cong MARKET DEVELOPMENT SPECIALIST, Jorge Alberto Arauz Referring Unav ailable Allergies Allergy Classification Reported Allergen(s) Allergy Type Date of Onset Reaction(s) Facility (9 sources) Clarithromycin; Translations: [clarithromycin] Drug Allergy 1 Diarrhea (finding) [facility] (9 sources) Sulfonamides (Antibiotic); Translations: [Sulfa (Sulfonamide Antibiotics)] Allergy to substance 1 hives [facility] (1 source) Sulfonamide; Translations: [sulfa drugs] Drug allergy Weal (disorder) [facility] (1 source) Clarithromycin Drug Allergy 5 [facility] Repository Medications Current Medications Medication Drug [...] 02/24/2025, # 60 tab(s), 2 Refill(s), Pharmacy: [facility], Anxiety and depression Medication management [...] BID, # 180 tab(s), 3 Refill(s), Pharmacy: [facility], 175.3, cm, 08/11/24 15:47:00 EST, [...] qDay, # 30 tab(s), 2 Refill(s), Pharmacy: [facility], CAPRI, 185, cm, 02/24/25 14:58:00 [...] qDay, # 30 tab(s), 2 Refill(s), Pharmacy: [facility], OA (osteoarthritis), 185, cm, 02/24/25 [...] qDay, # 30 tab(s), 2 Refill(s), Pharmacy: [facility], GERD (gastroesophageal reflux disease), 185, [...] qDay, # 30 tab(s), 2 Refill(s), Pharmacy: [facility], ED (erectile dysfunction), 185, cm, [...] 02/24/2025, # 30 tab(s), 2 Refill(s), Pharmacy: [facility], Insomnia Medication management contract signed [...] VIT A, RETINOL 61.5 ug/dL Normal 22.0-69.5 [facility] Comment on above: Result Comment: Refe rence intervals for vitamin A determined from [facility] internal studies. Individuals with vitamin A less than 20 ug/dL are considered vitamin A deficient and those with serum concentrations less than 10 ug/dL are considered severely deficient. This test was developed and its performance characteristics determined by [facility]. It has not been cleared or approved by the Food and Drug Administration. Performed By: #### L 3300.0960, L3400.0920, L3410.2970, L503.0106 #### [facility] [address] [place], [place], [id number] t-Transglutaminase IgGon tTG IGG 13 U/mL Abnormal 0-5 [facility] Comment on above: Result Comment: Nega tive 0 - 5 Weak Positive 6 - 9 Positive >9 Performed at: [address] [id number] Powerplant Operator: Gina Vivar MD, Phone: [phone] Performed at: [address] [id number] Powerplant Operator: Alexys Romo PhD, Phone: [phone] Performed By: #### L 3300.0960, L3400.0920, L3410.2970, L503.0106 #### [facility] [address] [place], [place], [id number] Vitamin D 1,25-Dihydroxyon 1 VIT D 1,25 DIHY 51.3 pg/mL Normal 24.8-81.5 [facility] Comment on above: Result Comment: Perf ormed at: [address] [id number] Powerplant Operator: Gina Vivar MD, Phone: [phone] Performed By: #### L 3300.0960, L3400.0920, L3410.2970, L503.0106 #### [facility] [address] [place], [address] Serum or plasma calcitriol m easurement (mass/volume)Ordered By: Kirsten Christianson on 05-23-2025 1,25-dihydroxyvitamin D3 [Mass/Vol] 51.3 pg/mL 24.8-81.5 [facility] Comment on above: Performed at: [address], [place] [id number] Director: Gina Vivar MD, Phone: [phone] Vitamin B12on 05-23-2025 Cobalamin (Vitamin B12) [Mass/Vol] 476 pg/mL Normal 180-914 [facility] Comment on above: Performed By: #### L 3300.1743, L3400.0386, S4414.5936, L503.1863 #### [facility] [address] [place], [address] Vitamin B12 ser/plasOrdered By: Kirsten Christianson on 05-23-2025 Cobalamin (Vitamin B12) [Mass/Vol] 476 pg/mL 180-914 [facility] Gastroenterology Visit Repor ton 05-16-2025 Gastroenterology Visit Report [facility] [address] [place] [address] OFFICE VISIT Date of Service: 05/16/25 MR#: [id number] Acct: [id number] Name: DILSHAD APCK Rep #: [id number] : 1960 Provider: GONZALO oates Age/Sex: 65/M Location: [facility] Status: Signed Intake Vital Signs 12/30/24 08:04 [...] Reasons: 4 M FU Chief Complaint: follow-up Physician Assistant Required: No Accompanied by: Self Is patient [...] course of (more content not included)... Normal [facility] LABORATORYOrdered By: Brittany Coto on 02-24-2025 [...] Glenda 02-24-2025 Amphetamine (u) Negative Normal Negative [facility] Comment on above: Performed By: #### U DRUG #### [address] [address] Barbiturate (u) Negative Normal Negative [facility] Comment on above: Performed By: #### U DRUG #### [address] [address] Benzodiazepine (u) Positive Abnormal Negative [facility] Comment on above: Performed By: #### U DRUG #### [address] [address] Cannabinoid (u) Negative Normal Negative [facility] Comment on above: Performed By: #### U DRUG #### [address] [address] Cocaine Ql (U) Negative Normal Negative [facility] Comment on above: Performed By: #### U DRUG #### [address] [address] Methadone Ql (U) Negative Normal Negative [facility] Comment on above: Performed By: #### U DRUG #### [address] [address] Opiate (u) Negative Normal Negative [facility] Comment on above: Performed By: #### U DRUG #### [address] [place] [address] PCP (u) Negative Normal Negative [facility] Comment on above: Performed By: #### U DRUG #### [address] [address] Urine Drugs screened: See Below Normal L [facility] Comment on above: Result Comment: This drug [...] ONLY. Performed By: #### U DRUG #### [address] [address] Gastroenterology Visit Repor ton 12-30-2024 Gastroenterology Visit Report [facility] [address] [place] [address] OFFICE VISIT Date of Service: 12/30/24 MR#: [id number] Acct: [id number] Name: DILSHAD PACK Rep #: [id number] : 1960 Provider: GONZALO oates Age/Sex: 64/M Location[place] [facility] Status: Signed Intake Vital Signs 10/07/24 14:09 [...] didn't seem to bother him. Test results. [facility] Medical History (Updated 12/30/24 @ 08:30 by [...] February 2024 after dining out at [place]. Diarrhea was explosive and experiencing episodes of fecal incontinence. Stool negative for C. Diff 09/03/2024. Giardia, stool culture, lactoferrin negative April 2024. Screening colonoscopy was unremarkable June 2024 ([facility]). Despite starting Colesevelam 3 tabs BID [...] microscopic colitis Celiac serologies Calprotectin Xifaxan to [facility] Sigmoidoscopy 12/07/2024 - slightly increased intraepithelial [...] is schedule (more content not included)... Normal [facility] Flex Sigmoidoscopy Reporton 12-07-2024 Flex Sigmoidoscopy Report [facility] Medical Records Department [address] [place] [address] Flex Sigmoidoscopy Report MR#: [id number] Acct: [id number] Name: DILSHAD PACK Rep #: [id number] : 1960 64 From: Tae Friend DO PCP: Jorge Alberto Gar NP-C Status:REG [facility] Patient Name: Dilshad Pack Procedure Date: 12/07/2024 [...] present medications. Procedure Code(s): --- Professional --- 72449, Sigmoidoscopy, flexible; with biopsy, single or multiple CPT copyright 2021 [employer]. All rights reserved. The codes documented in this report are preliminary and upon stripper and opaquer apprentice review may be revised to meet current compliance requirements. Tae Gerber DO 12/07/2024 7:08:13 AM This report has been signed electronically. Number of Addenda: 0 Note Initiated On: 12/07/2024 6:11 AM 12/07/24707 Date Tae Gerber DO Cosigner Signature: Date (if indicated) CC: MARKET DEVELOPMENT SPECIALIST-C Jorge Alberto aGr; Tae Gerber DO Date Dictated: 12/07/24610 Date Transcribed: Goodyear Welter: LISA Signed [facility] MR/POSTOP.[facility] 12-07-2024 MR/POSTOP.[facility] Medical Records Department [address] [place] [address] Anesthesia Postop Eval I 12/07/24712 MR#: [id number] Acct: [id number] Name: DILSHAD PACK Rep #: [id number] : 1960 64 From: Anish Clay PCP: GONZALO Coyle Status:REG SDC Y Race: C Location: [place] [address] Anesthesia: Postop Eval I Current Vital Signs [...] Anish Yuenigner Signature: Date CC: Signed Normal [facility] MR/GAXGZNGI2de 12-07-2024 [facility] Medical Records Department [address] [facility] [place] [address] Anesthesia Postop Eval II 12/07/2439 MR#: [id number] Acct: [id number] Name: SIRENADILSHAD Rep #: [id number] : 1960 64 From: Isaac Nesbitt MD PCP: Jorge Alberto Gar, MARKET DEVELOPMENT SPECIALIST-C Status:REG [facility] Y Race: C Location: [place] [address] Anesthesia Postop Eval I Sum Postop Eval [...] Vomiting: No Complications Anesthesia Complication: No 12/07/24 07 Date Isaac Holly Signature: CC: Signed Normal [facility] Surgery Specimen Level Santi 12-07-2024 Surgery Specimen Level IV Patient Age/Sex Location Account Attending Physician DILSHAD PACK 64/M EN [id number] Tae Gerber, DO Specimen: [id number] Received: 12/07/24 Status: DYAN Reddy Num: [id number] Spec Type: COLON BX Subm Dr: Tae [...] in aggregate. Submitted in toto in A1. [facility] 12-07-2024 [facility]:[address] Patient Age/Sex Location Account Attending Physician DILSHAD PACK/Gael EN [id number] Tae Friend, DO Signed (signature on file) Dr. Emma Goodman MD 12/14/24 1025 Normal [facility] Comment on above: Performed By: #### L 3410.2920, L3200.1400 #### [facility] [address] [place], [place], [address] MR/Keyon 12-03-2024 /SARY.[facility] Medical Records Department [address] [place] [address] PAT - Anesthesia 12/03/24 1449 MR#: [id number] Acct: [id number] Name: SIRENADILSHAD Rep #: [id number] : 1960 64 From: Harsha Vila MD PCP: Jorge Alberto Gar MARKET DEVELOPMENT SPECIALISTCarson Status:PRE [facility] Y Race: C Location: EN Pre-Assessment Diagnosis/Proposed Procedure Planned Operative Procedure(s): FLEX SIGMOID Anesthesia History Anesthesia History - baggage screener: Anesthesia History - baggage screener Hx Hospitalization No 12/03/24 13:58 Any Problems [...] take am of surgery PONV PONV - baggage screener: PONV - baggage screener Female No 12/03/24 13:58 HX of Motion [...] 10/07/24 14:09 Respiratory Assessment Respiratory Assessment - baggage screener: Respiratory Tract Infection Hx - baggage screener Hx Respiratory Tract Infection No 12/03/24 13:58 STOP Sleep Apnea STOP Sleep Apnea - baggage screener: STOP Sleep Apnea - baggage screener Hx Hypertension Yes 12/03/24 13:58 Hx Sleep [...] Tobacco Use History Tobacco Use History - baggage screener: Tobacco Use History - baggage screener Tobacco Use Smoking Status Never smoker 12/03/24 13:58 Hx Tobacco Use No 12/03/24 13:58 Years Smoking Packs Smoked per Day Smoking Cessation Date was within the last 15 years Hx Smoking Cessation Date Hx Smoking Cessation Counseling Hematologic Medial History Hematologic Hx - baggage screener: Hematologic Medical 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 Specify any problems Hx of Preganancy in last 3 N/A 12/03/24 13:58 Months Nurse Filling Out Transfusion [facility] 12/03/24 13:58 Questions: Date: 12/03/24 12/03/24 13:58 Time: 13:58 12/03/24 13:58 Patient unable to answer at this time (ie. confused, unrespo /Reproduction History /Reproductive History - baggage screener: /Reproductive Hx- baggage screener Hx Now No 12/03/24 13:58 Gestational Age (in weeks): EDC: Hx Hx Para Hx Section [facility] Medical History Wears glasses Anxiety Marijuana use [...] symptoms spray,suspensi (more content not included)... Normal [facility] Calprotectin, Stoolon [address] 6 ug/g Normal 0-120 [facility] Comment on above: Result Comment: Conc entration Interpretation Follow-Up < 5 - 50 ug/g Normal None >50 -120 ug/g Borderline Re-evaluate in 4-6 weeks >120 ug/g Abnormal Repeat as clinically indicated Performed at: - [facility] [id number] Powerplant Operator: Gina Vivar MD, Phone: [phone] Performed By: #### L 7000.0700 #### [facility] [address] [place], [address] Calprotectin stoolOrdered By : Kirsten Christianson on 11-08-2024 Calprotectin stool 6 ug/g 0-[address] [facility] Comment on above: Concentration Interp retation Follow-Up< 5 - 50 ug/g Normal None>50 -120 ug/g Borderline Re-evaluate in 4-6 weeks >120 ug/g Abnormal Repeat as clinically indicatedPerformed at: [facility] [address] [id number] Director: Gina Vivar MD, Phone: [phone] Stool Calprotectin 6 ug/g 0-[address] [facility] Comment on above: Concentration Interp retation Follow-Up< 5 - 50 ug/g Normal None>50 -120 ug/g Borderline Re-evaluate in 4-6 weeks >120 ug/g Abnormal Repeat as clinically indicatedPerformed at: [facility] [address] [id number] Director: Gina Vivar MD, Phone: [phone] t-Transglutaminase IgGon tTG IGG 21 U/mL Abnormal 0-5 [facility] Comment on above: Result Comment: Nega tive 0 - 5 Weak Positive 6 - 9 Positive >9 Performed at: - [facility] [id number] Powerplant Operator: Alexys Romo PhD, Phone: [phone] Performed By: #### L 3410.2970, L3410.9998 #### [facility] [address] [place], [address] [facility] Misc.on 11-04-2024 [facility] Misc. COMMENT Normal . [facility] Comment on above: Order Comment: 35135 [id number] RED RT Result Comment: Test Ordered: [id number] Antigliadin Abs, IgG Deamidated Gliadin Abs, IgG 8 units Reference Range: 0-19 Negative 0 - 19 Weak Positive 20 - 30 Moderate to Strong Positive >30 Performed at: [facility] [id number] Powerplant Operator: Alexys Romo PhD, Phone: [phone] Performed By: #### L 3410.2970, L3410.9998 #### [facility] [address] [place], [place], [address] No Panel InformationOrdered By: Kirsten Christianson on 11-02-2024 Tissue Transglutaminase IgG Ab 21 U/mL High 0-5 [facility] Comment on above: Negative 0 - 5 Weak Positive 6 - 9 Positive >9Performed at: [address] [id number] Director: Alexys Romo PhD, Phone: [phone] Immunoglobulin Aon 5 IMMUNOGLOB A QN < 5 Low 61-437 [facility] Comment on above: Order Comment: N Result Comment: Resu lt confirmed on concentration. Performed at: [address] [id number] Powerplant Operator: Alexys Romo PhD, Phone: [phone] Performed By: #### L 3410.2920, L3200.1400 #### [facility] [address] [place], [place], [id number] t-Transglutaminase IgAon tTG IGA <2 Normal 0-3 [facility] Comment on above: Result Comment: Nega tive 0 - 3 Weak Positive 4 - 10 Positive >10 Tissue Transglutaminase (tTG) has been identified as the endomysial antigen. Studies have demonstr- ated that endomysial IgA antibodies have over 99% specificity for gluten sensitive enteropathy. Performed By: #### L 3410.2920, L3200.1400 #### [facility] [address] [place], [place], [id number] Gastroenterology Visit Repor ton 10-07-2024 Gastroenterology Visit Report [facility] [address] [place] [address] OFFICE VISIT Date of Service: 10/07/24 MR#: [id number] Acct: [id number] Name: DILSHAD PACK Rep #: [id number] : 1960 Provider: GONZALO oates Age/Sex: 64/M Location: [facility] Status: Signed Intake Vital Signs 01/10/22 13:53 10/07/24 14:09 Height 6 ft 2 in 6 ft 2 in Weight: 198 lb BMI 25.4 BP 139/85 H Respiration 16 Pulse 63 Pulse Oximetry (%) 95 Oxygen Delivery Method room air Intake Visit Reasons: Diarrhea Physician Assistant Required: No Is patient in pain?: No [...] blood in his stool in the past. [facility] Medical History Dizziness Epigastric pain Osteoarthritis IBS [...] Sclera: scler (more content not included)... Normal [facility] IgA [Mass/Vol]Ordered By: Adán Christianson on 10-07-2024 Immunoglobulin A < 5 mg/dL Low [address] [place] [address] Comment on above: Result confirmed on concentration.Performed at: [facility] [address] Director: Alexys Romo PhD, Phone: [phone] Serum or plasma IgA measurem ent (mass/volume)Ordered By: Kirsten Christianson on 10-07-2024 IgA [Mass/Vol] mg/dL Low [address] [place] [address] Comment on above: Result confirmed on concentration.Performed at: [facility] [address] [id number] Director: Alexys Romo PhD, Phone: [phone] Serum tissue transglutaminas e (tTG) IgA antibody assay (units/volume)Ordered By: Kirsten Christianson on 10-07-2024 tTG IgA Qn (S) <2 U/mL 0-3 [facility] Comment on above: Negative 0 - 3 Weak Positive 4 - 10 Positive >10 Tissue Transglutaminase (tTG) has been identified as the endomysial antigen. Studies have demonstr- ated that endomysial IgA antibodies have over 99% specificity for gluten sensitive enteropathy. tTG IgA Qn (S)Ordered By: Adán Christianson on 10-07-2024 Tissue Transglutaminase IgA Ab <2 U/mL 0-3 [facility] Comment on above: Negative 0 - [...] Negative- No toxigenic C. Diff Detected Normal [facility] Comment on above: Performed By: #### M 100.6796 #### [facility] [address] [place], [address] C. difficile DNA TOMAS+probe Q l (Unsp spec)Ordered By: Jorge Alberto Gar on 09-03-2024 Clostridioides difficile (PCR) [facility] Clostridium difficile detect ion by polymerase chain reactionOrdered By: Jorge Alberto Gar on 09-03-2024 C. difficile DNA TOMAS+probe Ql (Unsp spec) [facility] Basophil percentageOrdered B y: Jorge Alberto Gar on 09-03-2023 Bilirubin [Mass/Vol] 1.10 mg/dL 0.20-1.00 [facility] Comment on above: For patients on eltr ombopag therapy, use of [facility] [place] TBIL is not recommended. Chloride [Moles/Vol] 108 mmol/L 98-107 [facility] Cholesterol [Mass/Vol] 225 mg/dL <200 [facility] Comment on above: <200 mg/dL Desirable 200-240 mg/dL Borderline >240 mg/dL High Risk Glucose [Mass/Vol] 103 mg/dL 74-[address] [facility] Comment on above: Fasting Glucose resu lt from 100 to 125 mg/dL suggests IMPAIRED HOMEOSTASIS per A.D.A. criteria. Hemoglobin (Bld) [Mass/Vol] 14.4 g/dL 13.0-16.5 [facility] Potassium [Moles/Vol] 3.8 mmol/L 3.5-5.1 [facility] Protein [Mass/Vol] 7.1 g/dL 6.4-8.[address] [facility] Sodium [Moles/Vol] 137 mmol/L 136-[address] [facility] Triglyceride [Mass/Vol] 191 mg/dL <199 [facility] Comment on above: The drugs N-Acetylcy steine and Metamizole may falsely depress this assay.Serum Triglycerides Reference Interval Normal <150 mg/dL Borderline high 150 - 199 mg/dL High 200 - 499 mg/dL Very High > or = 500 mg/dL WBC (Bld) [#/Vol] 5.9 10*3/uL 4.4-11.[address] [facility] Determination of erythrocyte mean corpuscular volume (MCV)Ordered By: Jorge Alberto Gar on 09-03-2023 MCV (RBC) [Entitic vol] 88.1 fL 80-94 [facility] Erythrocyte distribution wid th ratioOrdered By: Jorge Alberto Gar on 09-03-2023 Erythrocyte distribution width (RBC) [Ratio] 12.4 % 11.6-14.6 [facility] Erythrocyte distribution wid th standard deviationOrdered By: Jorge Alberto Gar on 09-03-2023 Erythrocyte distribution width (RBC) [Entitic vol] 40.1 fL 35.1-43.[address] [facility] Hematocrit Auto (Bld) [Volum e fraction]Ordered By: Jorge Alberto Gar on 09-03-2023 Hematocrit (Bld) [Volume fraction] 42.8 % 40-54 [facility] Laboratory - Chemistry and C hemistry - challengeOrdered By: Jorge Alberto Gar on 09-03-2023 Albumin/Globulin [Mass ratio] 1.0 {ratio} 0.9-2.4 [facility] ALP [Catalytic activity/Vol] 67 U/L 45-117 [facility] ALT [Catalytic activity/Vol] 30 U/L 16-61 [facility] Cholesterol in HDL (Body fld) [Mass/Vol] 51 mg/dL >40 [facility] Comment on above: The drugs N-Acetylcy steine and Metamizole may falsely depress this assay. Reference Range HDL <40 mg/dL Low HDL Cholesterol HDL >or= 60 mg/dL High HDL Cholesterol Cholesterol in LDL (Body fld) [Moles/Vol] 136 mg/dL 0-130 [facility] Cholesterol in VLDL Calc [Moles/Vol] 38 mg/dL 5-40 [facility] CO2 [Moles/Vol] 27.0 mmol/L 21.0-32.0 [facility] Globulin (S) [Mass/Vol] 3.5 g/dL 2.2-4.2 [facility] Urea nitrogen/Creatinine [Mass ratio] 14.5 mg/mg 10-20 [facility] Laboratory - Hematology and Cell countsOrdered By: Jorge Alberto Gar on 09-03-2023 MCH (RBC) [Entitic mass] 29.6 pg 27.0-32.0 [facility] MCHC (RBC) [Mass/Vol] 33.6 g/dL 32-36 [facility] Platelets (Bld) [#/Vol] 236 10*3/uL 150-450 [facility] No Panel InformationOrdered By: Jorge Alberto Gar on 09-03-2023 Estimated GFR (MDRD) Amer 101 mL/min >60 [facility] Comment on above: GFR Calc Estimated GFR (MDRD) Non-Af Amer 83 mL/min >60 [facility] Comment on above: Non- GFR Calc Platelet mean volume Sukhjinder-Ec ker (Bld) [Entitic vol]Ordered By: Jorge Alberto Gar on 09-03-2023 Platelet mean volume (Bld) [Entitic vol] 9.2 fL 6.2-12.0 [facility] RBC Auto (Bld) [#/Vol]Ordere d By: Jorge Alberto Gar on 09-03-2023 RBC (Bld) [#/Vol] 4.86 10*6/uL 4.6-6.2 [facility] Screening prostate specific antigen (PSA) measurementOrdered By: Jorge Alberto Gar on 09-03-2023 Prostate specific Ag IA [Mass/Vol] 1.06 ng/mL 0.00-4.00 [facility] Comment on above: This test was perfor med using the TPSA assay method [facility]. Values obtained with differentassay methods cannot be used interchangably.When changing PSA assays in the course of monitoring apatient, additional sequential testing should be carriedout to confirm baseline values. Serum or plasma calcium marco urement (mass/volume)Ordered By: Jorge Alberto Gar on 09-03-2023 Calcium [Mass/Vol] 8.6 mg/dL 8.5-10.[address] [facility] Serum or plasma creatinine m easurement (mass/volume)Ordered By: Jorge Alberto Gar on 09-03-2023 Creatinine [Mass/Vol] 0.97 mg/dL 0.70-1.30 [facility] Comment on above: The validity of the calculated GFR & GFRAA in patients over 70 years has not been determined. Clinical correlation is essential. Serum or plasma urea nitroge n measurement (mass/volume)Ordered By: Jorge Alberto Gar on 09-03-2023 Urea nitrogen [Mass/Vol] 14 mg/dL 7-18 [facility] Thin prep Papanicolaou smear with manual screeningOrdered By: Jorge Alberto Gar on 09-03-2023 Thin prep Papanicolaou smear with manual screening 3.6 g/dL 3.2-5.0 [facility] Thin prep Papanicolaou smear with manual screening 24 U/L 15-37 [facility] Thin prep Papanicolaou smear with manual screening 2 5-15 [facility] Thin prep Papanicolaou smear with manual screening 12.8 mg/L NO RANGE EST. [facility] Urine albumin/creatinine rat io for detection of microalbuminuriaOrdered By: Jorge Alberto Gar on 09-03-2023 Albumin/Creatinine DL <= 1.0 mg/L (24H U) [Ratio] 6.3 mg/g CRE <30 [facility] Urine creatinine measurement (mass/volume)Ordered By: Jorge Alberto Gar on 09-03-2023 Creatinine (U) [Mass/Vol] 204.00 mg/dL NO RANGE EST. [facility] Whole blood hemoglobin A1c/t otal hemoglobin ratio (mass fraction)Ordered By: Jorge Alberto Gar on 09-03-2023 HbA1c (Bld) [Mass fraction] 5.0 % 3.8-5.6 [facility] Comment on above: Normal < 5.7 % Predi abetic 5.7 - 6.4 % Diabetic >or= 6.5 % Please note range changes. Basophil percentageon 2021 Basophil percentage < 0.9 mg/dL 0.70-1.30 [facility] Work Phone: No Panel Informationon 01-10 Bedside Estimated GFR (eGFR) > 60.0000 mL/min >60 [facility] Work Phone: Basophil percentageon 2021 Bilirubin [Mass/Vol] 0.70 mg/dL 0.20-1.00 [facility] Work Phone: Comment on above: For patients on eltr ombopag therapy, use of [facility] TBIL is not recommended. Chloride [Moles/Vol] 106 mmol/L 98-107 [facility] Work Phone: Cholesterol [Mass/Vol] 224 mg/dL <200 [facility] Work Phone: Comment on above: <200 mg/dL Desirable 200-240 mg/dL Borderline >240 mg/dL High Risk Glucose [Mass/Vol] 106 mg/dL 74-[address] [facility] Work Phone: Comment on above: Fasting Glucose resu lt from 100 to 125 mg/dL suggests IMPAIRED HOMEOSTASIS per A.D.A. criteria. Potassium [Moles/Vol] 3.7 mmol/L 3.5-5.1 [facility] Work Phone: Protein [Mass/Vol] 7.2 g/dL 6.4-8.[address] [facility] Work Phone: Sodium [Moles/Vol] 140 mmol/L 136-[address] [facility] Work Phone: Triglyceride [Mass/Vol] 226 mg/dL [facility] Work Phone: Comment on above: The drugs N-Acetylcy steine and Metamizole may falsely depress this assay.Serum Triglycerides Reference Interval Normal <150 mg/dL Borderline high 150 - 199 mg/dL High 200 - 499 mg/dL Very High > or = 500 mg/dL WBC (Bld) [#/Vol] 5.7 10*3/uL 4.4-11.[address] [facility] Work Phone: Blood erythrocytes count (nu mber/volume)on 12-05-2021 RBC (Bld) [#/Vol] 4.91 10*6/uL 4.6-6.2 [facility] Work Phone: Blood hemoglobin measurement (mass/volume)on 12-05-2021 Hemoglobin (Bld) [Mass/Vol] 14.4 g/dL 13.0-16.5 [facility] Work Phone: [phone] Blood platelet mean volumeon 12-05-2021 Platelet mean volume (Bld) [Entitic vol] 9.2 fL 6.2-12.0 [facility] Work Phone: [phone] Determination of erythrocyte mean corpuscular volume (MCV)on 12-05-2021 MCV (RBC) [Entitic vol] 86.4 fL 80-94 [facility] Work Phone: [phone] Hematocrit Auto (Bld) [Volum e fraction]on 12-05-2021 Hematocrit (Bld) [Volume fraction] 42.4 % 40-54 [facility] Work Phone: [phone] Laboratory - Chemistry and C hemistry - challengeon 12-05-2021 ALP [Catalytic activity/Vol] 56 U/L 45-117 [facility] Work Phone: ALT [Catalytic activity/Vol] 32 U/L 16-61 [facility] Work Phone: [phone] CO2 [Moles/Vol] 29.0 mmol/L 21.0-32.0 [facility] Work Phone: [phone] Globulin (S) [Mass/Vol] 3.6 g/dL 2.2-4.2 [facility] Work Phone: [phone] Urea nitrogen/Creatinine [Mass ratio] 16.7 mg/mg 10-20 [facility] Work Phone: [phone] Laboratory - Hematology and Cell countson 12-05-2021 Erythrocyte distribution width (RBC) [Entitic vol] 38.5 fL 35.1-43.[address] [facility] Work Phone: [phone] Erythrocyte distribution width (RBC) [Ratio] 12.2 % 11.6-14.6 [facility] Work Phone: [phone] MCH (RBC) [Entitic mass] 29.3 pg 27.0-32.0 [facility] Work Phone: MCHC Auto (RBC) [Mass/Vol]on 12-05-2021 MCHC (RBC) [Mass/Vol] 34.0 g/dL 32-36 [facility] Work Phone: No Panel Informationon 12-05 Estimated GFR (MDRD) Amer 84 mL/min >60 [facility] Work Phone: Comment on above: GFR Calc Estimated GFR (MDRD) Non-Af Amer 69 mL/min >60 [facility] Work Phone: Comment on above: Non- GFR Calc Prostate Specific Antigen Screen 1.46 ng/mL 0.00-4.00 [facility] Work Phone: Comment on above: This test was perfor med using the TPSA assay method for [employer] chemistry system. Values obtained with differentassay methods cannot be used interchangably.When changing PSA assays in the course of monitoring apatient, additional sequential testing should be carriedout to confirm baseline values. Thyroid Stimulating Hormone (TSH) 2.97 uIU/mL 0.358-3.74 [facility] Work Phone: Platelets bldon 12-05-2021 Platelets (Bld) [#/Vol] 272 10*3/uL 150-450 [facility] Work Phone: Serum or plasma albumin marco urement (mass/volume)on 12-05-2021 Albumin [Mass/Vol] 3.6 g/dL 3.2-5.[address] [facility] Work Phone: Serum or plasma albumin/glob ulin mass ratioon 12-05-2021 Albumin/Globulin [Mass ratio] 1.0 {ratio} 0.9-2.4 [facility] Work Phone: Serum or plasma calcium marco urement (mass/volume)on 12-05-2021 Calcium [Mass/Vol] 8.7 mg/dL 8.5-10.[address] [facility] Work Phone: Serum or plasma cholesterol in HDL measurement (mass/volume)on 12-05-2021 Cholesterol in HDL [Mass/Vol] 40 mg/dL [facility] Work Phone: Comment on above: The drugs N-Acetylcy steine and Metamizole may falsely depress this assay. Reference Range HDL <40 mg/dL Low HDL Cholesterol HDL >or= 60 mg/dL High HDL Cholesterol Serum or plasma cholesterol in VLDL measurement (mass/volume)on 12-05-2021 Cholesterol in VLDL [Mass/Vol] 45 mg/dL 5-40 [facility] Work Phone: Serum or plasma creatinine m easurement (mass/volume)on 12-05-2021 Creatinine [Mass/Vol] 1.14 mg/dL 0.70-1.30 [facility] Work Phone: Comment on above: The validity of the calculated GFR & GFRAA in patients over 70 years has not been determined. Clinical correlation is essential. Serum or plasma low density lipoprotein (LDL) cholesterol measurement (mass/volume)on 12-05-2021 Cholesterol in LDL [Mass/Vol] 139 mg/dL 0-130 [facility] Work Phone: Serum or plasma urea nitroge n measurement (mass/volume)on 12-05-2021 Urea nitrogen [Mass/Vol] 19 mg/dL 7-18 [facility] Work Phone: Thin prep Papanicolaou smear with manual screeningon 12-05-2021 Thin prep Papanicolaou smear with manual screening 17 U/L 15-37 [facility] Work Phone: Thin prep Papanicolaou smear with manual screening 5 5-15 [facility] Work Phone: Surgical Pathologyon 017 Surgical Pathology [phone] [facility] PATHOLOGY AND LABORATORY MEDICINE [address] [place] [id number] FINAL SURGICAL PATHOLOGY REPORT ___NAME: DILSHAD PACK .O.B.: 1960 57 Y M ELEANOR NO.: [id number]: [id number] PROCEDURE 07/21/2017 DATE:SURGEON: GABRIELA SHELTON RECEIVED [...] theirperformance characteristics determined by the clinical laboratories [facility]. They have not been cleared by [...] negativity on decalcified specimens.Professional Performing Location: [place] [address]. DEPARTMENT OF PATHOLOGY AND LABORATORY MEDICINE [place], [place] [address] Normal [facility] Comment on above: Performed By: #### S UR ####Performing Lab is in report Vital Signs Date Time Vital Sign Value Performing Clinician Faci daniel 05-16-2025 15:00-0400 Body height 187.96 cm Jorge Alberto Gongpkins MARKET DEVELOPMENT SPECIALIST-C Work Phone: [facility] 05-16-2025 15:00-0400 Body mass index (BMI) [Ratio] 26.6 kg/m2 Jorge Alberto Cong MARKET DEVELOPMENT SPECIALIST-C Work Phone: [facility] 05-16-2025 15:00-0400 Body temperature 97.8 [degF] Jorge Alberto Moscosokins MARKET DEVELOPMENT SPECIALIST-C Work Phone: [facility] 05-16-2025 15:00-0400 Body weight 94.34 kg Jorge Alberto Willacy MARKET DEVELOPMENT SPECIALIST-C Work Phone: [facility] 05-16-2025 15:00-0400 Diastolic blood pressure 72 mm[Hg] Jorge Alberto Willacy MARKET DEVELOPMENT SPECIALIST-C Work Phone: [facility] 05-16-2025 15:00-0400 Heart rate 80 /min Jorge Alberto Moscosokins MARKET DEVELOPMENT SPECIALIST-C Work Phone: [facility] 05-16-2025 15:00-0400 Respiratory rate 18 /min Jorge Alberto Gongpkins MARKET DEVELOPMENT SPECIALIST-C Work Phone: [facility] 05-16-2025 15:00-0400 SaO2% (BldA) [Mass fraction] 94 % Jorge Alberto Gongpkins MARKET DEVELOPMENT SPECIALIST-C Work Phone: [facility] 05-16-2025 15:00-0400 Systolic blood pressure 136 mm[Hg] Jorge Alberto Gongpkins MARKET DEVELOPMENT SPECIALIST-C Work Phone: [facility] 12-30-2024 08:04-0400 Body height 187.96 cm Jorge Alberto Gongpkins MARKET DEVELOPMENT SPECIALIST-C Work Phone: [facility] 12-30-2024 08:04-0400 Body mass index (BMI) [Ratio] 25.8 kg/m2 Jorge Alberto Gongpkins MARKET DEVELOPMENT SPECIALIST-C Work Phone: [facility] 12-30-2024 08:04-0400 Body weight 91.34 kg Jorge Alberto Gongpkins MARKET DEVELOPMENT SPECIALIST-C Work Phone: [facility] 12-30-2024 08:04-0400 Diastolic blood pressure 71 mm[Hg] Jorge Alberto Gongpkins MARKET DEVELOPMENT SPECIALIST-C Work Phone: [facility] 12-30-2024 08:04-0400 Heart rate 64 /min Jorge Alberto Gongpkins MARKET DEVELOPMENT SPECIALIST-C Work Phone: [facility] 12-30-2024 08:04-0400 Respiratory rate 17 /min Jorge Alberto Gongpkins MARKET DEVELOPMENT SPECIALIST-C Work Phone: [facility] 12-30-2024 08:04-0400 SaO2% (BldA) [Mass fraction] 92 % Jorge Alberto Willacy MARKET DEVELOPMENT SPECIALIST-C Work Phone: [facility] 12-30-2024 08:04-0400 Systolic blood pressure 157 mm[Hg] Jorge Alberto Willacy MARKET DEVELOPMENT SPECIALIST-C Work Phone: [facility] 12-07-2024 07:20-0400 Body temperature 97.7 [degF] Jroge Alberto Gar MARKET DEVELOPMENT SPECIALIST-C Work Phone: [facility] 12-07-2024 07:20-0400 Diastolic blood pressure 91 mm[Hg] Jorge Alberto Gar MARKET DEVELOPMENT SPECIALIST-C Work Phone: [facility] 12-07-2024 07:20-0400 Heart rate 60 /min Jorge Alberto Gar MARKET DEVELOPMENT SPECIALIST-C Work Phone: [facility] 12-07-2024 07:20-0400 Respiratory rate 16 /min Jorge Alberto Gar MARKET DEVELOPMENT SPECIALIST-C Work Phone: [facility] 12-07-2024 07:20-0400 SaO2% (BldA) [Mass fraction] 95 % Jorge Alberto Gar MARKET DEVELOPMENT SPECIALIST-C Work Phone: [facility] 12-07-2024 07:20-0400 Systolic blood pressure 140 mm[Hg] Jorge Alberto Gar MARKET DEVELOPMENT SPECIALIST-C Work Phone: [facility] 12-07-2024 05:52-0400 Body mass index (BMI) [Ratio] 25.5 kg/m2 Jorge Alberto Gar MARKET DEVELOPMENT SPECIALIST-C Work Phone: [facility] 12-07-2024 05:52-0400 Body weight 90.26 kg Jorge Alberto Gar MARKET DEVELOPMENT SPECIALIST-C Work Phone: [facility] 10-07-2024 14:09-0500 Body height 187.96 cm Jorge Alberto Gar MARKET DEVELOPMENT SPECIALIST-C Work Phone: [facility] 10-07-2024 14:09-0500 Body mass index (BMI) [Ratio] 25.4 kg/m2 Jorge Alberto Gar MARKET DEVELOPMENT SPECIALIST-C Work Phone: [facility] 10-07-2024 14:09-0500 Body weight 89.81 kg Jorge Alberto Gar MARKET DEVELOPMENT SPECIALIST-C Work Phone: [facility] 10-07-2024 14:09-0500 Diastolic blood pressure 85 mm[Hg] Jorge Alberto Gongpkins MARKET DEVELOPMENT SPECIALIST-C Work Phone: [facility] 10-07-2024 14:09-0500 Heart rate 63 /min Jorge Alberto Gar MARKET DEVELOPMENT SPECIALIST-C Work Phone: [facility] 10-07-2024 14:09-0500 Respiratory rate 16 /min Jorge Alberto Gar MARKET DEVELOPMENT SPECIALIST-C Work Phone: [facility] 10-07-2024 14:09-0500 SaO2% (BldA) [Mass fraction] 95 % Jorge Alberto Gar MARKET DEVELOPMENT SPECIALIST-C Work Phone: [facility] 10-07-2024 14:09-0500 Systolic blood pressure 139 mm[Hg] Jorge Alberto oGngpkins MARKET DEVELOPMENT SPECIALIST-C Work Phone: [facility] 01-10-2022 14:21-0400 Diastolic blood pressure 90 mm[Hg] MARKET DEVELOPMENT SPECIALIST-C Jorge Alberto Gongpkins MARKET DEVELOPMENT SPECIALIST Work Phone: [facility] Work Phone: 01-10-2022 14:21-0400 Heart rate 55 /min MARKET DEVELOPMENT SPECIALIST-C Jorge Alberto Gar MARKET DEVELOPMENT SPECIALIST Work Phone: [facility] Work Phone: 01-10-2022 14:21-0400 Respiratory rate 16 /min MARKET DEVELOPMENT SPECIALIST-C Jorge Alberto Gar MARKET DEVELOPMENT SPECIALIST Work Phone: [facility] Work Phone: 01-10-2022 14:21-0400 SaO2% (BldA) [Mass fraction] 97 % MARKET DEVELOPMENT SPECIALIST-C Jorge Alberto Gongpkins MARKET DEVELOPMENT SPECIALIST Work Phone: [facility] Work Phone: 01-10-2022 14:21-0400 Systolic blood pressure 158 mm[Hg] MARKET DEVELOPMENT SPECIALIST-C Jorge Alberto Gongpkins MARKET DEVELOPMENT SPECIALIST Work Phone: [facility] Work Phone: 01-10-2022 13:53-0400 Body height 187.96 cm MARKET DEVELOPMENT SPECIALIST-C Jorge Alberto Gongpkins MARKET DEVELOPMENT SPECIALIST Work Phone: [facility] Work Phone: 01-10-2022 13:53-0400 Body mass index (BMI) [Ratio] 25 kg/m2 MARKET DEVELOPMENT SPECIALIST-rKistina Gar MARKET DEVELOPMENT SPECIALIST Work Phone: [facility] Work Phone: 01-10-2022 13:53-0400 Body weight 88.45 kg MARKET DEVELOPMENT SPECIALIST-C Jorge Alberto Gar MARKET DEVELOPMENT SPECIALIST Work Phone: [facility] Work Phone: Encounters Encounter Date Encounter Type Care Provider Facility Start: 05-23-2025 End: 05-23-2025 ambulatory Kirsten Christianson Facility:[facility] Start: 05-16-2025 End: 05-16-2025 Patient encounter procedure Kirsten CAMACHOC -[facility] Work Phone: Start: 05-16-2025 End: 05-16-2025 ambulatory Jorge Alberto Gar NP-C Work Phone: -[facility] Start: 02-24-2025 End: 02-28-2025 ambulatory JORGE ALBERTO GAR GARAGEMAN - DANCE CHOREOGRAPHER Facility:[facility] Start: 02-24-2025 End: 02-28-2025 Outreach Lab JORGE ALBERTO GAR GARAGEMAN - DANCE CHOREOGRAPHER [facility] Start: 12-30-2024 End: 12-30-2024 Patient encounter procedure Kirsten CAMACHOC -[facility] Work Phone: Start: 12-30-2024 End: 12-30-2024 ambulatory Jorge Alberto Gar MARKET DEVELOPMENT SPECIALIST-C Work Phone: [facility] Work Phone: Start: 12-07-2024 ambulatory Jorge Alberto Gar MARKET DEVELOPMENT SPECIALIST Facility:[facility] Start: 12-07-2024 Non-patient / Non-visit Tae Gerber DO -[facility] Start: 12-07-2024 End: 12-07-2024 Admission to same day surgery center Tae Gerber DO -Endoscopy Work Phone: Start: 12-07-2024 End: 12-07-2024 ambulatory Jorge Alberto Gar NP Facility:[facility] Start: 11-08-2024 End: 11-08-2024 ambulatory Jorge Alberto Gar MARKET DEVELOPMENT SPECIALIST-C Work Phone: [facility] Work Phone: Start: 11-08-2024 End: 11-08-2024 Patient encounter procedure Kirsten Christianson NP-C -Laboratory, Specimen Work Phone: Start: 11-08-2024 End: 11-08-2024 ambulatory Kirsten Christianson Facility:[facility] Start: 11-02-2024 End: 11-02-2024 ambulatory Jorge Alberto Gar MARKET DEVELOPMENT SPECIALIST-C Work Phone: [facility] Work Phone: Start: 11-02-2024 End: 11-02-2024 Patient encounter procedure Kirsten CAMACHOC -Laboratory Work Phone: Start: 11-02-2024 End: 11-02-2024 ambulatory Kirsten Christianson Facility:[facility] Start: 10-07-2024 End: 10-07-2024 ambulatory Jorge Alberto Gar MARKET DEVELOPMENT SPECIALIST-C Work Phone: [facility] Work Phone: Start: 10-07-2024 End: 10-07-2024 Patient encounter procedure Kirsten Christianson NP-C -Laboratory Work Phone: Start: 10-07-2024 End: 10-07-2024 Patient encounter procedure Kirsten Christianson NP-C -[facility] Work Phone: Start: 10-07-2024 End: 10-07-2024 ambulatory Jorge Alberto Gar MARKET DEVELOPMENT SPECIALIST Facility:[facility] Start: 10-07-2024 End: 10-07-2024 ambulatory Kirsten Christianson Facility:[facility] Start: 09-03-2024 End: 09-03-2024 Patient encounter procedure Jorge Alberto Gar MARKET DEVELOPMENT SPECIALIST-C -Laboratory, Specimen Work Phone: Start: 09-03-2024 End: 09-03-2024 ambulatory Jorge Alberto Gar MARKET DEVELOPMENT SPECIALIST Facility:[facility] Start: 09-03-2023 End: 09-03-2023 ambulatory [facility] Work Phone: Start: 09-03-2023 End: 09-03-2023 Patient encounter procedure [facility]-Laboratory Work Phone: Start: 01-14-2022 Non-patient / Non-visit MARKET DEVELOPMENT SPECIALIST-C Jorge Alberto Gar MARKET DEVELOPMENT SPECIALIST Work Phone: [facility] Start: 01-10-2022 End: 01-10-2022 Patient encounter procedure MARKET DEVELOPMENT SPECIALIST-C Jorge Alberto Gar MARKET DEVELOPMENT SPECIALIST Work Phone: [facility] Start: 12-05-2021 End: 12-05-2021 Patient encounter procedure [facility]-Laboratory Start: 07-21-2017 Ambulatory UNKNOWN PROVIDER [facility] Procedures Date Procedure Procedure Detail Performing Clinician Start: 09-03-2024 Clostridium difficil e detection Jorge Alberto Gar MARKET DEVELOPMENT SPECIALIST-C Work Phone: Start: 01-10-2022 CT angiography of co ronary arteries MARKET DEVELOPMENT SPECIALIST-C Jorge Alberto Gar MARKET DEVELOPMENT SPECIALIST Work Phone: Start: 08-04-2000 Vasectomy JORGE ALBERTO CERVANTES GARAGEMAN - DANCE CHOREOGRAPHER Plan of Treatment Date Care Activity Detail Author Start: 05-23-2025 Retinol [Mass/volume] in Serum or Plasma [facility] Start: 05-23-2025 Tissue transglutaminase IgG Ab [Units/volume] in Serum [facility] Start: 05-23-2025 Patient encounter procedure Registered Clinical -Laboratory Work Phone: Start: 12-07-2024 Sigmoidoscopy flx w/biopsy single/multiple SIGMOIDOSCOPY AND BIOPSY [facility] Start: 12-07-2024 Patient discharge [facility] Patient Education Understanding Coronary Calcium Scan [facility] Work Phone: Patient referral [facility] Work Phone: Protein measurement [facility] Immunizations Immunization Date Immunization Notes Care Provider Fa cility 04-25-2021 SARS-CoV-2 (COVID-19 ) mRNA-[id number] vaccine JORGE ALBERTO GAR GARAGEMAN - DANCE CHOREOGRAPHER [facility] [place] Comment on above: Result Comment: 2021: [id number] 03-26-2021 SARS-CoV-2 (COVID-19 ) mRNA-[id number] vaccine JORGE ALBERTO GAR GARAGEMAN - DANCE CHOREOGRAPHER [facility] [place] Comment on above: Result Comment: 2020: [id number] 05-04-2017 influenza virus vaccine, unspecified formulation JORGE ALBERTO GAR GARAGEMAN - DANCE CHOREOGRAPHER [facility] [place] 05-04-2015 influenza virus vaccine, unspecified formulation JORGE ALBERTO GAR GARAGEMAN - DANCE CHOREOGRAPHER [facility] [place] 03-24-2015 tetanus toxoid, redu jerry diphtheria toxoid, and acellular pertussis vaccine, adsorbed JORGE ALBERTO GAR GARAGEMAN - DANCE CHOREOGRAPHER [facility] 06-04-2014 influenza virus vaccine, unspecified formulation JORGE ALBERTO GAR GARAGEMAN - DANCE CHOREOGRAPHER [facility] Payers Date Payer Category Payer Private Health Insurance [id number] [id number] Private Health Insurance [id number] 2024 Self-pay [id number] 1960 Unknown [id number] 2.16. [id number] Unknown Unknown [id number] Unknown [id number] Unknown . [id number] Unknown [id number] 2.16.8 [id number] Unknown [id number] 2.16.8 [id number] Unknown [id number] 2.16.8 [id number] Unknown [id number] 2.16.8 [id number] Unknown [id number] 2.16.8 [id number] Unknown [id number] 2.16.8 [id number] Unknown [id number] 2.16.8 [id number] Unknown [id number] 2.16.8 [id number] Unknown [id number] 2.16.8 [id number] Unknown [id number] 2.16.8 [id number] Social History Date Type Detail Facility Tobacco smoking stat us DEIS Unknown if ever smoked [facility] Work Phone: Start: 1960 Sex Assigned At Male [facility] Start: 10-07-2024 End: 05-16-2025 Tobacco smoking status DEIS Never smoked tobacco (finding) [facility] Comment on above: No smoke exposure Start: 01-27-2019 End: 10-20-2024 Sex Male (finding) [facility] Sexual Orientation Ella Jaramillo Mcgregor Sex Male [facility] Goals Date Patient Goal Desired Activity /State Mental Status Date Assessment Result Facility 12-07-2024 Cognitive function Level Of Cons ciousness Sedated [facility] Work Phone: 12-07-2024 Cognitive function Patient Bala farnsworth Person;Place;Time [facility] Work Phone: 01-10-2022 Cognitive function Level Of Cons ciousness Awake;Alert [facility] Work Phone: Clinical Notes 10-07-2024 to 05-16-2025 Note Date & Type Note Facility 05-16-2025 Progress note [facility] 05-16-2025 Progress note Note Date/Time May 16, 2025 3:29pm [facility] [address] [place] [address] OFFICE VISIT Date of Service: 05/16/25 MR#: [id number] Acct: [id number] Name: DILSHAD PACK Rep #: [id number] : 1960 Provider: GONZALO Christianson Age/Sex: 65/M Location[place] [facility] [place] Status: Signed Intake Vital Signs 12/30/24 08:04 [...] Reasons: 4 M FU Chief Complaint: follow-up Physician Assistant Required: No Accompanied by: Self Is patient [...] likely contributor to his chronic diarrhea. Note: [employer] speech recognition infertility nurse software was used to create portions of this document. Sound-alike and misspelled words, as well as other infertility nurse errors may be contained in the documentation. [...] well nourished Orientation: alert and oriented x3 [facility] Head: normocephalic Ears: hearing grossly normal [...] <Electronically signed by Kirsten SÁNCHEZ> Date _ Kirsten Christianson NP-C Sofi Signature: Date (if applicable) CC: ~ [facility] Work Phone: 1(148) 727-439005-06-2025 [facility] Medical Records Department [address] [place] [address] History Physical Exam 12/07/2449 MR#: [id number] Acct: [id number] Name: DILSHAD PACK Rep #: [id number] : 1960 64 From: Tae Gerber DO PCP: GONZALO Coyle Status:[place] [facility] [place] Location: [place] [address] HPI - General General Date of Admission: [...] celiac disease - Meloxicam 15[facility]D [facility] Medical History Wears glasses Anxiety Marijuana use [...] soft to palpation, non-tende (more content not included)...[facility]03-06-2025 Evaluation note* Diagnosis Onset Date Resolution Status Admit Date Fecal urgency acute October 07, 2024 1:45pm Irritable bowel syndrome wit h diarrhea acute October 07, 2024 1:45pm Diarrhea noneactive October 07 1:45pm [facility] Work Phone: [phone]) 344-348603-06-2025 Evaluation note* Diagnosis Onset Date Resolution Status Admit Date Fecal urgency acute October 07, 2024 1:45pm Irritable bowel syndrome wit h diarrhea acute October 07, 2024 1:45pm Diarrhea noneactive October 07 1:45pm Diarrhea acute December 07, 2024 5:11am Fecal urgency acute December 07 5:11am [facility] Work Phone: Evaluation + Plan note Future [...] Chest 2 Views (PA & Lateral) 07/11/24 [facility] Evaluation noteNo assessment information available [facility] Work Phone: Evaluation note* Diagnosis Onset Date Resolution Status Admit Date Celiac disease acute May 162024 2:48pm Diarrhea acute May 16, 2025 2:48pm Lymphocytic colitis acute Octob er 2024 2:48pm [facility] Work Phone: Hospital course Narrative No data available for this section [facility] Discharge instructions No data available for this section [facility] Progress note No data available for this section [facility] Reason for referral (narrative)No reason for [facility]: Summary Purpose Family History No [...] Do you have a Healthcare Power of Security Advisor? No December 03, 2024 1:58pm Chief Complaint [...] section and content) DATE CREATED AUTHOR 01/27/2018 [facility] DATE CREATED AUTHOR AUTHOR'S ORGANIZ ATION 03/02/2025 [facility] DATE CREATED AUTHOR AUTHOR'S ORGANIZ ATION 06/05/2025 [facility] Goals (unrecognized section and content) Goals [...] MD Family Provider Active Jorge Alberto Gar MARKET DEVELOPMENT SPECIALIST, MARKET DEVELOPMENT SPECIALIST-C Primary Care Provider Active Team Status: Inactive Member Role Status Dates Jorge Alberto Gar MARKET DEVELOPMENT SPECIALIST, MARKET DEVELOPMENT SPECIALIST-C Primary Care Provider, Attending Provider, Referring Provider Active Team Status: Inactive Member Role Status Dates Jorge Alberto Gar MARKET DEVELOPMENT SPECIALIST, MARKET DEVELOPMENT SPECIALIST-C Primary Care Provider Active Start: August End: September 03, 2024 Jorge Alberto Gar MARKET DEVELOPMENT SPECIALIST, MARKET DEVELOPMENT SPECIALIST-C Attending Provider Active Start: September 03, 2024 End: September 03, 2024 Jorge Alberto Gar MARKET DEVELOPMENT SPECIALIST, MARKET DEVELOPMENT SPECIALIST-C Referring Provider Active Start: September 03, 2024 End: September 03, 2024 Team Status: Inactive Member Role Status Dates Jorge Alberto Gar MARKET DEVELOPMENT SPECIALIST, MARKET DEVELOPMENT SPECIALIST-C Primary Care Provider Active Start: October 07, 2024 End: October 07, 2024 Jorge Alberot Gar MARKET DEVELOPMENT SPECIALIST, MARKET DEVELOPMENT SPECIALIST-C Referring Provider Ac tive Start: October 07, 2024 End: October 07, 2024 Kirsten Christianson MARKET DEVELOPMENT SPECIALIST-C Attending Provider Active Start: October 07, 2024 End: October 07, 2024 Team Status: Inactive Member Role Status Dates Jorge Alberto Gar MARKET DEVELOPMENT SPECIALIST, MARKET DEVELOPMENT SPECIALIST-C Primary Care Provider Active Start: October 07, 2024 End: October 07, 2024 Kirsten Christianson MARKET DEVELOPMENT SPECIALIST-C Attending Provider Active Start: October 07, 2024 End: October 07, 2024 Kirsten Christianson MARKET DEVELOPMENT SPECIALIST-C Referring Provider Active Start: October 07, 2024 End: October 07, 2024 Team Status: Inactive Member Role Status Dates Jorge Alberto Gar MARKET DEVELOPMENT SPECIALIST, MARKET DEVELOPMENT SPECIALIST-C Primary Care Provider Active Start: November 02, 2024 End: November 02, 2024 Kirsten Christianson MARKET DEVELOPMENT SPECIALIST-C Attending Provider Active Start: November 02, 2024 End: November 02, 2024 Kirsten Christianson MARKET DEVELOPMENT SPECIALIST-C Referring Provider Active Start: November 02, 2024 End: November 02, 2024 Team Status: Inactive Member Role Status Dates Jorge Alberto Gar MARKET DEVELOPMENT SPECIALIST, MARKET DEVELOPMENT SPECIALIST-C Primary Care Provider Active Start: November 08, 2024 End: November 08, 2024 Kirsten Christianson MARKET DEVELOPMENT SPECIALIST-C Attending Provider Active Start: November 08, 2024 End: November 08, 2024 Kirsten Christianson MARKET DEVELOPMENT SPECIALIST-C Referring Provider Active Start: November 08, 2024 End: November 08, 2024 Team Status: Active Member Role Status Dates Jorge Alberto Gar MARKET DEVELOPMENT SPECIALIST, MARKET DEVELOPMENT SPECIALIST-C Primary Care Provider Active Team Status: Inactive Member Role Status Dates Jorge Alberto Gar MARKET DEVELOPMENT SPECIALIST, MARKET DEVELOPMENT SPECIALIST-C Primary Care Provider Active Start: December 07, 2024 End: December 07, 2024 Jorge Alberto Gar NP, MARKET DEVELOPMENT SPECIALIST-C Referring Provider Ac tive Start: December 07, 2024 End: December 07, 2024 Dr. Tae Gerber DO Attending Provider Active Start: December 07, 2024 End: December 07, 2024 Team Status: Active Member Role Status Dates Jorge Alberto Gar MARKET DEVELOPMENT SPECIALIST, MARKET DEVELOPMENT SPECIALIST-C Primary Care Provider Active Start: December 07, 2024 Jorge Alberto Gar NP, MARKET DEVELOPMENT SPECIALIST-C Referring Provider Ac tive Start: December 07, 2024 Dr. Tae Gerber DO Attending Provider Active Start: December 07, 2024 Dr. Tae Gerber DO Other Provider Active St art: December 07, 2024 Team Status: Inactive Member Role Status Dates Jorge Alberto Gar MARKET DEVELOPMENT SPECIALIST, MARKET DEVELOPMENT SPECIALIST-C Primary Care Provider Active Start: December 30, 2024 End: December 30, 2024 Jorge Alberto Gar MARKET DEVELOPMENT SPECIALIST, MARKET DEVELOPMENT SPECIALIST-C Referring Provider Ac tive Start: December 30, 2024 End: December 30, 2024 GONZALO Wing Attending Provider Active Start: December 30, 2024 End: December 30, 2024 Team Status: Active Member Role/Relationship Status Dates Jorge Alberto Gar MARKET DEVELOPMENT SPECIALIST, MARKET DEVELOPMENT SPECIALIST-C Primary care physicia n Active Team Status: Inactive Member Role/Relationship Status Dates Jorge Alberto Gar NP, MARKET DEVELOPMENT SPECIALIST-C Primary care physician Active Start: May 162024 End: May 16, 2025 Jorge Alberto Gar NP, MARKET DEVELOPMENT SPECIALIST-C Referring Provider Active Start: May 16, 2025 End: May 16, 2025 GONZALO Wing Attending physician Active Start: May 16, 2025 End: May 16, 2025 Team Status: Active Member Role/Relationship Status Dates Jorge Alberto Gar NP, MARKET DEVELOPMENT SPECIALIST-C Primary care physician Active Start: May 232024 [...] BE BASED ON THE PRIMARY CLINICAL RECORDS. [employer] [facility]. provides no warranty or guarantee of the accuracy or completeness of information in this document.
[2025-07-31 19:18] VITALS: BMI 26.2
[2025-07-31 20:00] VITALS: BP 149/82; PULSE 70; RESP 16; TEMP 36.5; O2SAT 96
[2025-07-31] MEDS: Dextrose 5%/0.9% NaCl 1,000 ML 100 ML IV (20:16)
[2025-07-31] MEDS: dilTIAZem 60 MG CAP.SR.12H PO (21:51)
[2025-08-01] VITALS (15 sets, daily range): BP systolic 133–158; BP diastolic 66–85; PULSE 57–76; RESP 12–16; TEMP 36.6–37.1; O2SAT 92–98
[2025-08-01] MEDS: Piperacil/Tazobactam 3.375 GM in 0.9% Normal Saline (50mL MB+) 50 ML IV ×2 (05:02→14:42)
[2025-08-01] MEDS: Dextrose 5%/0.9% NaCl 1,000 ML 100 ML IV (05:03)
[2025-08-01 07:05] LABS: Hematocrit 38.0 % (40-54); Hemoglobin 13.3 g/dL (13.0-16.5); Immature Granulocytes Count 0.010 X10^3/uL (0.0-0.0); Mean Corp Hgb Conc 35.0 g/dL (32-36); Mean Corpuscular Volume 85.0 fL (80-94); Mean Platelet Vol. 9.4 fl (6.2-12.0); NRBC Flagged by Analyzer 0 % (0-5); Platelet Count 207 K/mm3 (150-450); RBC Distribution Width CV 12.8 % (11.6-14.6); RBC Distribution Width SD 39.2 fl (35.1-43.9); Red Blood Count 4.47 M/mm3 (4.6-6.2); White Blood Count 4.6 K/mm3 (4.4-11.0)
[2025-08-01 07:35] LABS: Anion Gap 7 (7-18); BUN 10 mg/dL (4-19); BUN/Creat Ratio 8.7 RATIO (10-20); Calcium,Total 8.5 mg/dL (7.6-11.0); Carbon Dioxide 26.8 mmol/L (20.0-29.0); Chloride 110 mmol/L (96-106); Estimated Creatinine Clearance 75.77 ml/min (50-250); Glucose 107 mg/dL (70-99); Potassium 3.5 mmol/L (3.5-5.1)
[2025-08-01] MEDS: dilTIAZem 60 MG CAP.SR.12H PO (09:01)
--- NOTE | 2025-08-01 10:10 | PCM.HP.STD ---
HPI - General General Date of Admission: 07/31/25 Date of Service: 08/01/25 Chief Complaint: Abdominal pain and diarrhea HPI Narrative STEFFANIE PACK, is a 65 M who presented to the [facility] emergency department last evening with complaints of diarrhea and abdominal pain. He states that the diarrhea began the evening of July 28. He states that he had several bouts of diarrhea along with several episodes of nausea and vomiting. He initially thought that he had a viral illness or food poisoning. No other close contacts were ill prior to or after he began having symptoms. He denied any fevers or chills. He states that the diarrhea persisted however the nausea and vomiting stopped. Over the past couple days he has also noticed abdominal pain becoming more pronounced. He states that it was difficult for him to lay on the side due to pain. He also states that he cannot stand upright secondary to pain. He presented himself to the emergency room where he was seen and evaluated. Blood work was unremarkable. CT scan showed some inflammatory changes around the appendix although the appendix itself appeared to be normal in size. Surgery consult was obtained as there was concern for appendicitis. Even though of the history was not classic for appendicitis given the diarrhea, we decided to admit the patient for observation. This morning he states that he is still having pain mostly on the right side of the abdomen although this can be somewhat diffuse as well. He admits that he is still having some diarrhea. [facility] Medical History (Updated 08/01/25 @ 10:[address] Jose Ramon Escamilla MD) Abdominal pain Hx of sigmoidoscopy Wears glasses Anxiety Marijuana use Alcohol use Arthritis Dietary restriction Gastric reflux Non-smoker History of irregular heartbeat History of echocardiogram History of stress test Cardiology follow-up encounter Dizziness Epigastric pain Osteoarthritis IBS (irritable bowel syndrome) HTN (hypertension) Sciatica Essential (primary) hypertension Insomnia Chronic low back pain Anxiety and depression Hyperlipidemia Dilated aortic root Non-sustained ventricular tachycardia Home Medications ?Medication ?Instructions ?Recorded ?Last Taken ?Type multivitamin 1 tab PO DAILY 12/09/20 12/05/24 History alprazolam 0.25 mg tablet 0.25 mg PO BID PRN anxiety 12/13/20 Unknown History fluticasone propionate 50 1 spray intranasal DAILY PRN 12/13/20 Unknown History mcg/actuation nasal allergy symptoms spray,suspension (Flonase Allergy Relief) diltiazem HCl 120 mg 60 mg PO BID 10/07/24 12/06/24 07:00 History capsule,extended release 24 hr pantoprazole 20 mg tablet,delayed 20 mg PO QDAY 10/07/24 12/05/24 History release tadalafil 5 mg tablet 5 mg PO QDAY 10/07/24 Unknown History zolpidem 10 mg tablet 10 mg PO QHS 10/07/24 12/06/24 History Allergy/AdvReac Type Severity Reaction Status Date / Time Sulfa (Sulfonamide Allergy hives Verified 07/31/25 14:43 Antibiotics) clarithromycin (From Biaxin) AdvReac diarrhea Verified 07/31/25 14:43 Family History Father Cancer throat Mother Hypertension Arthritis Grandfather Alcoholism Myocardial infarction Surgical History History of discectomy History of vasectomy Social History Smoking Status: Never smoker alcohol intake: current alcohol intake frequency: 3 or more drinks per day Alcohol type: hard liquor substance use type: marijuana ROS Constitutional Constitutional: Reports systems reviewed and no addt'l complaints, except as documented Eyes Eyes: Reports systems reviewed and no addt'l complaints, except as documented ENT HEENT: Reports systems reviewed and no addt'l complaints, except as documented Cardiovascular Cardiovascular: Reports systems reviewed and no addt'l complaints, except as documented Respiratory/Chest Respiratory/Chest: Reports systems reviewed and no addt'l complaints, except as documented Gastrointestinal Gastrointestinal: Reports systems reviewed and no addt'l complaints, except as documented Patient's Goals Of Care . What would you like to achieve or improve as a result of your hospital stay?: . Vital Signs Vital Signs Vital Signs: 07/31/25 14:43 07/31/25 16:43 07/31/25 18:00 Temperature 98 F Temperature Source Oral Pulse Rate 87 77 70 Respiratory Rate 14 16 18 Respiratory Effort Respiratory Depth Respiratory Pattern Blood Pressure 141/85 H 141/77 H 154/76 H Blood Pressure Mean 103 98 102 Blood Pressure Source Blood Pressure Position Blood Pressure Location Pulse Ox 98 100 97 Oxygen Delivery Method Room Air Room Air 07/31/25 18:49 07/31/25 20:00 07/31/25 20:00 Temperature 97.6 F L 97.7 F L Temperature Source Temporal Pulse Rate 64 70 Respiratory Rate 18 16 Respiratory Effort Normal Non-Labored Respiratory Depth Normal Respiratory Pattern Normal Blood Pressure 168/90 H 149/82 H Blood Pressure Mean 116 104 Blood Pressure Source Monitor Blood Pressure Position Semi-Fowlers Blood Pressure Location Right Arm Pulse Ox 94 96 Oxygen Delivery Method Room Air Room Air 08/01/25 02:05 08/01/25 08:51 Temperature 97.8 F 97.9 F Temperature Source Oral Oral Pulse Rate 57 L 66 Respiratory Rate 16 16 Respiratory Effort Respiratory Depth Respiratory Pattern Blood Pressure 138/80 H 140/79 H Blood Pressure Mean 99 99 Blood Pressure Source Monitor Monitor Blood Pressure Position Semi-Fowlers Semi-Fowlers Blood Pressure Location Left Arm Left Arm Pulse Ox 96 96 Oxygen Delivery Method Room Air Room Air Weight Weight: 204 lb Body Mass Index (BMI) 26.2 Physical Exam Narrative The patient is alert and oriented x 3. He is in no acute distress. Head is normocephalic and atraumatic. Pupils are equal round and reactive to light. Abdomen is soft and somewhat distended. He has mild diffuse tenderness to palpation however he is most tender with deep palpation in the right lower quadrant. No rebound or guarding Results Medical Records Data Attestation: I reviewed the patient's medical records Lab / Micro Data Attestation: I reviewed the patient's lab results. 08/01/25 06:33 08/01/25 06:33 Labs: Laboratory Results - last 24 hr 07/31/25 14:50: WBC 5.9, RBC 5.22, Hgb 15.4, Hct 44.3, MCV 84.9, MCH 29.5, MCHC 34.8, RDW Std Deviation 39.8, RDW Coeff of Yariel 12.9, Plt Count 219, MPV 9.3, Immature Gran % (Auto) 0.200, Neut % (Auto) 69.8, Lymph % (Auto) 17.5 L, [place] % (Auto) 11.2 H, Eos % (Auto) 1.0, Baso % (Auto) 0.3, Absolute Neuts (auto) 4.1, Absolute Lymphs (auto) 1.03, Nucleated RBC % 0, Sodium 140, Potassium 3.8, Chloride 103, Carbon Dioxide 29.2 H, Anion Gap 8, BUN 15, Creatinine 1.28 H, Estim Creat Clear Calc 66.89, Est GFR (MDRD) Non-Af 62, BUN/Creatinine Ratio 11.4, Glucose 111 H, Calcium 9.6, Total Bilirubin 0.59, AST 23, ALT 32, Alkaline Phosphatase 54, Total Protein 7.0, Albumin 3.9, Globulin 3.1, Albumin/Globulin Ratio 1.3, Lipase 44 07/31/25 16:06: Urine Color Straw, Urine Clarity Clear, Urine pH 6.0, Ur Specific [place] 1.010, Urine Protein Negative, Urine Glucose (UA) Normal, Urine Ketones Negative, Urine Occult Blood 50 H, Urine Nitrite Negative, Urine Bilirubin Negative, Urine Urobilinogen Normal, Ur Leukocyte Esterase Negative, Urine RBC 0-5 SEEN, Urine WBC 0-5 SEEN, Ur Squamous Epith Cells 0 SEEN, Urine Bacteria 0 SEEN, Urine Mucus 0 SEEN 08/01/25 06:33: WBC 4.6, RBC 4.47 L, Hgb 13.3, Hct 38.0 L, MCV 85.0, MCH 29.8, MCHC 35.0, RDW Std Deviation 39.2, RDW Coeff of Yariel 12.8, Plt Count 207, MPV 9.4, Immature Gran % (Auto) 0.200, Neut % (Auto) 59.1, Lymph % (Auto) 26.0, [place] % (Auto) 11.9 H, Eos % (Auto) 2.6, Baso % (Auto) 0.2, Absolute Neuts (auto) 2.7, Absolute Lymphs (auto) 1.20, Nucleated RBC % 0, Sodium 143, Potassium 3.5, Chloride 110 H, Carbon Dioxide 26.8, Anion Gap 7, BUN 10, Creatinine 1.13, Estim Creat Clear Calc 75.77, Est GFR (MDRD) Non-Af 72, BUN/Creatinine Ratio 8.7 L, Glucose 107 H, Calcium 8.5 Micro: Microbiology 07/31/25 16:23 Stool Enteric Bacteriology - Final 07/31/25 16:23 Stool Clostridioides difficile (PCR) - Final Imaging Radiology Impression Abdomen/Pelvis CT 07/31/25 15:56 IMPRESSION: No bowel obstruction. No obstructive uropathy or urolithiasis. Although the appendix appears unremarkable in size, there are mild periappendiceal inflammatory changes, which may represent early or mild diverticulitis. Reading Location: [id number] Assessment & Plan Assessment/Plan (1) Diarrhea: (2) Abdominal pain: PLAN: Plan The patient is a 65-year-old male admitted with complaints of abdominal pain and diarrhea. The symptoms have been present for several days. Workup in the emergency department included a CAT scan which showed some inflammatory changes in the right lower quadrant around the appendix even though the appendix itself appeared to be relatively normal. Clinically he does have pain in the right lower quadrant which could be consistent with appendicitis. Given the nausea and vomiting I cannot exclude the possibility of superimposed viral illness or other GI illness. I have offered him diagnostic laparoscopy and appendectomy as treatment. We discussed the details of the planned procedure including risks benefits alternatives. He wishes to proceed. This will be scheduled sometime today based on OR availability Charges/Coding Visit Charges Inpatient E&M: 87912 Init Hosp L3
[2025-08-01] MEDS: 0.9% Normal Saline (1000mL) 1,000 ML 15 ML IV (11:19)
--- NOTE | 2025-08-01 11:32 | PRE.ANES_ITS ---
ASA Classification* ASA Classification ASA Classification: E Assessment & Plan Anesthesia* Anesthesia Assessment Anesthesia Assessment: Discussed sedation and/or anesthesia options, risks, benefits, and alternatives with patient/parents/legal guardian/POA. Questions invited. The patient/parents/legal guardian/POA seems to understand and agrees to proceed with anesthesia plan. Reviewed the physical assessment, medical history, allergy history and patient home medications list prior to surgery/procedure/anesthetic and documented any changes. Performed airway and anesthesia risk assessments. Anesthesia Type Anesthesia Type: General History Source History Obtained from:: Patient and Chart Anesthesia Focused Assessment* Temperature: 98.8 F Pulse Rate: 61 Blood Pressure: 157/72 Respiratory Rate: 14 Pulse Ox: 96 Oxygen Delivery Method: Room Air Airway Assessment Mouth opens: >3 cm Mallampati Score: II Teeth Condition: Intact and Missing Neck Range of motion (ROM): Full ROM Labs Anesthesia Preop lab: CBC WBC, (4.4-11.0) 4.6 K/mm3 Today, 06:33 RBC, (4.6-6.2) 4.47 M/mm3 L Today, 06:33 Hgb, (13.0-16.5) 13.3 g/dL Today, 06:33 Hct, (40-54) 38.0 % L Today, 06:33 Plt Count, (150-450) 207 K/mm3 Today, 06:33 CHEMISTRY Potassium, (3.5-5.1) 3.5 mmol/L Today, 06:33 Sodium, (135-145) 143 mmol/L Today, 06:33 BUN, (4-19) 10 mg/dL Today, 06:33 Creatinine, (0.70-1.20) 1.13 mg/dL Today, 06:33 Glucose, (70-99) 107 mg/dL H Today, 06:33 TSH, (0.358-3.74) 2.97 uIU/mL 12/05/21, 16:37 COAG Pre-Assessment Diagnosis/Proposed Procedure Planned Operative Procedure(s): Laparoscopic appendectomy Anesthesia History Anesthesia History - folding machine setter: Anesthesia History - folding machine setter Hx Hospitalization No 12/03/24 13:58 Any Problems With Anesthesia No 12/03/24 13:58 Cholinesterase deficiency No 12/03/24 13:58 You/Your Family Experience No 12/03/24 13:58 fever (hyperthermia) with Relationship Recent Exposure to Contagious No 12/07/24 05:51 Disease Does patient have nerve No 12/03/24 13:58 stimulator Patient instructed to have device shut off --Does patient have Pacemaker or ICD? When Was Last Pacemaker Check QUESTION #4 FULL TEXT: You/Your Family Experience fever (hyperthermia) with Anesthesia Last Oral Intake Last Oral intake: Last Oral Intake NPO since Meds taken in AM with sips of water? Meds patient instructed to take am of surgery PONV PONV - folding machine setter: PONV - folding machine setter Female HX of Motion Sickness HX of N/V After Surgery Non-Smoker Duration of Surgery greater than 60 minutes Number of Risk Factors PONV Score Height & Weight Height & Weight: Anesthesia: Height & Weight Height 6 ft 2 in 07/31/25 19:18 Weight: 92.533 kg 07/31/25 19:18 Body Mass Index (BMI) 26.2 07/31/25 19:18 Respiratory Assessment Respiratory Assessment - folding machine setter: Respiratory Tract Infection Hx - folding machine setter Hx Respiratory Tract Infection No 12/03/24 13:58 STOP Sleep Apnea STOP Sleep Apnea - folding machine setter: STOP Sleep Apnea - folding machine setter Hx Hypertension Yes 07/31/25 19:18 Hx Sleep Apnea No 07/31/25 19:18 CPAP BIPAP Do you snore loudly (louder No 07/31/25 19:18 than talking or can be heard Do you often feel tired/ No 07/31/25 19:18 fatigued/ sleepy during daytime? Has anyone observed you stop No 07/31/25 19:18 breathing during sleep? STOP Results Negative 07/31/25 19:18 QUESTION #5 FULL TEXT : Do you snore loudly (louder than talking or can be heard through closed doors)? Tobacco Use History Tobacco Use History - folding machine setter: Tobacco Use History - folding machine setter Tobacco Use Smoking Status Never smoker 07/31/25 19:18 Hx Tobacco Use No 07/31/25 19:18 Years Smoking Packs Smoked per Day Smoking Cessation Date was within the last 15 years Hx Smoking Cessation Date Hx Smoking Cessation Counseling Hematologic Medial History Hematologic Hx - folding machine setter: Hematologic Medical Hx - spool sorter Hx of Blood Transfusion Yes 07/31/25 19:18 Hx of Transfusion in last 3 No 07/31/25 19:18 Months Date of Last Transfusion (if within last 3 months) Ever experience any problems No 07/31/25 19:18 with transfusion(s)? Specify any problems Hx of Preganancy in last 3 N/A 07/31/25 19:18 Months Nurse Filling Out Transfusion LSMITH 07/31/25 19:18 & Questions: Date: 07/31/25 07/31/25 19:18 Time: 19:38 07/31/25 19:18 Patient unable to answer at this time (ie. confused, unrespo /Reproduction History /Reproductive History - folding machine setter: /Reproductive Hx- folding machine setter Hx Now Gestational Age (in weeks): EDC: Hx Hx Para Hx Section SAB Does the father of the baby or his family experience fever w Father of the baby Malignant Hypertension history comment Active Medications Active Medications: Current Medications Generic Name Dose Route Start Last Admin Trade Name Freq PRN Reason Stop Dose Admin Acetaminophen 1,000 mg 07/31/25 22:00 08/01/25 05:01 Acetaminophen 500 Mg Tablet PO 1,000 mg Q8 YOUSUF Administration Alprazolam 0.25 mg 07/31/25 21:03 Alprazolam 0.25 Mg Tablet PO BID PRN PRN ANXIETY Clarify Med Order 1 each 07/31/25 21:15 07/31/25 21:52 Clarify Order NOTE Not Given CLARIFY YOUSUF Diltiazem HCl 60 mg 07/31/25 22:00 08/01/25 09:01 Diltiazem 60 Mg Cap.Sr.12h PO 60 mg BID YOUSUF Administration Protocol Fluticasone Propionate 1 spray 07/31/25 21:04 Fluticasone 0.05% 1 [place] Nasal.Sry NASAL DAILY PRN allergy symptoms Dextrose/Sodium Chloride 1,000 mls @ 100 mls/hr 07/31/25 19:17 08/01/25 05:03 Dextrose 5%/0.9% Nacl IV 100 mls/hr .Q10H YOUSUF Administration Piperacillin Sod/Tazobactam 50 mls @ 12.5 mls/hr 08/01/25 06:00 08/01/25 09:02 Sod 3.375 gm/ Sodium Chloride IV Infused Q8 YOUSUF Infusion Sodium Chloride 250 mls @ 15 mls/hr 07/31/25 19:20 IV .[id number] PRN Saline Flush Sodium Chloride 250 mls @ 15 mls/hr 07/31/25 19:20 IV .[id number] PRN Additional IVPB Infusion Sodium Chloride 1,000 mls @ 15 mls/hr 08/01/25 11:00 08/01/25 11:19 IV 15 mls/hr .Q48H YOUSUF Administration Morphine Sulfate 2 - 4 mg 07/31/25 19:17 Morphine 2 Mg/Ml Syringe IV Q3H PRN PRN Pain Score 6-10 Ondansetron HCl 4 mg 07/31/25 19:17 Ondansetron 4 Mg/2 Ml Vial IV Q8H PRN PRN NAUSEA/VOMITING Oxycodone HCl 5 mg 07/31/25 19:17 08/01/25 05:01 Oxycodone 5 Mg Tablet PO 5 mg Q4H PRN PRN Administration Pain Score 4-10 Pantoprazole Sodium 40 mg 08/01/25 10:00 08/01/25 09:01 Pantoprazole Sodium 40 Mg Tablet PO 40 mg DAILY YOUSUF Administration Sodium Chloride 10 - 40 ml 07/31/25 19:20 0.9% Saline Lock 10 Ml Syringe IV UD PRN SALINE FLUSH Zolpidem Tartrate 5 mg 07/31/25 21:12 08/01/25 00:12 Zolpidem Tartrate 5 Mg Tablet PO 5 mg QHS PRN Administration INSOMNIA PFSH Medical History Abdominal pain Hx of sigmoidoscopy Wears glasses Anxiety Marijuana use Alcohol use Arthritis Dietary restriction Gastric reflux Non-smoker History of irregular heartbeat History of echocardiogram History of stress test Cardiology follow-up encounter Dizziness Epigastric pain Osteoarthritis IBS (irritable bowel syndrome) HTN (hypertension) Sciatica Essential (primary) hypertension Insomnia Chronic low back pain Anxiety and depression Hyperlipidemia Dilated aortic root Non-sustained ventricular tachycardia Home Medications ?Medication ?Instructions ?Recorded ?Last Taken ?Type multivitamin 1 tab PO DAILY 12/09/20 05/0 11/26 History alprazolam 0.25 mg tablet 0.25 mg PO BID PRN anxiety 0 12/13/20 Unknown History fluticasone propionate 50 1 spray intranasal DAILY PRN 12/13/20 Unknown History mcg/actuation nasal allergy symptoms spray,suspension (Flonase Allergy Relief) diltiazem HCl 120 mg 60 mg PO BID 10/07/24 07:00 History capsule,extended release 24 hr pantoprazole 20 mg tablet,delayed 20 mg PO QDAY 12/05/24 History release tadalafil 5 mg tablet 5 mg PO QDAY 10/07/24 Unknow n History zolpidem 10 mg tablet 10 mg PO QHS 10/07/24 History Allergy/AdvReac Type Severity Reaction Status Date / Time Sulfa (Sulfonamide Allergy hives Verified 07/31/25 14:43 Antibiotics) clarithromycin (From Biaxin) AdvReac diarrhea Verified 07/31/25 14:43 Family History Father Cancer throat Mother Hypertension Arthritis Grandfather Alcoholism Myocardial infarction Surgical History History of discectomy History of vasectomy Social History Smoking Status: Never smoker alcohol intake: current alcohol intake frequency: 3 or more drinks per day Alcohol type: hard liquor substance use type: marijuana Review of Systems (Anesthesia) ROS Narrative System reviewed and no additional complaints, except as documented.
--- NOTE | 2025-08-01 12:00 | APP_PTH ---
PATIENT: STEFFANIE PACK LOC: [id number] U#:[id number] AGE/SX: 65/M ROOM: [facility] RE07/31/[address]: Dr. Jose Ramon Escamilla MD : 1960 BED: 1 DIS: 08/01/2025 SPEC #: [id number] RECD: 08/01/25 13:53 STATUS: DYAN FIELD #: [id number] TIFFANY: 08/01/25 12:[address]: Jose Ramon Escamilla DEPT: SURGICAL PATHOLOGY RECD BY: Mago Polanco ENTERED: 08/01/25 14:00 SP TYPE: APPENDIX OTHR DR: Jorge Alberto Gar, OCTAVIO-C Tissues: Appendix, NOS Procedures: Surgery Specimen Level III HEADER OPERATION: Laparoscopic, appendectomy PRE-OP DIAGNOSIS: Diarrhea, abdominal pain TISSUE SUBMITTED: A. Appendix MICROSCOPIC DIAGNOSIS A. Appendix, appendectomy: - Acute appendicitis. - Fibrous obliteration of the distal lumen. MICROSCOPIC DESCRIPTION Slides are reviewed. GROSS DESCRIPTION The specimen is received in one properly labeled container. ?Part A is designated appendix and consists of a 4.3 cm in length vermiform appendix ranging in diameter from 0.4 to 1.0 cm. ?The serosal surface is sawant-pink and smooth and there is 2.9 x 1.9 x 1.2 cm of attached adipose tissue. ?Sectioning through the appendix reveals a dilated lumen in the proximal aspect (0.4 cm in diameter) filled with mildly hemorrhagic soft material. ?The mucosa at the dilated area is mildly hemorrhagic. ?No distinct perforation is identified. ?RS 2 Cassettes: A1, proximal resection margin (en face) and bisected distal tip A2, contracts representative appendiceal cross sections to include dilated lumen [facility] 08/01/2025 CPT: 89586
[2025-08-01] MEDS: Lidocaine 1% (5 ml sdv) 5 ML Vial IV (12:12)
[2025-08-01] MEDS: fentaNYL 100 MCG/2 ML Ampul IV (12:12)
[2025-08-01] MEDS: Bupiv/Epi 0.25% 30 ML Vial (12:45)
--- NOTE | 2025-08-01 13:04 | OP.PCM_ITS ---
Procedures Digestive 40xxx-49xxx: 21088 Laparoscopy appendectomy Operative Report (Standard) Operative Information Date of Procedure: 08/01/25 Pre-Operative Diagnosis: Acute appendicitis Post-Operative Diagnosis: Same Surgery/Procedure Performed: Laparoscopic appendectomy photographic equipment mechanic: Yes Candy Packer: Luciana Rhoades Tasks completed by assistant center director: Closing and Retracting Additional financial planning assistant?: No Type of Anesthesia: General and Local RN Documented Start/Stop Times: Operation Date: 08/01/25 12:00 Case Time Into Pre-Op 08/01/25 10:55 Out of Pre-Op 08/01/25 12:01 Anesthesia Start 08/01/25 12:07 Into Room 08/01/25 12:07 Procedure Start 08/01/25 12:27 Procedure Start Time: : Procedure Stop Time: 13:03 Select all DRAINS/GRAFTS/IMPLANTS that apply: None Special Medications: IV Zosyn Estimated Blood Loss: Minimal Specimen collected: Yes Description of specimen(s) removed: Appendix Description of surgery: The patient is a 65-year-old male who presented to the emergency department overnight with several day history of abdominal tenderness mostly in the right lower quadrant as well as several day history of diarrhea. Patient does have a history of microscopic colitis for which she had diarrhea previously which was treated with steroids. When seen in the emergency room, he had a normal white blood cell count however CT scan seemed to indicate some inflammation in the fat around the appendix. This was thought to be potentially consistent with mild appendicitis. His pain was in the right lower quadrant and so he was admitted with plans for appendectomy. We discussed the details of the planned procedure including risks benefits and alternatives. He wished to proceed. He was brought to the operating today following informed consent. Antibiotics were being given. Timeout was performed. He was placed supine on the operative table with arms outstretched and arm boards. Anesthesia was induced. Once adequately sedated, his arms were comfortably tucked at his sides. His abdomen was prepped and draped in the usual manner. Local anesthetic was infiltrated just below the umbilicus which a 5 mm incision was made. A 5 mm trocar was then inserted optically. This was placed without incident. Once in place the abdomen was then fully insufflated with CO2 gas. A 5 mm 0 degree scope was inserted. There were no signs of bowel or vascular injury. Next, a 5 mm trocar was placed in the left lower quadrant and a 12 mm trocar was placed in the left upper quadrant. Both of these were placed under direct visualization and without difficulty. The patient was then placed into Trendelenburg positioning as well as some roll to the left. I was then able to identify the cecum and the appendix. The appendix was fairly small but did appear somewhat fibrosed and there was some firm inflammation involving the fat surrounding the appendix. This was mostly at the midportion of the appendix. In order to perform the appendectomy, a [place] dissector was then used to create a small window in the mesentery near the base of the appendix. A KATERIN stapler was fired across the base the appendix essentially flush with the cecum. Next 2 vascular loads were used to transect the mesoappendix. The specimen was then free and was then placed into a bag. The specimen was brought out through the 12 mm trocar site. The trocar was then replaced. The right lower quadrant was copiously irrigated with saline. Hemostasis was excellent. The fascia at the 12 mm trocar site was closed using 0 PDS with the aid of the fascial closure device. This closed the fascia nicely. The remaining trocars were opened up and insufflation was allowed to escape. All 30 cc of local anesthetic were used throughout the course of the operation. The incisions were then closed with 4-0 Vicryl. Skin glue was applied as dressing. He was awakened anesthesia and taken to recovery in good condition. Surgical Findings: Mild appendicitis Complications Complications: No Admit VTE Documentation VTE Present on Admission: Yes VTE Mechan Device Prophylaxis: SCD's VTE Pharm Prophylaxis ordered?: No Reason prophylaxis not ordered: Treatment Not Indicated
--- NOTE | 2025-08-01 13:04 | PCM.POST.ANE ---
Anesthesia: Postop Eval I Current Vital Signs Temperature: 98.3 F Pulse Rate: 70 Blood Pressure: 133/77 Respiratory Rate: 16 Pulse Ox: 95 Oxygen Delivery Method: Room Air Assessment Airway patent: Yes Spontaneous unlabored respirations: Yes Mental status: Awake and Calm nausea: No Vomiting: No Anesthesia Complication: No Fluid Hydration Crystalloid volume administer (ml): 600 Total IV fluid infused: 600 Progress Note Anesthesia document: Postop Eval 1 completed: Yes
--- NOTE | 2025-08-01 13:47 | POSTOPAN2_ITS ---
Anesthesia Postop Eval I Sum Postop Eval Completion status Anesthesia document: Postop Eval 1 completed: Yes Anesthesia Postop Eval I Summary Anesthesia Postop Eval I Summary: Anesthesia Postop Eval I: Assessment Summary Airway patent Yes 08/01/25 13:10 AERODYNAMICS PROFESSOR.MEDM Spontaneous unlabored Yes 08/01/25 13:10 AERODYNAMICS PROFESSOR.MEDM respirations Mental status Awake,Calm 08/01/25 13:10 AERODYNAMICS PROFESSOR.MEDM nausea No 08/01/25 13:10 AERODYNAMICS PROFESSOR.MEDM Vomiting No 08/01/25 13:10 AERODYNAMICS PROFESSOR.MEDM Anesthesia Postop Eval I: Fluid Summary Crystalloid volume administer 600 08/01/25 13:10 AERODYNAMICS PROFESSOR.MEDM (ml) Colloids volume administered ( ml) Blood Product volume administered (ml) Total IV fluid infused 600 08/01/25 13:10 AERODYNAMICS PROFESSOR.MEDM Anesthesia Postop Eval I: Summary Notes Anesthesia Complication No 08/01/25 13:10 AERODYNAMICS PROFESSOR.MEDM Anesthesia Complication Comment: Post-operative progress note Anesthesia: Postop Eval II Evaluation Mental status: Awake and Calm Pain Level: 1 nausea: No Vomiting: No Complications Anesthesia Complication: No
--- NOTE | 2025-08-01 13:47 | PCM.POSTANE2 ---
Anesthesia Postop Eval I Sum Postop Eval Completion status Anesthesia document: Postop Eval 1 completed: Yes Anesthesia Postop Eval I Summary Anesthesia Postop Eval I Summary: Anesthesia Postop Eval I: Assessment Summary Airway patent Yes 08/01/25 13:10 TESTER COMPRESSED GASES.MEDM Spontaneous unlabored Yes 08/01/25 13:10 TESTER COMPRESSED GASES.MEDM respirations Mental status Awake,Calm 08/01/25 13:10 TESTER COMPRESSED GASES.MEDM nausea No 08/01/25 13:10 TESTER COMPRESSED GASES.MEDM Vomiting No 08/01/25 13:10 TESTER COMPRESSED GASES.MEDM Anesthesia Postop Eval I: Fluid Summary Crystalloid volume administer 600 08/01/25 13:10 TESTER COMPRESSED GASES.MEDM (ml) Colloids volume administered ( ml) Blood Product volume administered (ml) Total IV fluid infused 600 08/01/25 13:10 TESTER COMPRESSED GASES.MEDM Anesthesia Postop Eval I: Summary Notes Anesthesia Complication No 08/01/25 13:10 TESTER COMPRESSED GASES.MEDM Anesthesia Complication Comment: Post-operative progress note Anesthesia: Postop Eval II Evaluation Mental status: Awake and Calm Pain Level: 1 nausea: No Vomiting: No Complications Anesthesia Complication: No
--- NOTE | 2025-08-01 15:14 | PCM.DC.SUM ---
Providers Date of Admission: 07/31/25 Date of Discharge: 08/01/25 Primary Care Physician: Jorge Alberto Gar, [employer] C[employer]TER [employer]EDER-C Reason For Visit: ABDOMINAL PAIN Diagnosis Discharge Diagnosis (1) Diarrhea: Status: Acute Code(s): R19.7 - Diarrhea, unspecified (2) Abdominal pain: Status: Acute Code(s): R10.9 - Unspecified abdominal pain Plan The patient is a 65-year-old male admitted with complaints of abdominal pain and diarrhea. The symptoms have been present for several days. Workup in the emergency department included a CAT scan which showed some inflammatory changes in the right lower quadrant around the appendix even though the appendix itself appeared to be relatively normal. Clinically he does have pain in the right lower quadrant which could be consistent with appendicitis. Given the nausea and vomiting I cannot exclude the possibility of superimposed viral illness or other GI illness. I have offered him diagnostic laparoscopy and appendectomy as treatment. We discussed the details of the planned procedure including risks benefits alternatives. He wishes to proceed. This will be scheduled sometime today based on OR availability Medications at Discharge Home Medications multivitamin 1 tab PO DAILY 12/09/20 alprazolam 0.25 mg tablet 0.25 mg PO BID PRN anxiety 12/13/20 fluticasone propionate 50 mcg/actuation nasal spray,suspension (Flonase Allergy Relief) 1 spray intranasal DAILY PRN allergy symptoms 12/13/20 diltiazem HCl 120 mg capsule,extended release 24 hr 60 mg PO BID 10/07/24 pantoprazole 20 mg tablet,delayed release 20 mg PO QDAY 10/07/24 tadalafil 5 mg tablet 5 mg PO QDAY 10/07/24 zolpidem 10 mg tablet 10 mg PO QHS 10/07/24 oxycodone 5 mg tablet 5 mg PO Q8H PRN pain 3 days #12 tabs 08/01/25 Hospital Course Operations appendectomy Summary of Care Provided Minutes Spent on Discharge: 15 Hospital Course: The patient is a 65-year-old male who presented to the emergency department last evening with several day history of diarrhea and now abdominal pain. ER workup included a CT scan that showed possible early appendicitis. He was subsequently admitted. He did indeed have right lower quadrant pain. As a result, I laparoscopic appendectomy was recommended and performed. The patient did have very mild appendicitis. He felt significantly better after surgery. He had no further right lower quadrant pain. He is tolerating diet and pain is well-controlled. We anticipate discharge to home later today Physical Exam Const alert, oriented x3 and no apparent distress Weight / BMI Weight Weight: 204 lb Body Mass Index (BMI) 26.2 ABG / Lab / Microbiology Data 08/01/25 06:33 08/01/25 06:33 Laboratory: Laboratory Results - last 24 hr 07/31/25 14:50: Sodium 140, Potassium 3.8, Chloride 103, Carbon Dioxide 29.2 H, Anion Gap 8, BUN 15, Creatinine 1.28 H, Estim Creat Clear Calc 66.89, Est GFR (MDRD) Non-Af 62, BUN/Creatinine Ratio 11.4, Glucose 111 H, Calcium 9.6, Total Bilirubin 0.59, AST 23, ALT 32, Alkaline Phosphatase 54, Total Protein 7.0, Albumin 3.9, Globulin 3.1, Albumin/Globulin Ratio 1.3, Lipase 44 07/31/25 16:06: Urine Color Straw, Urine Clarity Clear, Urine pH 6.0, Ur Specific Irma 1.010, Urine Protein Negative, Urine Glucose (UA) Normal, Urine Ketones Negative, Urine Occult Blood 50 H, Urine Nitrite Negative, Urine Bilirubin Negative, Urine Urobilinogen Normal, Ur Leukocyte Esterase Negative, Urine RBC 0-5 SEEN, Urine WBC 0-5 SEEN, Ur Squamous Epith Cells 0 SEEN, Urine Bacteria 0 SEEN, Urine Mucus 0 SEEN 08/01/25 06:33: WBC 4.6, RBC 4.47 L, Hgb 13.3, Hct 38.0 L, MCV 85.0, MCH 29.8, MCHC 35.0, RDW Std Deviation 39.2, RDW Coeff of Yariel 12.8, Plt Count 207, MPV 9.4, Immature Gran % (Auto) 0.200, Neut % (Auto) 59.1, Lymph % (Auto) 26.0, [place] % (Auto) 11.9 H, Eos % (Auto) 2.6, Baso % (Auto) 0.2, Absolute Neuts (auto) 2.7, Absolute Lymphs (auto) 1.20, Nucleated RBC % 0, Sodium 143, Potassium 3.5, Chloride 110 H, Carbon Dioxide 26.8, Anion Gap 7, BUN 10, Creatinine 1.13, Estim Creat Clear Calc 75.77, Est GFR (MDRD) Non-Af 72, BUN/Creatinine Ratio 8.7 L, Glucose 107 H, Calcium 8.5 Microbiology: Microbiology 07/31/25 16:23 Stool Enteric Bacteriology - Final 07/31/25 16:23 Stool Clostridioides difficile (PCR) - Final Radiography Diagnostic Testing: Radiology Impression Abdomen/Pelvis CT 07/31/25 15:56 IMPRESSION: No bowel obstruction. No obstructive uropathy or urolithiasis. Although the appendix appears unremarkable in size, there are mild periappendiceal inflammatory changes, which may represent early or mild diverticulitis. Reading Location: [id number] D/C Instructions Return to work on: 08/08/25 May shower in (days): 1 Lifting Restrictions: No lifting pushing or pulling more than 20 pounds for 4 weeks from the day Call your doctor if your incision/area has: Continuous Slow Oozing, Sudden Increased Bleeding, Increased Pain/ Swelling, Increased Redness, Foul Smelling Discharge and Swelling at the incision site Call your doctor if you observe: Fever of 101 or Higher Cleanse incision/area with: Soap & Water DC O2, CPAP, BIPAP Needs Home O2 Discharge instructions: No DC home with Oxygen: No Please Follow Up With: Jose Ramon Escamilla MD When: 2 weeks. Please call office to schedule appointment Meaningful Use Info Meaningful Use Meaningful Use Diagnoses (Choose all that apply): None applicable Discharge Plan Admission Admit Date/Time: 07/31/25 18:24 Primary Reason for Your Visit: Abdominal pain and diarrhea Attending Provider: Jose Ramon Escamilla Primary Care Provider: Jorge Alberto Gar [employer] C[employer]TER FEEDER Discharge Orders/Prescriptions Prescriptions: New oxycodone 5 mg tablet 5 mg PO Q8H PRN (Reason: pain) 3 Days Qty: 12 0RF Continued diltiazem HCl 120 mg capsule,extended release 24hr 60 mg PO BID multivitamin Tablet 1 tab PO DAILY alprazolam 0.25 mg tablet 0.25 mg PO BID PRN (Reason: anxiety) fluticasone propionate [Flonase Allergy Relief] 50 mcg/actuation spray,suspension 1 spray intranasal DAILY PRN (Reason: allergy symptoms) Rx Instructions: administer into each nostril zolpidem 10 mg tablet 10 mg PO QHS pantoprazole 20 mg tablet,delayed release (DR/EC) 20 mg PO QDAY tadalafil 5 mg tablet 5 mg PO QDAY Referrals / Follow Up: Jorge Alberto Gar R[employer] C[employer]TER FEEDER, [employer]ER-C [Primary Care Provider, Family Practice] Disposition Disposition (needs filled in before D/C Order can be placed): Home, Self Care
[2025-08-01] MEDS: CLARIFY ORDER 1 EACH NOTE (15:38)
== END 2025-08-01 18:55 | disposition home or self-care (01) ==
LOC: ED 18:31 → MS3 18:48
PROVIDERS: Admitting Provider Surgery; Emergency Provider Emergency Medicine; PCP Nurse Practitioner Family; Visit Provider Surgery
PROC: 0DTJ4ZZ Resection of Appendix, Percutaneous Endoscopic Approach (ICD-10-PCS; CPT 44970; principal; 2025-08-01 11:40)
DX: K35.80 Unspecified acute appendicitis (principal); K21.9 Gastro-esophageal reflux disease without esophagitis; Z79.899 Other long term (current) drug therapy; E78.5 Hyperlipidemia, unspecified; I10 Essential (primary) hypertension
CPT/HCPCS: 44970; 00840; 36415; 74177; 80048; 80053; 81001; 83690; 85025; 87493; 87506; 88304; 96361; 96365; 96366; 96375; 99221; 99284; Q9967; A4216; G0378; J2405